=== PATIENT | female | born 1960 | race Caucasian/White ===

== ENCOUNTER → 2018-03-12 10:34 | Outpatient (CLI) | payer OTHER, SELFPAY ==
[2018-03-12 14:34] LABS: Bilirubin Urine UA NEGATIVE (NEGATIVE); Color Urine UA YELLOW; Glucose Urine UA NEGATIVE (Normal); Ketones Urine UA NEGATIVE (NEGATIVE); Leukocyte Esterase Urine UA 3+ (NEGATIVE); Nitrite Urine UA Negative (Negative); Occult Blood Urine UA TRACE-LYSED (Negative); Protein Urine UA NEGATIVE (Negative); Specific Gravity Urine UA <=1.005 (1.000-1.035); Urobilinogen Urine UA 0.2 E.U./dL (0.2)
[2018-03-12 14:59] LABS: Appearance Urine UA Slightly Cloudy; RBC Urine 0-1/HPF (0-5/HPF)
[2018-03-12 15:00] LABS: Bacteria Urine Many (>30); Culture Indicated Urine Specimen Cultured; Mucus Urine 1+ (Negative); Squamous Epithelial Cell Urine 0-1 /HPF; WBC Urine 30-100/HPF (0-5/HPF)
== END ==
PROVIDERS: PCP Family Medicine; Visit Provider Internal Medicine
DX: R30.0 Dysuria (principal)
CPT/HCPCS: 81001; 87077; 87086; 87186

== ENCOUNTER → 2018-03-27 14:28 | Outpatient (CLI) | payer OTHER, SELFPAY ==
[2018-03-27 14:36] LABS: Bacteria Urine None Seen
[2018-03-27 15:01] LABS: Appearance Urine UA CLEAR; Bilirubin Urine UA NEGATIVE (NEGATIVE); Color Urine UA ORANGE; Ketones Urine UA NEGATIVE (NEGATIVE); Occult Blood Urine UA NEGATIVE (Negative); Specific Gravity Urine UA <=1.005 (1.000-1.035)
[2018-03-27 15:32] LABS: Culture Indicated Urine Specimen Cultured; RBC Urine 0-1/HPF (0-5/HPF); WBC Urine 10-30/HPF (0-5/HPF)
== END ==
PROVIDERS: Visit Provider Internal Medicine
DX: R39.9 Unspecified symptoms and signs involving the genitourinary system (principal)
CPT/HCPCS: 81001; 87077; 87086; 87186

== ENCOUNTER → 2018-05-15 12:51 | Outpatient (CLI) | payer OTHER, SELFPAY ==
[2018-05-15 13:37] LABS: Add Manual Diff / Slide Review NO; Basophils Percent Auto 0.6 % (0-2); Eosinophils Percent Auto 0.5 % (2-4); Hematocrit 41.1 % (36-46); Hemoglobin 13.7 g/dL (12.0-16.0); Lymphocytes Percent Auto 22.8 % (25-40); Mean Corpuscular HGB Conc 33.4 % (30-36); Mean Corpuscular Hemoglobin 32.7 PG (26-34); Monocytes Percent Auto 6.8 % (3-14); Neutrophils Absolute Auto 4200 /uL (3000-5900); Neutrophils Percent Auto 69.3 % (50-75); Platelet Count 299 X10^3/uL (150-400); Red Blood Cell Count 4.19 X10^6/uL (4.0-5.2); White Blood Cell Count 6.1 X10^3/uL (4.5-11.0)
[2018-05-15 13:48] LABS: Alanine Aminotransferase 25 IU/L (9-52)
[2018-05-15 13:51] LABS: C-Reactive Protein Quant < 0.5 mg/dL (<1.0)
[2018-05-15 14:13] LABS: Erythrocyte Sedimentation Rate 4 MM/HR (0-20)
[2018-05-16 12:58] LABS: Add Manual Diff / Slide Review NO; Basophils Percent Auto 0.7 % (0-2); Eosinophils Percent Auto 1.2 % (2-4); Hematocrit 39.5 % (36-46); Hemoglobin 13.2 g/dL (12.0-16.0); Lymphocytes Percent Auto 29.2 % (25-40); Mean Corpuscular HGB Conc 33.4 % (30-36); Mean Corpuscular Hemoglobin 32.8 PG (26-34); Mean Corpuscular Volume 98.1 fL (80-100); Monocytes Percent Auto 9.3 % (3-14); Neutrophils Absolute Auto 3000 /uL (3000-5900); Neutrophils Percent Auto 59.6 % (50-75); Platelet Count 289 X10^3/uL (150-400); Red Blood Cell Count 4.03 X10^6/uL (4.0-5.2); Red Cell Distribution Width 12.9 % (11.6-14.8); White Blood Cell Count 5.1 X10^3/uL (4.5-11.0)
[2018-05-16 13:07] LABS: Alanine Aminotransferase 24 IU/L (9-52); Albumin 4.5 g/dL (3.5-5.0); Albumin Globulin Ratio 1.6 (1.0-2.8); Alkaline Phosphatase 49 U/L (38-126); Aspartate Aminotransferase 26 IU/L (14-36); Bilirubin Total 0.8 mg/dL (0.2-1.3); Blood Urea Nitrogen 14 mg/dL (7-17); Calcium 9.4 mg/dL (8.4-10.2); Carbon Dioxide 27 mmol/L (22-32); Chloride 101 mmol/L (98-107); Cholesterol 192 mg/dL (140-199); Estimated Glomerular Filt Rate > 60.0 mL/min (>60); Globulin 2.8 g/dL (1.7-4.1); Glucose 84 mg/dL (70-100); HDL Cholesterol 95 mg/dL (40-60); HEMOLYSIS < 15 (0-50); LDL Cholesterol Calculated 86 mg/dL (<100); Potassium 4.9 mmol/L (3.4-5.1); Sodium 139 mmol/L (137-145); Total Protein 7.3 g/dL (6.3-8.2); Triglycerides 57 mg/dL (35-150)
[2018-05-16 13:24] LABS: Free T3, Triiodothyronine Free 3.09 pg/mL (2.77-5.27); Free T4, Direct Thyroxine 0.83 ng/dL (0.78-2.19)
[2018-05-16 13:37] LABS: Thyroid Stimulating Hormone 1.22 uIU/mL (0.47-4.68)
== END ==
PROVIDERS: Family Medicine; Family Provider Obstetrics & Gynecology; PCP Family Medicine; Visit Provider Internal Medicine Gastroenterology
DX: K50.90 Crohn's disease, unspecified, without complications (principal); M54.5 Low back pain
CPT/HCPCS: 36415; 80053; 80061; 84439; 84443; 84460; 84481; 85025; 85651; 86140

== ENCOUNTER → 2018-05-16 12:22 | Outpatient (CLI) | payer OTHER, SELFPAY | PROVIDERS: Family Provider Obstetrics & Gynecology; PCP Family Medicine; Visit Provider Family Medicine | DX: R23.2 Flushing (principal) ==

== ENCOUNTER → 2018-07-25 11:55 | Outpatient (CLI) | payer OTHER, SELFPAY ==
[2018-07-25 12:32] LABS: Appearance Urine UA SL CLOUDY; Bilirubin Urine UA NEGATIVE (NEGATIVE); Color Urine UA YELLOW; Glucose Urine UA NEGATIVE (Negative); Ketones Urine UA NEGATIVE (NEGATIVE); Leukocyte Esterase Urine UA 2+ (NEGATIVE); Nitrite Urine UA POSITIVE (Negative); Occult Blood Urine UA NEGATIVE (Negative); Protein Urine UA NEGATIVE (Negative); Specific Gravity Urine UA <=1.005 (1.000-1.035); Urobilinogen Urine UA 0.2 E.U./dL (0.2)
[2018-07-25 12:34] LABS: RBC Urine None Seen (0-5/HPF)
[2018-07-25 12:47] LABS: Bacteria Urine Many (>30); Culture Indicated Urine Specimen Cultured; Squamous Epithelial Cell Urine 1-5 /HPF; WBC Urine 10-30/HPF (0-5/HPF)
== END ==
PROVIDERS: Family Provider Obstetrics & Gynecology; PCP Family Medicine; Visit Provider Family Medicine
DX: R30.0 Dysuria (principal)
CPT/HCPCS: 81003; 81015; 87077; 87086; 87186

== ENCOUNTER → 2018-10-05 13:48 | Outpatient (CLI) | payer OTHER, SELFPAY ==
--- NOTE | 2018-10-05 13:48 | DI.US.S_ITS ---
PROCEDURE: US SOFT TISSUE HEAD AND NECK INDICATIONS: LUMP/SWELLING OF LEFT NECK TECHNIQUE: Real-time scanning was performed of the neck region of interest, with image documentation. COMPARISON: [facility], US, SOFT TISSUE HEAD OR NECK, 04/25/2017, 7:22. FINDINGS: 7 mm lymph node corresponds to the palpable abnormality within the anterior left neck. IMPRESSION: 7 mm left neck lymph node corresponding to the palpable abnormality. Recommend clinical correlation and management. Dictated by: Craig PARSON Interpreted: Percy Parra MD on 10/05/2018 at 15:54 Approved by: Percy Parra M.D. on 10/05/2018 at 17:40
== END ==
PROVIDERS: Family Provider Obstetrics & Gynecology; PCP Family Medicine; Visit Provider Obstetrics & Gynecology
DX: R22.1 Localized swelling, mass and lump, neck (principal)
CPT/HCPCS: 76536

== ENCOUNTER → 2018-10-24 15:37 | Outpatient (CLI) | payer OTHER, SELFPAY ==
--- NOTE | 2018-10-24 | DI.MG.S_ITS ---
BILATERAL DIGITAL SCREENING MAMMOGRAM 3D/2D WITH CAD: 10/24/2018 CLINICAL: Routine screening. Family history of breast cancer. Comparison is made to exams dated: 06/01/2017 mammogram, 05/25/2016 mammogram, and 10/17/2012 mammogram - [facility]. The tissue of both breasts is heterogeneously dense. This may lower the sensitivity of mammography. Current study was also evaluated with a Computer Aided Detection (CAD) system. No significant masses, calcifications, or other findings are seen in either breast. There has been no significant interval change. IMPRESSION: NEGATIVE There is no mammographic evidence of malignancy. A 1 year screening mammogram is recommended. This exam was interpreted at Station ID: [id number]. NOTE: For mammograms, a report in lay terms will be sent to the patient. Approximately 15% of breast malignancies will not be visualized mammographically. In the management of a palpable breast mass, a negative mammogram must not discourage biopsy of a clinically suspicious lesion. Electronically Signed By: Danielle fuentes/edyta:10/24/2018 16:22:53 letter sent: Normal Exam ACR BI-RADS Category 1: Negative [id number]
== END ==
PROVIDERS: PCP Family Medicine; Visit Provider Obstetrics & Gynecology
DX: Z12.31 Encounter for screening mammogram for malignant neoplasm of breast (principal)
CPT/HCPCS: 77063; 77067

== ENCOUNTER → 2018-11-12 10:41 | Outpatient (CLI) | payer OTHER, SELFPAY ==
[2018-11-12 11:50] LABS: Add Manual Diff / Slide Review NO; Basophils Absolute Auto 0 /uL (0-100); Basophils Percent Auto 0.3 % (0-2); Eosinophils Absolute Auto 0 /uL (0-450); Eosinophils Percent Auto 0.1 % (2-4); Hematocrit 41.5 % (36-46); Hemoglobin 13.8 g/dL (12.0-16.0); Lymphocytes Absolute Auto 1400 /uL (1100-4500); Lymphocytes Percent Auto 23.3 % (25-40); Mean Corpuscular HGB Conc 33.2 % (30-36); Mean Corpuscular Volume 99.4 fL (80-100); Monocytes Absolute Auto 500 /uL (0-900); Monocytes Percent Auto 8.6 % (3-14); Neutrophils Absolute Auto 4100 /uL (1500-7000); Neutrophils Percent Auto 67.7 % (50-75); Platelet Count 271 X10^3/uL (150-400); Red Blood Cell Count 4.18 X10^6/uL (4.0-5.2); Red Cell Distribution Width 13.4 % (11.6-14.8)
[2018-11-12 12:08] LABS: Erythrocyte Sedimentation Rate 6 MM/HR (0-20)
[2018-11-12 12:31] LABS: Alanine Aminotransferase 42 IU/L (9-52)
[2018-11-12 12:37] LABS: C-Reactive Protein Quant < 0.5 mg/dL (<1.0)
== END ==
PROVIDERS: Family Provider Obstetrics & Gynecology; PCP Family Medicine; Visit Provider Internal Medicine Gastroenterology
DX: K50.90 Crohn's disease, unspecified, without complications (principal)
CPT/HCPCS: 36415; 84460; 85025; 85651; 86140

== ENCOUNTER → 2018-11-14 09:14 | Outpatient (CLI) | payer OTHER, SELFPAY ==
--- NOTE | 2018-11-14 | DI.US.S_ITS ---
PROCEDURE: US SOFT TISSUE HEAD AND NECK INDICATIONS: LOCALIZED ENLARGED LYMPH NODE TECHNIQUE: Real-time scanning was performed of the neck region of interest, with image documentation. COMPARISON: [facility], , SOFT TISSUE HEAD OR NECK, 04/25/2017, 7:22. [facility], US SOFT TISSUE HEAD AND NECK, 10/05/2018, 13:54. FINDINGS: There is redemonstration of left anterior neck lymph node which measures approximately 2.2 x 0.6 x 0.8 cm, with no definite cortical thickening. Previously this measured 2.1 x 0.7 x 0.6 cm on 10/05/18, and 2.4 x 0.8 x 0.9 cm on a more remote prior study dated 04/25/17. Per discussion with the patient, this has been a palpable finding at least dating back to 04/25/17. It is located in the region of the the carotid bifurcation IMPRESSION: Overall, grossly stable to minimally decreased size and appearance of left anterior cervical lymph node without definite pathologic enlargement. Furthermore the patient states this has been grossly stable by palpation for least 2 years. Given the increased risk of FNA due to proximity of the carotid vessels, and low suspicion, decision was made to cancel the biopsy. If warranted, continued ultrasound surveillance could be considered based on clinical exam findings/changes. I personally discussed this with the patient at the time of the study on 11/14/18, and all questions were answered. Dictated by: Kaz Calixto M.D. on 11/14/2018 at 10:32 Approved by: Kaz Calixto M.D. on 11/14/2018 at 10:37
== END ==
PROVIDERS: Family Provider Obstetrics & Gynecology; PCP Family Medicine; Visit Provider Specialist
DX: R59.0 Localized enlarged lymph nodes (principal)
CPT/HCPCS: 76536

== ENCOUNTER 2018-11-30 14:44 | Emergency (ER) | payer OTHER, SELFPAY ==
[2018-11-30 14:58] VITALS: BP 169/97; PULSE 60; RESP 20; TEMP 35.8; O2SAT 100
[2018-11-30 16:07] VITALS: BP 157/101; PULSE 68; RESP 15; O2SAT 98
--- NOTE | 2018-11-30 16:12 | DI.CT.S_ITS ---
PROCEDURE: CT HEAD/BRAIN WO CON INDICATIONS: new onset headache with vision changes TECHNIQUE: Noncontrast 4.5 mm thick angled axial sections acquired from the foramen magnum to the vertex, with coronal and sagittal reformats. For radiation dose reduction, the following was used: automated exposure control, adjustment of mA and/or kV according to patient size. COMPARISON: None. FINDINGS: Image quality: Excellent. CSF spaces: Basal cisterns are patent. No extra-axial fluid collections. Ventricles are normal in size and shape. Brain: No midline shift. No intracranial masses or hemorrhage. Weber-white matter interface is normal. Skull and face: Calvarium and visualized facial bones are intact, without suspicious lesions. Sinuses: Visualized sinuses and mastoids are clear. IMPRESSION: Unremarkable intracranial study. No acute intracranial hemorrhage. Dictated by: Kyree Castro M.D. on 11/30/2018 at 15:58 Approved by: Kyree Castro M.D. on 11/30/2018 at 15:59
[2018-11-30 16:38] LABS: Add Manual Diff / Slide Review NO; Basophils Absolute Auto 0 /uL (0-100); Basophils Percent Auto 0.4 % (0-2); Eosinophils Absolute Auto 0 /uL (0-450); Eosinophils Percent Auto 0.2 % (2-4); Hematocrit 42.5 % (36-46); Hemoglobin 14.2 g/dL (12.0-16.0); Lymphocytes Absolute Auto 1500 /uL (1100-4500); Lymphocytes Percent Auto 19.3 % (25-40); Mean Corpuscular HGB Conc 33.3 % (30-36); Mean Corpuscular Hemoglobin 32.7 PG (26-34); Monocytes Absolute Auto 600 /uL (0-900); Monocytes Percent Auto 7.6 % (3-14); Neutrophils Absolute Auto 5600 /uL (1500-7000); Neutrophils Percent Auto 72.5 % (50-75); Platelet Count 296 X10^3/uL (150-400); Red Blood Cell Count 4.33 X10^6/uL (4.0-5.2); Red Cell Distribution Width 12.9 % (11.6-14.8); White Blood Cell Count 7.8 X10^3/uL (4.5-11.0)
--- NOTE | 2018-11-30 16:38 | ED_ITS ---
HPI - Headache General Chief Complaint: Headache Stated Complaint: sent by walk in, sharp pains in head Time Seen by Provider: 11/30/18 15:40 Source: patient Mode of arrival: ambulatory Limitations: no limitations History of Present Illness HPI Narrative: Patient is a 58-year-old female presenting with a right-sided head twinges lasting 3-5 seconds. They have come quite frequently today. 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 It started yesterday at the airport on the return flight. She really says it is not a headache. She did not notice that she had vision changes really until the walk-in clinic had her track with her eyes. At that time she was seeing double and had a hard time controlling it. She says overall that has improved but now he does have some blurry vision. She does not get headaches. This is completely out of the ordinary for her. She has no arm or leg weakness. Persistent vomiting. But is experiencing some nausea. She denies any neck pain or fever. Related Data Previous Rx's Medication Instructions Recorded linaclotide [Linzess] 145 mcg PO BID #60 cap 03/28/16 biest 50:50 testosterone See Rx Instructions .ROUTE 06/27/18 .COMPLEX #1 gram progesterone E4 125 mg PO DAILY #1 tab 06/27/18 alprazolam 1 mg tablet 1 mg PO QHS #30 tab 07/11/18 CMP Testosterone Cream 2% See Rx Instructions .ROUTE 09/26/18 .COMPLEX #30 gram estradiol 0.05 mg/24 hr semiweekly 1 patch TRANSDERMAL 2XW #8 each 09/26/18 transdermal patch estradiol 0.05 mg/24 hr semiweekly 1 patch TRANSDERMAL 2XW #8 each 09/26/18 transdermal patch nitrofurantoin macrocrystal 100 mg 100 mg PO BID #14 cap 11/21/18 capsule ciprofloxacin 0.3 %-dexamethasone 4 drop OTIC (EAR) BID #7.5 ml 11/22/18 0.1 % ear drops,suspension Allergies Allergy/AdvReac Type Severity Reaction Status Date / Time amoxicillin AdvReac Severe red Verified 11/30/18 16:16 peeling skin hands/ears Review of Systems Review of Systems ROS Unobtainable: All systems reviewed & are unremarkable except as noted in HPI and below Constitutional Denies chills, Denies fever(s), Reports headache(s), Denies lethargy and Denies weakness Eyes Reports as per HPI and Reports blurry vision ENT Ears, Nose, Mouth, and Throat: Denies change in voice, Reports headache(s), Denies neck pain and Denies sore throat Cardiovascular Denies chest pain, Denies irregular heart rhythm, Denies lightheadedness, Denies palpitations, Denies dyspnea, Denies dyspnea on exertion and Denies orthopnea Respiratory Denies cough, Denies dyspnea, Denies dyspnea on exertion and Denies wheezing Gastrointestinal Gastrointestinal: Denies abdominal pain, Denies change in bowel habits, Denies diarrhea, Denies nausea and Denies vomiting Genitourinary Denies hematuria, Denies flank pain, Denies urinary incontinence and Denies urin ananya urgency Musculoskeletal Denies neck pain Integumentary/Breasts Denies pruritus, Denies erythema, Denies rash and Denies wounds Neurologic Reports as per HPI, Denies confusion, Reports headache(s) and Denies weakness Psychiatric Denies anxiety, Denies confusion, Denies depression, Denies homicidal ideation and Denies suicidal ideation Endocrine Denies palpitations Allergic/Immunologic Denies wheezing [facility] Medical History Irritable bowel syndrome (Chronic ~2015) Crohn's disease (Chronic ~2000) Chronic back pain (Chronic ~2003) Colitis (Chronic ~2000) Colon polyps (Chronic ~2000) Hearing deficit (Chronic) Menopause (Chronic) Ovarian cyst (Chronic) Scoliosis (Chronic) Skin cancer (Chronic ~2014) Surgical History Anesthesia (Resolved) Burn of arm (Resolved) History of cystoscopy (Resolved) History of neck surgery (Resolved ~2004) History of surgery (Resolved) History of surgery (Resolved ~03/2013) Status post hysterectomy (~2007) Status post laparoscopic cholecystectomy (~1979) Family History Father Age: 80 Hypertension Grandfather Stroke Grandmother Breast CA Mother Age: 77 Hypertension Obesity Grandmother Colon cancer Social History marital status: household members: spouse lives independently: Yes caregiver/support person: No housing: house Smoking Status: Former smoker second hand exposure: No alcohol intake: current substance use type: does not use Family History Father Age: 80 Hypertension Grandfather Stroke Grandmother Breast CA Mother Age: 77 Hypertension Obesity Grandmother Colon cancer Social History marital status: household members: spouse lives independently: Yes caregiver/support person: No housing: house Smoking Status: Former smoker second hand exposure: No alcohol intake: current substance use type: does not use Exam Initial Vital Signs Initial Vital Signs: Vital Signs Temperature 96.4 F L 11/30/18 14:58 Pulse Rate 60 11/30/18 14:58 Respiratory Rate 20 11/30/18 14:58 Blood Pressure 169/97 H 11/30/18 14:58 Pulse Oximetry 100 11/30/18 14:58 GENERAL: Well-appearing, well-nourished and in no acute distress. HEENT: Head atraumatic,EOMI, pupils reactive, face symmetric, moist mucous membranes NECK: Supple CARDIOVASCULAR: Regular rate and rhythm without murmurs, rubs or gallops. RESPIRATORY: Breath sounds equal bilaterally, no wheezes rales or rhonchi. ABDOMEN: Soft, nontender. Normoactive bowel sounds all 4 quadrants. No guarding or rebound. EXTREMITIES: Normal range of motion, no clubbing or edema. Neurovascularly intact NEUROLOGICAL: Alert and oriented x4.Normal gait and speech. Cranial nerves II through XII grossly intact. Good [id number], good [id number], strength equal bilaterally, no dysarthria or aphasia, sensation in tact to soft touch bilaterally, no visual changes, no facial droop SKIN: Warm, dry, no laceration, no petechiae, no rashes or lesions. Scores NIH Stroke Scale Level of Conciousness: Alert, keenly responsive Ask month/age: Answers both questions correctly. Open/close eyes, close hand: Performs both tasks correctly Best gaze horizontal: Normal Visual mccracken: No visual loss Facial palsy: Normal symetrical movement Left arm drift: No drift for full 10 sec Right arm drift: No drift for full 10 sec Left leg drift: No drift for full 10 sec Right leg drift: No drift for full 10 sec Limb ataxia: Absent Sensory on face/arms/legs: Normal, no sensory loss Best language: No aphasia, normal Dysarthria: Normal Extinction or inattention: No abnormality Total NIH Stroke scale score: 0 Course Orders Ordered: ED Orders 11/30/18 16:12 CT head/brain wo con Stat 11/30/18 16:30 Basic Metabolic Panel Stat Complete Blood Count AUTO DIFF Stat Discontinued Medications Ketorolac Tromethamine (Toradol) 30 mg IV NOW ONE Stop: 11/30/18 16:13 Last Admin: 11/30/18 16:46 Dose: 30 mg Ondansetron HCl (Zofran) 4 mg IV NOW ONE Stop: 11/30/18 16:13 Last Admin: 11/30/18 16:46 Dose: 4 mg Vital Signs - 8 hr 11/30/18 14:58 11/30/18 16:07 11/30/18 17:04 Temperature 96.4 F L Pulse Rate 60 68 59 L Respiratory Rate 20 15 17 Blood Pressure 169/97 H Blood Pressure [Left Arm] 157/101 H 165/90 H Pulse Oximetry 100 98 100 MDM - Headache Lab Data Attestation: I reviewed the patient's lab results. Result diagrams: 11/30/18 16:30 11/30/18 16:30 Lab Results 11/30/18 11/30/18 Range/Units 16:30 16:30 WBC 7.8 (4.5-11.0) X10^3/uL RBC 4.33 (4.0-5.2) X10^6/uL Hgb 14.2 (12.0-16.0) g/dL Hct 42.5 (36-46) % MCV 98.0 (80-100) fL MCH 32.7 (26-34) PG MCHC 33.3 (30-36) % RDW 12.9 (11.6-14.8) % Plt Count 296 (150-400) X10^3/uL Neut % (Auto) 72.5 (50-75) % Lymph % (Auto) 19.3 L (25-40) % [place] % (Auto) 7.6 (3-14) % Eos % (Auto) 0.2 L (2-4) % Baso % (Auto) 0.4 (0-2) % Neut # (Auto) 5600 (7470-9041) /uL Lymph # (Auto) 1500 (8475-1837) /uL [place] # (Auto) 600 (0-900) /uL Eos # (Auto) 0 (0-450) /uL Baso # (Auto) 0 (0-100) /uL Sodium 139 (137-145) mmol/L Potassium 3.9 (3.4-5.1) mmol/L Chloride 101 (98-107) mmol/L Carbon Dioxide 29 (22-32) mmol/L BUN 19 H (7-17) mg/dL Creatinine 0.70 (0.52-1.04) mg/dL Estimated GFR > 60.0 (>60) mL/min BUN/Creatinine Ratio 27.1 H (6-22) Glucose 92 (70-100) mg/dL Calcium 10.0 (8.4-10.2) mg/dL Imaging Data CT scan - head: Radiologist's impression: PROCEDURE: CT HEAD/BRAIN WO CON INDICATIONS: new onset headache with vision changes TECHNIQUE: Noncontrast 4.5 mm thick angled axial sections acquired from the foramen magnum to the vertex, with coronal and sagittal reformats. For radiation dose reduction, the following was used: automated exposure control, adjustment of mA and/or kV according to patient size. COMPARISON: None. FINDINGS: Image quality: Excellent. CSF spaces: Basal cisterns are patent. No extra-axial fluid collections. Ventricles are normal in size and shape. Brain: No midline shift. No intracranial masses or hemorrhage. Weber-white matter interface is normal. Skull and face: Calvarium and visualized facial bones are intact, without suspicious lesions. Sinuses: Visualized sinuses and mastoids are clear. IMPRESSION: Unremarkable intracranial study. No acute intracranial hemorrhage. Dictated by: Kyree Castro M.D. on 11/30/2018 at 15:58 MDM Narrative Medical decision making narrative: Patient overall is feeling much better after Toradol and Zofran. Unclear what her symptoms are from. But she is feeling better and had a negative head CT no focal deficits. I have considered several life threatening etiologies for the patients headache such as temporal arteritis, migraine, meningitis, CVA and this patients presentation is not consistent with such entities and therefore , no further testing was warranted. Discharge Plan Departure Patient Disposition: Home Clinical Impression: Headache Qualifiers: Headache type: unspecified Headache chronicity pattern: acute headache Intractability: not intractable Qualified Code(s): R51 - Headache Discharge Date/Time: 11/30/18 17:40 Interventions: ED Discharge Assessment Last Done: 11/30/18 17:40 Instructions: DI for Headache Activity Restrictions/Additional Instructions: *You have been diagnosed with headache *What to do: CT scan and blood work are reassuring today. Recommend getting some rest and hydration *Continue to take medications as directed *Follow up with your primary care provider in 2-3 days *Return to ER if you should have worsening headache visual changes week or any new, worsening or concerning symptoms Prescriptions: No Action linaclotide [Linzess] 145 MCG capsule 145 mcg PO BID Qty: 60 RF: 3 alprazolam 1 mg tablet 1 mg PO QHS Qty: 30 RF: 0 nitrofurantoin macrocrystal 100 mg capsule 100 mg PO BID Qty: 14 RF: 0 biest 50:50 testosterone See Rx Instructions .ROUTE .COMPLEX Qty: 1 RF: 0 progesterone E4 125 mg PO DAILY Qty: 1 RF: 0 estradiol [Vivelle-Dot] 0.05 mg/24 hr patch semiweekly 1 patch Transdermal 2XW Qty: 8 RF: 11 estradiol [Vivelle-Dot] 0.05 mg/24 hr patch semiweekly 1 patch Transdermal 2XW Qty: 8 RF: 3 CMP Testosterone Cream 2% See Rx Instructions .ROUTE .COMPLEX Qty: 30 RF: 3 Ciprodex 0.3-0.1 % drops,suspension 4 drop otic (ear) BID Qty: 7.5 RF: 1 Referrals: Mariela Robles MD [Primary Care Provider] -
[2018-11-30] MEDS: ONDANSETRON 4 MG/2 ML INJ IV (16:46)
[2018-11-30] MEDS: KETOROLAC 60 MG/2 ML VIAL 30 MG IV (16:46)
[2018-11-30 16:52] LABS: BUN Creatinine Ratio 27.1 (6-22); Blood Urea Nitrogen 19 mg/dL (7-17); Carbon Dioxide 29 mmol/L (22-32); Chloride 101 mmol/L (98-107); Estimated Glomerular Filt Rate > 60.0 mL/min (>60); Glucose 92 mg/dL (70-100); HEMOLYSIS < 15 (0-50); Potassium 3.9 mmol/L (3.4-5.1); Sodium 139 mmol/L (137-145)
[2018-11-30 17:04] VITALS: BP 165/90; PULSE 59; RESP 17; O2SAT 100
== END 2018-11-30 17:40 | disposition home or self-care (01) ==
PROVIDERS: Emergency Provider Emergency Medicine; Family Provider Obstetrics & Gynecology; PCP Family Medicine
DX: R51 Headache (principal); H53.8 Other visual disturbances; H53.2 Diplopia; R11.2 Nausea with vomiting, unspecified
CPT/HCPCS: 36415; 36591; 70450; 80048; 85025; 96374; 96375; 99282; 99284; J1885; J2405

== ENCOUNTER → 2019-04-26 07:47 | Outpatient (CLI) | payer OTHER, SELFPAY ==
--- NOTE | 2019-04-26 | DI.MRI.S_ITS ---
PROCEDURE: MR LUMBAR SPINE WO CON INDICATIONS: LOW BACK AND LEFT HIP PAIN TECHNIQUE: Noncontrast sagittal T1 spin echo and T2 fast echo, sagittal STIR, axial T1 and T2 fast spin echo through the lumbar spine. In cases with scoliosis, additional coronal T2 fast spin echo may be performed. COMPARISON: [facility], CR, XR LUMBAR SPINE WITH OLBIQUES PLUS FLEXION EXTENSION, 04/15/2019, 15:05. [facility], MR, L-SPINE WITHOUT CONTRAST, 10/03/2017, 13:32. FINDINGS: Image quality: Excellent. Alignment and Curvature: There is levoconvex scoliotic curvature with apex at L2. There is trace retrolisthesis of L2 on L3, L4 and L5, L5 on S1 and trace anterolisthesis of L3 on L4. There are relatively unchanged. Bone Marrow: Marrow is of normal overall signal. Moderate reactive endplate changes are present at L4-5, increased compared to prior exam. No acute vertebral body compression fractures. Spinal Cord: Conus medullaris terminates at the L1-L2 level. Visualized cord demonstrates normal signal and size. Paraspinous Soft Tissues: No paravertebral masses. Discs: Moderate to severe desiccation is present at L4-5, moderate at L2-3, L3-4, L5-S1 and mild at L1-L2. L1-L2: Mild disc bulge without spinal stenosis. Minimal left foraminal narrowing with facet and ligamentum flavum hypertrophy. Minimal interval progression. L2-L3: Mild disc bulge with mild to canal narrowing. Minimal epidural lipomatosis is present. Mild bilateral foraminal narrowing with facet and ligamentum flavum hypertrophy. No interval change. L3-L4: Mild disc bulge with moderate spinal stenosis. Minimal epidural lipomatosis is present. Mild to moderate bilateral foraminal narrowing with facet and ligamentum flavum hypertrophy. No interval change. L4-L5: Mild disc bulge with moderate spinal stenosis. Mild to moderate right and moderate left foraminal narrowing with facet and ligamentum flavum hypertrophy. Minimal epidural lipomatosis is noted. Annular fissure is noted. L5-S1: Mild disc bulge with left posterior paracentral protrusion, unchanged. No spinal stenosis. Mild bilateral foraminal narrowing with facet and ligamentum flavum hypertrophy. Annular fissure is again noted. IMPRESSION: 1. Multilevel degenerative changes with areas of interval progression as noted above. 2. Multilevel spinal stenosis most prominent at L3-4 and L4-5 secondary to disc bulge with constricting fracture of facet/ligamentum flavum arthropathy and minimal epidural lipomatosis. 3. Multilevel foraminal narrowing most severe at L4-5 secondary to facet arthropathy. Dictated by: Ruth An M.D. on 04/26/2019 at 10:32 Approved by: Ruth An M.D. on 04/26/2019 at 10:55
== END ==
PROVIDERS: Family Provider Obstetrics & Gynecology; PCP Family Medicine; Visit Provider Physical Medicine & Rehabilitation Pain Medicine
DX: M54.5 Low back pain (principal); M25.552 Pain in left hip; M47.816 Spondylosis without myelopathy or radiculopathy, lumbar region; M48.061 Spinal stenosis, lumbar region without neurogenic claudication; M51.26 Other intervertebral disc displacement, lumbar region
CPT/HCPCS: 72148

== ENCOUNTER → 2019-12-17 13:25 | Outpatient (CLI) | payer OTHER, SELFPAY ==
[2019-12-17 13:56] LABS: Add Manual Diff / Slide Review NO; Basophils Absolute Auto 0 /uL (0-100); Basophils Percent Auto 0.4 % (0-2); Eosinophils Absolute Auto 0 /uL (0-450); Eosinophils Percent Auto 0.2 % (2-4); Hematocrit 38.2 % (36-46); Hemoglobin 13.1 g/dL (12.0-16.0); Lymphocytes Absolute Auto 1600 /uL (1100-4500); Lymphocytes Percent Auto 26.6 % (25-40); Mean Corpuscular HGB Conc 34.3 % (30-36); Mean Corpuscular Hemoglobin 33.7 PG (26-34); Mean Corpuscular Volume 98.2 fL (80-100); Monocytes Absolute Auto 500 /uL (0-900); Monocytes Percent Auto 7.7 % (3-14); Neutrophils Absolute Auto 3900 /uL (1500-7000); Neutrophils Percent Auto 65.1 % (50-75); Platelet Count 282 X10^3/uL (150-400); Red Blood Cell Count 3.88 X10^6/uL (4.0-5.2); Red Cell Distribution Width 12.8 % (11.6-14.8)
[2019-12-17 14:24] LABS: Alanine Aminotransferase 16 IU/L (<35)
[2019-12-17 14:27] LABS: C-Reactive Protein Quant < 0.5 mg/dL (<1.0)
[2019-12-17 14:29] LABS: Erythrocyte Sedimentation Rate 5 MM/HR (0-20)
== END ==
PROVIDERS: Family Provider Obstetrics & Gynecology; PCP Family Medicine; Referring Provider Internal Medicine Gastroenterology; Visit Provider Internal Medicine Gastroenterology
DX: K50.90 Crohn's disease, unspecified, without complications (principal)
CPT/HCPCS: 36415; 84460; 85025; 85651; 86140

== ENCOUNTER → 2020-01-28 13:01 | Outpatient (CLI) | payer OTHER, SELFPAY ==
--- NOTE | 2020-01-28 13:03 | DI.US.S_ITS ---
PROCEDURE: US SOFT TISSUE HEAD AND NECK INDICATIONS: ENLARGED LYMPH NODE LEFT SIDE TECHNIQUE: Real-time scanning was performed of the neck region of interest, with image documentation. COMPARISON: [facility], , US SOFT TISSUE HEAD AND NECK, 11/14/2018, 9:23. FINDINGS: Stable appearance of morphologically normal appearing left anterior neck lymph node measuring up to 6 mm in maximal short axis. IMPRESSION: Stable appearance of normal appearing left neck lymph node. Dictated by: Craig PARSON Interpreted: Destin Mckeon MD on 01/28/2020 at 13:59 Approved by: Destin Mckeon M.D. on 01/28/2020 at 14:35
== END ==
PROVIDERS: Family Provider Obstetrics & Gynecology; PCP Family Medicine; Referring Provider Family Medicine; Visit Provider Family Medicine
DX: R59.0 Localized enlarged lymph nodes (principal)
CPT/HCPCS: 76536

== ENCOUNTER → 2020-02-18 12:44 | Outpatient (CLI) | payer OTHER, SELFPAY ==
--- NOTE | 2020-02-18 | DI.MRI.S_ITS ---
PROCEDURE: MR SHOULDER LT WO CON INDICATIONS: Pain in left shoulder TECHNIQUE: Noncontrast oblique coronal T2 fast spin echo with fat saturation, oblique sagittal T1 spin echo and T2 fast spin echo with fat saturation, axial T1 spin echo and T2 fast spin echo with fat saturation through the shoulder. COMPARISON: None. FINDINGS: Image quality: Excellent. Rotator cuff: Tendinosis and low to moderate grade articular and bursal surface partial thickness tear involving distal supraspinatus at its insertion on the humeral head extending to musculotendinous junction is seen. Tendinosis and low-grade articular surface partial-thickness tear involving distal infraspinatus is also noted. Distal subscapularis tendon is intact. No full-thickness rotator cuff tendon rupture. Sagittal images demonstrate mild supraspinatus muscle atrophy. Bones and bursae: No bone marrow contusions or fractures. Moderate acromioclavicular joint osteoarthritic changes are seen with downward osteophyte formation depressing on musculotendinous junction of supraspinatus. Small amount of subacromial subdeltoid bursal fluid is seen. Mild to moderate glenohumeral joint osteoarthritic changes also seen. Capsule and soft tissues: In the absence of intra-articular contrast, subtle signal abnormality involving superior anterior labrum at 12 to 1 o'clock position is seen. The glenohumeral ligaments appear intact. The long head of the biceps tendon demonstrates normal location and morphology. The rotator interval appears normal, without fibrosis. The coracohumeral ligament is normal in thickness. IMPRESSION: 1. Tendinosis and low to moderate grade articular and bursal surface partial thickness tear involving distal supraspinatus extending to musculotendinous junction. Tendinosis and low-grade articular surface partial-thickness tear involving distal infraspinatus. Mild supraspinatus muscle atrophy. 2. Moderate acromioclavicular joint osteoarthritis and [id number] glenohumeral joint osteoarthritis. 3. Suggestion of focal superior anterior labral tear at 12 to 1 o'clock position. Dictated by: Percy Parra M.D. on 02/18/2020 at 15:38 Approved by: Percy Parra M.D. on 02/18/2020 at 15:41
== END ==
PROVIDERS: Family Provider Obstetrics & Gynecology; PCP Family Medicine; Referring Provider Family Medicine; Visit Provider Orthopaedic Surgery
DX: M25.512 Pain in left shoulder (principal); M19.012 Primary osteoarthritis, left shoulder; M75.112 Incomplete rotator cuff tear or rupture of left shoulder, not specified as traumatic
CPT/HCPCS: 73221

== ENCOUNTER → 2020-03-20 16:04 | Outpatient (CLI) | payer OTHER, SELFPAY ==
[2020-03-21 23:06] LABS: COVID19 Sendout Not Detected (Not Detected)
== END ==
PROVIDERS: Family Provider Obstetrics & Gynecology; PCP Family Medicine; Visit Provider Physician Assistant
DX: Z11.59 Encounter for screening for other viral diseases (principal); J02.9 Acute pharyngitis, unspecified
CPT/HCPCS: 87070; 87635

== ENCOUNTER 2020-05-20 15:37 | Observation (INO) | payer OTHER, SELFPAY ==
[2020-05-20] VITALS (11 sets, daily range): BP systolic 141–204; BP diastolic 75–93; PULSE 63–78; RESP 14–27; TEMP 36.8–37.1; O2SAT 98–100; BMI 22.1
--- NOTE | 2020-05-20 16:09 | DI.RAD.S_ITS ---
PROCEDURE: XR CHEST 1V INDICATIONS: chest pain TECHNIQUE: One view of the chest was acquired. COMPARISON: [facility], , CHEST 2 VIEW, 12/03/2008, 11:00. FINDINGS: Surgical changes and devices: Cervical fixation hardware is partially visualized and appears intact. Lungs and pleura: Lungs are clear. No pleural effusions or pneumothorax. Mediastinum: Mediastinal contours appear normal. Heart size is normal. Bones and chest wall: No suspicious bony lesions. Overlying soft tissues appear unremarkable. IMPRESSION: No acute cardiopulmonary findings. Dictated by: Danielle Mcallister M.D. on 05/20/2020 at 17:28 Approved by: Danielle Mcallister M.D. on 05/20/2020 at 17:29
--- NOTE | 2020-05-20 16:23 | PC.NURSE ---
started by Jemima nagel
[2020-05-20 16:39] LABS: Prothrombin Time 11.7 SECONDS (10.1-12.7)
[2020-05-20 16:42] LABS: PTT Partial Thromboplastin Tim 31 SECONDS (26.4-36.2)
[2020-05-20 16:43] LABS: Alanine Aminotransferase 20 IU/L (<35); Albumin 4.6 g/dL (3.5-5.0); Albumin Globulin Ratio 1.3 (1.0-2.8); Alkaline Phosphatase 55 U/L (38-126); Aspartate Aminotransferase 32 IU/L (14-36); BUN Creatinine Ratio 15.9 (6-22); Bilirubin Total 0.9 mg/dL (0.2-1.3); Blood Urea Nitrogen 11 mg/dL (7-17); Calcium 9.9 mg/dL (8.4-10.2); Carbon Dioxide 30 mmol/L (22-32); Chloride 104 mmol/L (98-107); Creatine Kinase 51 U/L (30-135); Estimated Glomerular Filt Rate > 60.0 mL/min (>60); Globulin 3.5 g/dL (1.7-4.1); Glucose 87 mg/dL (70-100); HEMOLYSIS < 15 (0-50); Lipase 88 U/L (23-300); Potassium 3.6 mmol/L (3.4-5.1); Sodium 139 mmol/L (137-145); Total Protein 8.1 g/dL (6.3-8.2)
[2020-05-20 16:50] LABS: Add Manual Diff / Slide Review NO; Basophils Absolute Auto 0 /uL (0-100); Basophils Percent Auto 0.6 % (0-2); Eosinophils Absolute Auto 0 /uL (0-450); Eosinophils Percent Auto 0.4 % (2-4); Hematocrit 41.2 % (36-46); Hemoglobin 13.4 g/dL (12.0-16.0); Lymphocytes Absolute Auto 1800 /uL (1100-4500); Lymphocytes Percent Auto 27.5 % (25-40); Mean Corpuscular HGB Conc 32.5 % (30-36); Mean Corpuscular Hemoglobin 32.4 PG (26-34); Mean Corpuscular Volume 99.8 fL (80-100); Monocytes Absolute Auto 600 /uL (0-900); Monocytes Percent Auto 9.2 % (3-14); Neutrophils Absolute Auto 4100 /uL (1500-7000); Neutrophils Percent Auto 62.3 % (50-75); Platelet Count 291 X10^3/uL (150-400); Red Blood Cell Count 4.13 X10^6/uL (4.0-5.2); Red Cell Distribution Width 13.4 % (11.6-14.8); White Blood Cell Count 6.6 X10^3/uL (4.5-11.0)
[2020-05-20 16:55] LABS: Troponin I < 0.012 ng/mL (0.01-0.034)
--- NOTE | 2020-05-20 17:30 | DI.CT.S_ITS ---
PROCEDURE: CT HEAD/BRAIN WO CON INDICATIONS: Left-sided headache TECHNIQUE: Noncontrast 4.5 mm thick angled axial sections acquired from the foramen magnum to the vertex, with coronal and sagittal reformats. For radiation dose reduction, the following was used: automated exposure control, adjustment of mA and/or kV according to patient size. COMPARISON: [facility], CT, CT HEAD/BRAIN WO CON, 11/30/2018, 16:32. FINDINGS: Image quality: Excellent. CSF spaces: Basal cisterns are patent. No extra-axial fluid collections. Ventricles are normal in size and shape. Brain: No midline shift. No intracranial masses or hemorrhage. Weber-white matter interface is normal. Skull and face: Calvarium and visualized facial bones are intact, without suspicious lesions. Sinuses: Visualized sinuses and mastoids are clear. IMPRESSION: No acute intracranial findings. Dictated by: Danielle Mcallister M.D. on 05/20/2020 at 18:08 Approved by: Danielle Mcallister M.D. on 05/20/2020 at 18:09
--- NOTE | 2020-05-20 17:34 | ED_ITS ---
HPI - Chest Pain General Chief Complaint: Chest Pain Stated Complaint: blood pressure issues, thinks TIA on monday Time Seen by Provider: 05/20/20 17:12 Source: patient and family Mode of arrival: Ambulatory History of Present Illness HPI narrative: Patient here with .. Complains of multiple symptoms. Symptoms started last Monday. Sudden onset of left temporal headache. No syncope. Feel nauseated. Since then has felt very tired. Blood pressure noted. For the weekend still did not feel well. Started developing nonspecific chest discomfort. Had COVID testing on Monday and was informed that was negative. Seen by Dr. Robles yesterday. No blood pressure medications started. Last time patient had blood pressure medication was more than 2 years ago. She has been monitoring her blood pressure in the last 2 months and systolic has been in 170. No altered mental status. No numbness tingling weakness on 1 side of body or the other. No slurred speech or facial droop. Headache much better now. Rates 07/26. Related Data Previous Rx's Medication Instructions Recorded Linzess 145 mcg PO BID #60 cap 03/28/16 alprazolam 1 mg tablet 1 mg PO QHS #90 tab 03/27/20 estradiol 0.05 mg/24 hr semiweekly See Rx Instructions .ROUTE 05/11/20 transdermal patch .COMPLEX #24 patch Allergies Allergy/AdvReac Type Severity Reaction Status Date / Time amoxicillin AdvReac Severe red Verified 05/19/20 08:49 peeling skin hands/ears Penicillins AdvReac Unknown Verified 05/19/20 08:49 Review of Systems Review of Systems Narrative: GENERAL: Denies chills, fatigue, malaise, fever, sweats. HEENT: Denies sinus pain, ear pain, sore throat, difficulty swallowing RESPIRATORY: Denies dyspnea, cough CARDIOVASCULAR: Complains chest pain, denied palpitations, edema, GASTROINTESTINAL: Denies nausea, vomiting, abdominal pain, diarrhea, constipation, melena. : Denies dysuria, frequency, hematuria MUSCULOSKELETAL: denies muscle or bony pain SKIN: Denies rash, skin lesions NEUROLOGIC: Denies weakness, complains of headache, denies numbness, change in speech, confusion PSYCHIATRIC: No SI or HI or hallucinations ROS Unobtainable: All systems reviewed & are unremarkable except as noted in HPI and below Patient History Medical History Chronic back pain (Chronic ~2003) Colitis (Chronic ~2000) Colon polyps (Chronic ~2000) Crohn's disease (Chronic ~2000) Hearing deficit (Chronic) Irritable bowel syndrome (Chronic ~2015) Menopause (Chronic) Ovarian cyst (Chronic) Scoliosis (Chronic) Skin cancer (Chronic ~2014) Surgical History Anesthesia (Resolved) Burn of arm (Resolved) History of cystoscopy (Resolved) History of neck surgery (Resolved ~2004) History of surgery (Resolved) History of surgery (Resolved ~03/2013) Status post hysterectomy (~2007) Status post laparoscopic cholecystectomy (~1979) Family History Father Age: 82 Hypertension Grandfather Stroke Grandmother Breast CA Mother Age: 79 Hypertension Obesity Grandmother Colon cancer Social History marital status: household members: spouse lives independently: Yes caregiver/support person: No housing: house Smoking Status: Former smoker second hand exposure: No alcohol intake: current substance use type: does not use Smoking Status: Former smoker alcohol intake frequency: 0-2 drinks per day Substance Use Type: does not use Exam Narrative Exam Narrative: GENERAL: patient appears stated age. Well-nourished, well- developed patient, in no distress, not toxic not dyspneic HEAD: Normocephalic. EYES: Pupils equal round and reactive. No scleral icterus. No injection no discharge. No photophobia ENT: Mucous membranes moist. No drooling no tongue elevation no trismus no malocclusion NECK: Trachea midline. Non tender CARDIOVASCULAR: Regular rate and rhythm without murmurs, gallops, or rubs. RESPIRATORY: Clear to auscultation. Breath sounds equal bilaterally. No wheezes, rales, or rhonchi. GASTROINTESTINAL: Abdomen soft, non-tender, nondistended. EXTREMITIES: No gross deformities. BACK: Nontender without deformity or crepitance. No flank tenderness. NEURO: AOx4. Clear speech no facial droop light touch intact to bilateral face hands and legs. Strong equal skiver operator. No pronator drift. Steady Romberg. Steady suffocate no footdrop. Strong bilateral patellar reflexes SKIN: Warm and dry PSYCH: Not anxious, is cooperative Initial Vital Signs Initial Vital Signs: Vital Signs Temperature 98.2 F 05/20/20 16:06 Pulse Rate 78 05/20/20 16:06 Respiratory Rate 18 05/20/20 16:06 Blood Pressure 204/91 H 05/20/20 16:06 Pulse Oximetry 100 05/20/20 16:06 Course Course Course Narrative: Reviewed with patient and . They agree for observation overnight for blood pressure control. No headache at this time Decision to Admit Date: 05/20/20 Decision to Admit time: 18:34 Orders Ordered: Lisinopril (Zestril) 5 mg PO BID JANIE Last Admin: 05/21/20 08:35 Dose: 5 mg Documented by: Admin: 05/20/20 21:32 Dose: 5 mg Documented by: KULDEEP Morphine Sulfate (Morphine) 2 mg IV Q5MIN PRN PRN Reason: Chest Pain Naloxone HCl (Narcan) 0.2 mg IV Q2MIN PRN PRN Reason: Opiate Reversal Nitroglycerin (Nitrostat) 0.4 mg SL [id number] PRN PRN Reason: Chest Pain Discontinued Medications Influenza Virus Vaccine (Flu Vaccine) 0.5 ml IM .ONCE ONE Stop: 05/21/20 09:01 Last Admin: 05/21/20 08:36 Dose: 0.5 ml Documented by: OLY Lisinopril (Zestril) 5 mg PO NOW ONE Stop: 05/20/20 17:31 Last Admin: 05/20/20 17:54 Dose: 5 mg Documented by: SARAH Morphine Sulfate (Morphine) 1 mg IV Q2HR PRN PRN Reason: Chest Pain Reevaluation(s) Reevaluation #1: Headache much better. Blood pressure improved 164 over 76. No chest pain. Time: 18:34 Consultations Consultation #1: Spoke with primary care oncology consultant, Dr. Posadas, will admit observation Time: 18:34 Vital Signs Vital signs: Vital Signs - 8 hr 05/20/20 16:06 05/20/20 16:57 05/20/20 17:00 Temperature 98.2 F Pulse Rate 78 63 74 Respiratory Rate 18 21 27 H Blood Pressure 204/91 H 191/93 H Pulse Oximetry 100 100 99 05/20/20 17:30 05/20/20 18:00 05/20/20 18:01 Temperature Pulse Rate 74 67 65 Respiratory Rate 26 H 22 22 Blood Pressure 195/93 H 164/76 H Pulse Oximetry 100 99 99 MDM - Chest Pain Differential Diagnosis Differential diagnosis: Likely other (Subarachnoid bleed/hypertensive urgency/atypical chest pain) Lab Data Attestation: I reviewed the patient's lab results. Result diagrams: 05/20/20 16:20 05/20/20 16:20 Labs: Lab Results 05/20/20 05/20/20 05/20/20 Range/Units 16:20 16:20 16:20 WBC 6.6 (4.5-11.0) X10^3/uL RBC 4.13 (4.0-5.2) X10^6/uL Hgb 13.4 (12.0-16.0) g/dL Hct 41.2 (36-46) % MCV 99.8 (80-100) fL MCH 32.4 (26-34) PG MCHC 32.5 (30-36) % RDW 13.4 (11.6-14.8) % Plt Count 291 (150-400) X10^3/uL Neut % (Auto) 62.3 (50-75) % Lymph % (Auto) 27.5 (25-40) % [place] % (Auto) 9.2 (3-14) % Eos % (Auto) 0.4 L (2-4) % Baso % (Auto) 0.6 (0-2) % Neut # (Auto) 4100 (7709-7733) /uL Lymph # (Auto) 1800 (1598-2424) /uL [place] # (Auto) 600 (0-900) /uL Eos # (Auto) 0 (0-450) /uL Baso # (Auto) 0 (0-100) /uL PT 11.7 (10.1-12.7) SECONDS INR 1.0 (0.9-1.3) APTT 31 (26.4-36.2) SECONDS Sodium 139 (137-145) mmol/L Potassium 3.6 (3.4-5.1) mmol/L Chloride 104 (98-107) mmol/L Carbon Dioxide 30 (22-32) mmol/L BUN 11 (7-17) mg/dL Creatinine 0.69 (0.52-1.04) mg/dL Estimated GFR > 60.0 (>60) mL/min BUN/Creatinine Ratio 15.9 (6-22) Glucose 87 (70-100) mg/dL Calcium 9.9 (8.4-10.2) mg/dL Total Bilirubin 0.9 (0.2-1.3) mg/dL AST 32 (14-36) IU/L ALT 20 (<35) IU/L Alkaline Phosphatase 55 (38-126) U/L Total Creatine Kinase 51 (30-135) U/L CK-MB (CK-2) TNP CK-MB (CK-2) Rel Index TNP Troponin I < 0.012 (0.01-0.034) ng/mL Total Protein 8.1 (6.3-8.2) g/dL Albumin 4.6 (3.5-5.0) g/dL Globulin 3.5 (1.7-4.1) g/dL Albumin/Globulin Ratio 1.3 (1.0-2.8) Lipase 88 (23-300) U/L Nasal Screen MRSA (PCR) (Negative) COVID-19 PCR (Negative) 05/20/20 05/20/20 Range/Units 17:43 20:30 WBC (4.5-11.0) X10^3/uL RBC (4.0-5.2) X10^6/uL Hgb (12.0-16.0) g/dL Hct (36-46) % MCV (80-100) fL MCH (26-34) PG MCHC (30-36) % RDW (11.6-14.8) % Plt Count (150-400) X10^3/uL Neut % (Auto) (50-75) % Lymph % (Auto) (25-40) % [place] % (Auto) (3-14) % Eos % (Auto) (2-4) % Baso % (Auto) (0-2) % Neut # (Auto) (8081-9308) /uL Lymph # (Auto) (9786-9040) /uL [place] # (Auto) (0-900) /uL Eos # (Auto) (0-450) /uL Baso # (Auto) (0-100) /uL PT (10.1-12.7) SECONDS INR (0.9-1.3) APTT (26.4-36.2) SECONDS Sodium (137-145) mmol/L Potassium (3.4-5.1) mmol/L Chloride (98-107) mmol/L Carbon Dioxide (22-32) mmol/L BUN (7-17) mg/dL Creatinine (0.52-1.04) mg/dL Estimated GFR (>60) mL/min BUN/Creatinine Ratio (6-22) Glucose (70-100) mg/dL Calcium (8.4-10.2) mg/dL Total Bilirubin (0.2-1.3) mg/dL AST (14-36) IU/L ALT (<35) IU/L Alkaline Phosphatase (38-126) U/L Total Creatine Kinase (30-135) U/L CK-MB (CK-2) CK-MB (CK-2) Rel Index Troponin I (0.01-0.034) ng/mL Total Protein (6.3-8.2) g/dL Albumin (3.5-5.0) g/dL Globulin (1.7-4.1) g/dL Albumin/Globulin Ratio (1.0-2.8) Lipase (23-300) U/L Nasal Screen MRSA (PCR) Negative for mrsa (Negative) COVID-19 PCR Negative (Negative) Imaging Data Chest x-ray: Radiologist's Impression: [address] [address] XRay Report Signed Patient: Lindsay Felix R#: [id number] : 1Acct:[id number] Age/Sex: 60 / FDate of Service: 05/20/20 Loc: ED Accession Number: [id number] Procedure: XR chest 1V Ordering Provider: Abisai Mota MD PROCEDURE: XR CHEST 1V INDICATIONS: chest pain TECHNIQUE: One view of the chest was acquired. COMPARISON: [facility], CHEST 2 VIEW, 12/03/2008, 11:00. FINDINGS: Surgical changes and devices: Cervical fixation hardware is partially visualized and appears intact. Lungs and pleura: Lungs are clear. No pleural effusions or pneumothorax. Mediastinum: Mediastinal contours appear normal. Heart size is normal. Bones and chest wall: No suspicious bony lesions. Overlying soft tissues appear unremarkable. IMPRESSION: No acute cardiopulmonary findings. Dictated by: Danielle Mcallister M.D. on 05/20/2020 at 17:28 Approved by: Danielle Mcallister M.D. on 05/20/2020 at 17:29 CT scan - head: Radiologist's Impression: [address] [address] [address] Scan Report Signed Patient: Lindsay Felix JMR#: [id number] : 1Acct:[id number] Age/Sex: 60 / FDate of Service: 05/20/20 Loc: ED Accession Number: [id number] Procedure: CT head/brain wo con Ordering Provider: Abisai Mota MD PROCEDURE: CT HEAD/BRAIN WO CON INDICATIONS: Left-sided headache TECHNIQUE: Noncontrast 4.5 mm thick angled axial sections acquired from the foramen magnum to the vertex, with coronal and sagittal reformats. For radiation dose reduction, the following was used: automated exposure control, adjustment of mA and/or kV according to patient size. COMPARISON: [facility], CT, CT HEAD/BRAIN WO CON, 11/30/2018, 16:32. FINDINGS: Image quality: Excellent. CSF spaces: Basal cisterns are patent. No extra-axial fluid collections. Ventricles are normal in size and shape. Brain: No midline shift. No intracranial masses or hemorrhage. Weber-white matter interface is normal. Skull and face: Calvarium and visualized facial bones are intact, without suspicious lesions. Sinuses: Visualized sinuses and mastoids are clear. IMPRESSION: No acute intracranial findings. Dictated by: Danielle Mcallister M.D. on 05/20/2020 at 18:08 Approved by: Danielle Mcallister M.D. on 05/20/2020 at 18:09 ECG Data Attestation: I personally reviewed and interpreted this ECG as follows: Interpretation: Normal sinus rhythm, no ST elevation or depression. Rate 73 MDM Narrative Medical decision making narrative: Appropriate for admission for hypertensive urgency. At this time atypical chest pain but patient states was here more for headache and elevated blood pressure Discharge Plan Departure Patient Disposition: Admitted as Observation Clinical Impression: Hypertensive urgency, Atypical chest pain Discharge Date/Time: 05/20/20 20:10 Referrals: Mariela Robles MD [Primary Care Provider] - Admit Date/Time: 05/20/20 20:48 Admit Provider: Juan David Posadas
[2020-05-20] MEDS: lisinopriL 5 MG TABLET PO ×2 (17:54→21:32)
[2020-05-20 18:09] LABS: COVID19 -Nasal RAPID Negative (Negative)
--- NOTE | 2020-05-20 19:13 | PM.HP.1 ---
History of Present Illness History of Present Illness Date Patient Seen: 05/20/20 Time Patient Seen: 19:13 Date of Onset of Symptoms: 05/15/20 Chief complaint: blood pressure issues, thinks TIA on monday Narrative: Hypertension Patient is seen in the ER today for hypertension and was admitted overnight for ?hypertensive urgency. Patient developed a severe left-sided frontal/occipital headache worse than ever. Associated with some paresthesias of. Apparently this could got better over the course the next several hours. She also had some its sensitivity the scalp that lasted for couple days. During this time she was noted to have a blood pressure of systolics of is 170-180. At this is measured at home. She has been nauseated all weekend a. Came to the emergency room today because of blood pressure and increased and she still felt poorly. She apparently she has had intermittent not elevated blood pressure in the past she has never been treated for hypertension in the past. Never the diagnosis of same. Only medical problem is been irritable bowel syndrome. Apparently saw Dr. seth in the clinic Monday for headache and was given a shot of Toradol a apparently but blood pressure was not recorded at the time as per patient. Patient came in here was evaluated blood pressure was markedly elevated. Was given 5 mg oral lisinopril and blood pressure is return to the approximately 160/80 heart rate in the 70s.. Nausea had resolved the headache had a pretty well resolved. Because of apparent persistence of hypertension and the concern is symptoms he is admitted overnight for observation. Patient had a head CT in the emergency that was normal all laboratory studies were normal. Patient History Medical History Chronic back pain (Chronic ~2003) Colitis (Chronic ~2000) Colon polyps (Chronic ~2000) Crohn's disease (Chronic ~2000) Hearing deficit (Chronic) Irritable bowel syndrome (Chronic ~2016) Menopause (Chronic) Ovarian cyst (Chronic) Scoliosis (Chronic) Skin cancer (Chronic ~2014) Surgical History Anesthesia (Resolved) Burn of arm (Resolved) History of cystoscopy (Resolved) History of neck surgery (Resolved ~2004) History of surgery (Resolved) History of surgery (Resolved ~03/2013) Status post hysterectomy (~2007) Status post laparoscopic cholecystectomy (~1979) Family & Social History Family History Father Age: 82 Hypertension Grandfather Stroke Grandmother Breast CA Mother Age: 79 Hypertension Obesity Grandmother Colon cancer Social History: household members spouse lives independently Yes caregiver/support person No Safety & Behavioral: Feels Safe in Current Yes Environment Been Physically Hurt or No Threatened By a Person Tobacco & Substance use: Smoking Status Former smoker alcohol intake current alcohol intake frequency 0-2 drinks per day Substance Use Type does not use Meds Home Medications and Allergies Home Medications Medication Instructions Recorded Confirmed Type linaclotide [Linzess] 145 mcg PO BID #60 cap 03/28/16 05/19/20 Rx azithromycin 250 mg tablet See Rx Instructions PO .COMPLEX #6 03/20/20 05/19/20 Rx tab alprazolam 1 mg tablet 1 mg PO QHS #90 tab 03/27/20 05/19/20 Rx estradiol 0.05 mg/24 hr semiweekly See Rx Instructions .ROUTE 05/11/20 05/19/20 Rx transdermal patch .COMPLEX #24 patch Allergies Allergy/AdvReac Type Severity Reaction Status Date / Time amoxicillin AdvReac Severe red Verified 05/19/20 08:49 peeling skin hands/ears Penicillins AdvReac Unknown Verified 05/19/20 08:49 Review of Systems Review of Systems ROS: Yes All systems reviewed with the patient and are negative except as otherwise documented Exam Vital Signs (past 8 hours): - 05/20/20 16:06 05/20/20 16:57 05/20/20 17:00 Temperature 98.2 F Pulse Rate 78 63 74 Respiratory Rate 18 21 27 H Blood Pressure 204/91 H 191/93 H Pulse Oximetry 100 100 99 05/20/20 17:30 05/20/20 18:00 05/20/20 18:01 Temperature Pulse Rate 74 67 65 Respiratory Rate 26 H 22 22 Blood Pressure 195/93 H 164/76 H Pulse Oximetry 100 99 99 05/20/20 18:30 05/20/20 19:00 Temperature Pulse Rate 68 67 Respiratory Rate 14 16 Blood Pressure 167/80 H 150/87 H Pulse Oximetry 98 99 Oxygen Delivery Method Room Air Narrative Exam Narrative: Gen.: [] Patient is examined in [facility] emergency room and she is resting quietly appears in no distress. Skin: [Warm well perfused. No prominent lesions. Nonicteric]. HEENT: PERRL., [normal EOM, external ears canals TMs normal, nasal mucosa normal and midline septum, oropharynx without lesions.] Neck: [Trachea midline. Thyroid nontender and not enlarged. Carotids without bruits. No lymphadenopathy] Back: [No obvious deformity or tenderness]. Chest: [Clear to P&A. Symmetric]. CV: [RRR no murmur or gallop. No JVD]. Abdomen: [No masses bruits tenderness or visceromegaly]. Neuro: [Cranial nerves II through XII grossly intact. Sensory and motor exams intact. Gait normal.] Mental status: [Intact for screening] Extremities: [No cyanosis clubbing or edema] Musculoskeletal: [No gross deformities] Lymphatics: [Negative for lymphadenopathy, supraclavicular axillary or inguinal] Neurologic exam cranial nerves 2-12 intact carotids 2+ no bruits neurologic otherwise symmetric Objective Labs Result Diagrams: 05/20/20 16:20 05/20/20 16:20 Labs: Laboratory Results - last 24 hr 05/20/20 05/20/20 05/20/20 16:20 16:20 16:20 WBC 6.6 RBC 4.13 Hgb 13.4 Hct 41.2 MCV 99.8 MCH 32.4 MCHC 32.5 RDW 13.4 Plt Count 291 Neut % (Auto) 62.3 Lymph % (Auto) 27.5 [place] % (Auto) 9.2 Eos % (Auto) 0.4 L Baso % (Auto) 0.6 Neut # (Auto) 4100 Lymph # (Auto) 1800 [place] # (Auto) 600 Eos # (Auto) 0 Baso # (Auto) 0 PT 11.7 INR 1.0 APTT 31 Sodium 139 Potassium 3.6 Chloride 104 Carbon Dioxide 30 BUN 11 Creatinine 0.69 Estimated GFR > 60.0 BUN/Creatinine Ratio 15.9 Glucose 87 Calcium 9.9 Total Bilirubin 0.9 AST 32 ALT 20 Alkaline Phosphatase 55 Total Creatine Kinase 51 CK-MB (CK-2) TNP CK-MB (CK-2) Rel Index TNP Troponin I < 0.012 Total Protein 8.1 Albumin 4.6 Globulin 3.5 Albumin/Globulin Ratio 1.3 Lipase 88 COVID-19 PCR 05/20/20 17:43 WBC RBC Hgb Hct MCV MCH MCHC RDW Plt Count Neut % (Auto) Lymph % (Auto) [place] % (Auto) Eos % (Auto) Baso % (Auto) Neut # (Auto) Lymph # (Auto) [place] # (Auto) Eos # (Auto) Baso # (Auto) PT INR APTT Sodium Potassium Chloride Carbon Dioxide BUN Creatinine Estimated GFR BUN/Creatinine Ratio Glucose Calcium Total Bilirubin AST ALT Alkaline Phosphatase Total Creatine Kinase CK-MB (CK-2) CK-MB (CK-2) Rel Index Troponin I Total Protein Albumin Globulin Albumin/Globulin Ratio Lipase COVID-19 PCR Negative Labs reviewed all of which is normal. Head CT was normal Assessment & Plan Assessment & Plan narrative: Patient with recent onset of hypertension that has been significant. She may well have had some symptoms related to the hypertension into the overnight observation for monitoring and for reassurance the blood pressure management has been successful. Anticipate the starting her on lisinopril 5 mg twice a day here in the hospital for observation and treatment. Overnight stay and then presumed be discharged tomorrow of follow-up with Dr. Robles
--- NOTE | 2020-05-20 19:13 | PC.NURSE ---
report to [place]
--- NOTE | 2020-05-20 22:16 | PC.NURSE ---
2210- Patient c/o mid sternal chest discomfort. Patient describes the discomfort as a pinching feeling 2/10. Placed on 2liters nasal cannula. Vitals are BP 163/84 heart rate 64, Respirations 10, patient is not diaphoretic, Call placed for stat EKG. Will monitor.
[2020-05-20 23:19] LABS: Creatine Kinase 44 U/L (30-135)
[2020-05-20 23:31] LABS: Troponin I < 0.012 ng/mL (0.01-0.034)
[2020-05-21 00:18] VITALS: BP 154/76; PULSE 71; RESP 23; TEMP 36.5; O2SAT 100
[2020-05-21 05:44] VITALS: BP 125/63; PULSE 88; RESP 23; TEMP 36.8; O2SAT 99
--- NOTE | 2020-05-21 07:37 | DI.ECHO.S_ITS ---
[facility]---------+ [facility] +---------+ : : [address] [place] : : : : [id number] : : : : Phone: [phone] Echocardiogram Report + + :Name: OSVALDO MCKEE Study Date: 05/21/2020 Height: 70 in : :[facility] Weight: 154 lb : : Gender: Female BSA: 1.9 m2 : :: 1960 Age: 60 yrs BP: 138/79 mmHg: :Reason For Study: HYPERTENSIVE EMERGENCY : :Ordering Physician: FELIX, : :JOVANA Performed By: Adelaida Chung : :Referring: JOVANA [place] : + + Interpretation Summary The ejection fraction is estimated to be 55-60%. Mild mid inferoseptal hypokinesis is suspected There is no significant valvular heart disease. Procedure: A two-dimensional transthoracic echocardiogram with color flow and Doppler was performed. The study quality was technically adequate. There is no prior echocardiogram noted for this patient. The patient was in sinus rhythm with heart rates between 59-78 bpm during the exam. Left Ventricle: The left ventricle is normal in size and wall thickness. The ejection fraction is estimated to be 55-60%. Mild mid inferoseptal hypokinesis is suspected. Diastolic parameters suggest a relaxation abnormality of the left ventricle, consistent with probable normal filling pressures. Right Ventricle: The right ventricle is normal in size and function. Atria: The left atrium is mildly dilated. Right atrial size is normal. Doppler evidence suggests a left to right interatrial shunt. A patent foramen ovale is present. Mitral Valve: The mitral valve is normal in structure and function. There is no mitral regurgitation. Aortic Valve: The aortic valve is trileaflet. The aortic valve opens well. There is no aortic valve stenosis. No aortic regurgitation is present. Tricuspid Valve: The tricuspid valve is normal in structure and function. Pulmonary artery pressures cannot be estimated because of the lack of a measurable TR jet velocity but the IVC suggests a CVP of around 3 mmHg. No tricuspid regurgitation. Pulmonic Valve: The pulmonic valve leaflets are thin and pliable; valve motion is normal. There is no pulmonic valvular regurgitation. Great Vessels: The aortic root is normal size. The dimensions of the ascending aorta are normal. The IVC is of normal diameter and collapses greater than 50% with a sniff. This suggests a low right atrial pressure of 3 mm Hg. Pericardium/ Pleura There is no pericardial effusion. There is no pleural effusion. MMode/2D Measurements & Calculations LVIDd: 4.5 cm LVOT diam: 2.1 cm LVIDs: 2.9 cm Ao root diam: 3.1 cm FS: 35.4 % asc Aorta Diam: 3.3 cm EPSS: 0.61 cm Ao Arch Diam (Prox Trans): 3.2 cm IVSd: 0.83 cm LVPWd: 0.93 cm LV hoang. diameter/BSA (cm/m^2): 2.4 LV sys. diameter/BSA (cm/m^2): 1.6 LA A2 area: 24.9 cm2 RA long axis: 4.8 cm LA A4 area: 15.6 cm2 RA area: 13.3 cm2 LA length (vol): 4.6 cm RA vol: 31.2 ml LA vol: 71.2 ml RA : 16.7 ml/m2 LA vol index: 38.1 ml/m2 IVC diam: 1.1 cm RVD1 (basal): 2.8 cm TAPSE: 2.0 cm Doppler Measurements & Calculations Ao V2 max: 102.0 cm/sec LVOT Max Jhony: 74.7 cm/sec Ao V2 mean: 78.5 cm/sec LV V1 max P.2 mmHg Ao max P.2 mmHg LV V1 VTI: 15.8 cm Ao mean P.6 mmHg IJEOMA(I,D): 2.3 cm2 Ao V2 VTI: 23.3 cm IJEOMA(V,D): 2.5 cm2 sev ratio: 0.68 IJEOMA indexed to BSA (cm^2/m^2): 1.2 MV E max jhony: 65.7 cm/sec PA V2 max: 64.4 cm/sec MV A max jhony: 78.7 cm/sec PA V2 mean: 43.9 cm/sec MV E/A: 0.83 PA mean P.87 mmHg Med Peak E' Jhony: 7.8 cm/sec PA pr(Accel): 24.2 mmHg E/E' med: 8.4 Lat Peak E' Jhony: 7.8 cm/sec E/E' lat: 8.5 E/e' average: 8.4 MV dec time: 0.15 sec SV(LVOT): 53.0 ml Reading Physician:04:35 PM
--- NOTE | 2020-05-21 07:38 | P.DS_ITS ---
History of Present Illness History of Present Illness Date Patient Seen: 05/21/20 Time Patient Seen: 07:15 Chief complaint: blood pressure issues, thinks TIA on monday Narrative: Patient is seen in the ER today for hypertension and was admitted overnight for ?hypertensive urgency. Patient developed a severe left-sided frontal/occipital headache worse than ever. Associated with some paresthesias of. Apparently this could got better over the course the next several hours. She also had some its sensitivity the scalp that lasted for couple days. During this time she was noted to have a blood pressure of systolics of is 170- 180. At this is measured at home. She has been nauseated all weekend a. Came to the emergency room today because of blood pressure and increased and she still felt poorly. She apparently she has had intermittent not elevated blood pressure in the past she has never been treated for hypertension in the past. Never the diagnosis of same. Only medical problem is been irritable bowel syndrome. Apparently saw Dr. seth in the clinic Monday for headache and was given a shot of Toradol a apparently but blood pressure was not recorded at the time as per patient. Patient came in here was evaluated blood pressure was markedly elevated. Was given 5 mg oral lisinopril and blood pressure is return to the approximately 160/80 heart rate in the 70s.. Nausea had resolved the headache had a pretty well resolved. Because of apparent persistence of hypertension and the concern is symptoms he is admitted overnight for observation. Patient had a head CT in the emergency that was normal all laboratory studies were normal. Discharge Providers Provider Date of admission: 05/20/20 20:48 Discharge Date: 05/21/20 Primary care physician: Mariela Robles MD Discharge provider: Mariela Robles MD Summary Hospital Course Discharge Diagnosis: Hypertensive urgency Atypical chest pain Hospital Course: The pt was admitted due to hypertensive urgency with atypical chest pain and headache. Her BP improved significantly after initiating PO Lisinopril 5mg. The day of discharge, the pt was normotensive. The pts labs were unrevealing, and EKG normal. Her headache and chest pain resolved. Echo was completed due to relatively sudden increase in BP, with results pending at the time of discharge. She will continue Lisinopril at home. She was instructed to keep a BP log at home, and will f/u in clinic in 2 weeks. Status at Discharge Cognitive/behavioral status at discharge: oriented Functional status at discharge: independent ambulation Overall status at discharge: patient is back to baseline Exam Vital Signs (past 8 hours): - 05/21/20 00:18 05/21/20 05:44 Temperature 97.7 F 98.3 F Pulse Rate 71 88 Respiratory Rate 23 23 Blood Pressure 154/76 H 125/63 Pulse Oximetry 100 99 Oxygen Delivery Method Room Air Oxygen Flow Rate 0 Narrative Exam Narrative: Gen: NAD, sitting comfortably in bed, appears well, speaking easily Neck: no JVD CV: RRR, no murmurs Resp: clear to auscultation bilaterally Abd: soft, nondistended, nontender, normoactive bowel sounds Ext: no edema Objective Labs Result Diagrams: 05/20/20 16:20 05/20/20 16:20 Labs: Laboratory Results - last 24 hr 05/20/20 05/20/20 05/20/20 16:20 16:20 16:20 WBC 6.6 RBC 4.13 Hgb 13.4 Hct 41.2 MCV 99.8 MCH 32.4 MCHC 32.5 RDW 13.4 Plt Count 291 Neut % (Auto) 62.3 Lymph % (Auto) 27.5 Hancock % (Auto) 9.2 Eos % (Auto) 0.4 L Baso % (Auto) 0.6 Neut # (Auto) 4100 Lymph # (Auto) 1800 Hancock # (Auto) 600 Eos # (Auto) 0 Baso # (Auto) 0 PT 11.7 INR 1.0 APTT 31 Sodium 139 Potassium 3.6 Chloride 104 Carbon Dioxide 30 BUN 11 Creatinine 0.69 Estimated GFR > 60.0 BUN/Creatinine Ratio 15.9 Glucose 87 Calcium 9.9 Total Bilirubin 0.9 AST 32 ALT 20 Alkaline Phosphatase 55 Total Creatine Kinase 51 CK-MB (CK-2) TNP CK-MB (CK-2) Rel Index TNP Troponin I < 0.012 Total Protein 8.1 Albumin 4.6 Globulin 3.5 Albumin/Globulin Ratio 1.3 Lipase 88 Nasal Screen MRSA (PCR) COVID-19 PCR 05/20/20 05/20/20 05/20/20 17:43 20:30 23:00 WBC RBC Hgb Hct MCV MCH MCHC RDW Plt Count Neut % (Auto) Lymph % (Auto) Hancock % (Auto) Eos % (Auto) Baso % (Auto) Neut # (Auto) Lymph # (Auto) Hancock # (Auto) Eos # (Auto) Baso # (Auto) PT INR APTT Sodium Potassium Chloride Carbon Dioxide BUN Creatinine Estimated GFR BUN/Creatinine Ratio Glucose Calcium Total Bilirubin AST ALT Alkaline Phosphatase Total Creatine Kinase 44 CK-MB (CK-2) TNP CK-MB (CK-2) Rel Index TNP Troponin I < 0.012 Total Protein Albumin Globulin Albumin/Globulin Ratio Lipase Nasal Screen MRSA (PCR) Negative for mrsa COVID-19 PCR Negative Discharge Plan Discharge Plan Discharge Problem: Hypertensive urgency, Atypical chest pain Patient Disposition: Home Discharge orders & Medications Prescriptions: New lisinopril 5 mg Tablet 5 mg PO BID Qty: 60 RF: 0 Continued alprazolam 1 mg tablet 1 mg PO QHS Qty: 90 RF: 0 Linzess 145 MCG capsule 145 mcg PO BID Qty: 60 RF: 3 estradiol 0.05 mg/24 hr patch semiweekly See Rx Instructions .ROUTE .COMPLEX Qty: 24 RF: 0 Follow up/Referrals: Mariela Robles MD [Primary Care Provider] - 2 Weeks Visit Report/Discharge Packet Instructions: Treatments for High Blood Pressure: More Than Just Taking a Pill, Malignant Hypertension, DI for Malignant Hypertension, Lisinopril Visit Report Forms: Patient Portal/API, Stroke Signs & Symptoms Discharge Data Primary Care Provider: Mariela Robles Attending Provider: Mariela Robles Admit Date/Time: 05/20/20 20:48
[2020-05-21 08:00] VITALS: BP 132/71; PULSE 71; RESP 16; TEMP 37.3; O2SAT 98
[2020-05-21 08:35] VITALS: BP 132/71; PULSE 75
[2020-05-21] MEDS: lisinopriL 5 MG TABLET PO (08:35)
[2020-05-21] MEDS: INFLUENZA VACCINE 0.5 ML SYRINGE IM (08:36)
[2020-05-21 12:00] VITALS: BP 135/73; PULSE 60; RESP 16; TEMP 37.2; O2SAT 100
[2020-05-21 15:10] VITALS: BP 138/79; PULSE 66; RESP 16; TEMP 37.4; O2SAT 99
--- NOTE | 2020-05-21 16:05 | CM.DANOTE ---
Discharge Planning/Care Management DCP: assessment: Case received and a d/c order noted but with pt still in the room. Went to meet with pt. In middle of ECHO. Discussion with RN caring for pt today confirms that all the d/c paperwork was in place but Dr. Robles/PCP wanted pt to have the ECHO prior to leaving. P: home today as above. Due to lateness of hour cannot stay to check in with pt. Payer: [facility] Admission status: OBS: confirmed by [facility] [place] Richter. CM Discharge Assessment Start: 05/21/20 16:04 Freq: Status: Active Protocol: Document 05/21/20 16:04 ITV (Rec: 05/21/20 16:05 ITV [id number]) Discharge Planning Assessment Advance Directives? No History Provided By Medical Record Prior Living Arrangements House Household Members spouse Independent with ADL's Yes Is patient alert and oriented? Yes
--- NOTE | 2020-05-21 18:47 | PC.NURSE ---
1845- Patient discharged to home. IV out discharge instruction given, all questions answered. Patient alert and oriented and stable at the time of discharge.
== END 2020-05-21 18:47 | disposition home or self-care (01) ==
LOC: ED 18:36 → AC 20:48 → ICU 20:56
PROVIDERS: Admitting Provider Family Medicine; Emergency Provider Emergency Medicine; Family Provider Obstetrics & Gynecology; PCP Family Medicine; Referring Provider Emergency Medicine; Visit Provider Family Medicine
DX: I16.0 Hypertensive urgency (principal); R07.9 Chest pain, unspecified; R51.9 Headache, unspecified; R11.0 Nausea; Z11.59 Encounter for screening for other viral diseases
CPT/HCPCS: 36415; 70450; 71045; 80053; 82550; 83690; 84484; 85025; 85610; 85730; 87635; 87797; 90471; 90656; 93005; 93306; 99217; 99219; 99284; G0378; Q2038

== ENCOUNTER → 2020-06-04 10:14 | Outpatient (CLI) | payer OTHER, SELFPAY ==
[2020-05-20 21:00] VITALS: BMI 22.1
[2020-06-04 11:09] LABS: Cholesterol 179 mg/dL (140-199); HDL Cholesterol 74 mg/dL (40-60); LDL Cholesterol Calculated 96 mg/dL (<100); Triglycerides 47 mg/dL (35-150)
== END ==
PROVIDERS: Family Provider Obstetrics & Gynecology; PCP Family Medicine; Referring Provider Family Medicine; Visit Provider Family Medicine
DX: I10 Essential (primary) hypertension (principal); Z13.6 Encounter for screening for cardiovascular disorders
CPT/HCPCS: 36415; 80061

== ENCOUNTER → 2020-06-22 11:53 | Outpatient (CLI) | payer OTHER, SELFPAY ==
[2020-05-20 21:00] VITALS: BMI 22.1
[2020-06-22 13:50] LABS: Add Manual Diff / Slide Review NO; Basophils Absolute Auto 0 /uL (0-100); Basophils Percent Auto 0.4 % (0-2); Eosinophils Absolute Auto 0 /uL (0-450); Eosinophils Percent Auto 0.4 % (2-4); Hematocrit 39.2 % (36-46); Hemoglobin 12.9 g/dL (12.0-16.0); Lymphocytes Absolute Auto 1500 /uL (1100-4500); Lymphocytes Percent Auto 28.6 % (25-40); Mean Corpuscular HGB Conc 32.9 % (30-36); Mean Corpuscular Hemoglobin 32.5 PG (26-34); Mean Corpuscular Volume 98.7 fL (80-100); Monocytes Absolute Auto 500 /uL (0-900); Monocytes Percent Auto 9.6 % (3-14); Neutrophils Absolute Auto 3100 /uL (1500-7000); Platelet Count 265 X10^3/uL (150-400); Red Blood Cell Count 3.97 X10^6/uL (4.0-5.2); Red Cell Distribution Width 13.2 % (11.6-14.8); White Blood Cell Count 5.1 X10^3/uL (4.5-11.0)
[2020-06-22 14:14] LABS: Erythrocyte Sedimentation Rate 6 MM/HR (0-20)
[2020-06-22 14:44] LABS: Alanine Aminotransferase 16 IU/L (<35)
[2020-06-22 14:56] LABS: C-Reactive Protein Quant < 0.5 mg/dL (<1.0)
== END ==
PROVIDERS: Family Provider Obstetrics & Gynecology; PCP Family Medicine; Referring Provider Internal Medicine Gastroenterology; Visit Provider Internal Medicine Gastroenterology
DX: R19.4 Change in bowel habit (principal); Z79.891 Long term (current) use of opiate analgesic
CPT/HCPCS: 36415; 84460; 85025; 85651; 86140

== ENCOUNTER → 2020-09-15 17:10 | Outpatient (CLI) | payer OTHER, SELFPAY ==
[2020-05-20 21:00] VITALS: BMI 22.1
--- NOTE | 2020-09-15 17:13 | DI.MG.S_ITS ---
BILATERAL DIGITAL SCREENING MAMMOGRAM 3D/2D WITH CAD: 09/15/2020 CLINICAL: Routine screening. Family history of breast cancer. Comparison is made to exams dated: 10/24/2018 mammogram and 06/01/2017 mammogram - [facility]. The tissue of both breasts is heterogeneously dense. This may lower the sensitivity of mammography. Current study was also evaluated with a Computer Aided Detection (CAD) system. No significant masses, calcifications, or other findings are seen in either breast. There has been no significant interval change. IMPRESSION: NEGATIVE There is no mammographic evidence of malignancy. A 1 year screening mammogram is recommended. This exam was interpreted at Station ID: [id number]. NOTE: For mammograms, a report in lay terms will be sent to the patient. Approximately 15% of breast malignancies will not be visualized mammographically. In the management of a palpable breast mass, a negative mammogram must not discourage biopsy of a clinically suspicious lesion. Electronically Signed By: Destin [email or web address]/edyta:09/16/2020 08:09:26 letter sent: Normal Exam ACR BI-RADS Category 1: Negative 3341F
== END ==
PROVIDERS: Family Provider Obstetrics & Gynecology; PCP Family Medicine; Referring Provider Obstetrics & Gynecology; Visit Provider Obstetrics & Gynecology
DX: Z12.31 Encounter for screening mammogram for malignant neoplasm of breast (principal); Z80.3 Family history of malignant neoplasm of breast
CPT/HCPCS: 77063; 77067

== ENCOUNTER → 2021-01-29 10:31 | Outpatient (CLI) | payer OTHER, SELFPAY ==
[2020-05-20 21:00] VITALS: BMI 22.1
[2021-01-29 12:17] LABS: Add Manual Diff / Slide Review NO; Basophils Absolute Auto 0 /uL (0-100); Basophils Percent Auto 0.8 % (0-2); Eosinophils Absolute Auto 0 /uL (0-450); Eosinophils Percent Auto 0.4 % (2-4); Hematocrit 38.4 % (36-46); Hemoglobin 12.7 g/dL (12.0-16.0); Lymphocytes Absolute Auto 1300 /uL (1100-4500); Lymphocytes Percent Auto 27.4 % (25-40); Mean Corpuscular Hemoglobin 32.8 PG (26-34); Mean Corpuscular Volume 99.4 fL (80-100); Monocytes Absolute Auto 500 /uL (0-900); Monocytes Percent Auto 10.2 % (3-14); Neutrophils Absolute Auto 2900 /uL (1500-7000); Neutrophils Percent Auto 61.2 % (50-75); Platelet Count 291 X10^3/uL (150-400); Red Blood Cell Count 3.87 X10^6/uL (4.0-5.2); Red Cell Distribution Width 13.1 % (11.6-14.8); White Blood Cell Count 4.7 X10^3/uL (4.5-11.0)
[2021-01-29 12:35] LABS: Alanine Aminotransferase 22 IU/L (<35); C-Reactive Protein Quant < 0.5 mg/dL (<1.0)
[2021-01-29 12:38] LABS: Erythrocyte Sedimentation Rate 7 MM/HR (0-20)
== END ==
PROVIDERS: Family Provider Obstetrics & Gynecology; PCP Family Medicine; Referring Provider Internal Medicine Gastroenterology; Visit Provider Internal Medicine Gastroenterology
DX: Z79.891 Long term (current) use of opiate analgesic (principal)
CPT/HCPCS: 36415; 84460; 85025; 85651; 86140

== ENCOUNTER → 2021-06-23 12:35 | Outpatient (CLI) | payer OTHER, SELFPAY ==
[2020-05-20 21:00] VITALS: BMI 22.1
--- NOTE | 2021-06-23 | DI.RAD.S_ITS ---
PROCEDURE: XR KUB INDICATIONS: KUB TECHNIQUE: One view of the abdomen acquired. COMPARISON: [facility], , KUB XRAY (1 VIEW ABDOMEN), 12/09/2014, 10:41. FINDINGS: Surgical changes and devices: Cholecystectomy clips are present. Bowel: Bowel gas pattern is normal. Soft tissues: No suspicious abdominal calcifications. Visualized solid organ contours appear normal in size. Bones: No suspicious bony lesions. IMPRESSION: No acute process. Dictated by: Senia Faria M.D. on 06/23/2021 at 13:58 Approved by: Senia Faria M.D. on 06/23/2021 at 13:58
== END ==
PROVIDERS: Family Provider Obstetrics & Gynecology; PCP Family Medicine; Referring Provider Internal Medicine Gastroenterology; Visit Provider Internal Medicine Gastroenterology
DX: R19.8 Other specified symptoms and signs involving the digestive system and abdomen (principal); K59.00 Constipation, unspecified
CPT/HCPCS: 74018

== ENCOUNTER → 2021-09-14 09:19 | Outpatient (CLI) | payer OTHER, SELFPAY ==
[2020-05-20 21:00] VITALS: BMI 22.1
--- NOTE | 2021-09-14 09:20 | DI.RAD.S_ITS ---
PROCEDURE: XR KNEE LT 3V INDICATIONS: swelling TECHNIQUE: 3 views of the knee were acquired. COMPARISON: [facility], , KNEE 3V RIGHT, 07/19/2016, 13:03. FINDINGS: Bones: No fractures or dislocations. No suspicious bony lesions. Contour irregularity of the medial and lateral femoral condyles. Tiny patellar osteophyte. Soft tissues: Small joint effusion. No suspicious soft tissue calcifications. IMPRESSION: Small joint effusion, mild degenerative change. No evidence acute bony abnormality of the left knee. If clinical suspicion and/or symptoms persist, further assessment with repeat plain films, or advanced imaging (e.g., CT, MRI, or bone scan) may be helpful for further assessment. Dictated by: Tan Cabral M.D. on 09/14/2021 at 11:39 Approved by: Tan Cabral M.D. on 09/14/2021 at 11:40
== END ==
PROVIDERS: Family Provider Obstetrics & Gynecology; PCP Family Medicine; Referring Provider Nurse Practitioner Family; Visit Provider Nurse Practitioner Family
DX: M25.462 Effusion, left knee (principal)
CPT/HCPCS: 73562

== ENCOUNTER → 2021-09-23 07:19 | Outpatient (CLI) | payer OTHER, SELFPAY ==
[2020-05-20 21:00] VITALS: BMI 22.1
--- NOTE | 2021-09-23 | DI.MRI.S_ITS ---
PROCEDURE: MR KNEE LT WO CON INDICATIONS: Unspecified internal derangement of left knee TECHNIQUE: Noncontrast sagittal PD fast spin echo and T2 fast spin echo with fat saturation, sagittal 3-D FLASH with fat saturation; coronal T1 spin echo and PD fast spin echo with fat saturation, and axial PD fast spin echo with fat saturation through the knee. COMPARISON: [facility], MR, KNEE WITHOUT CONTRAST, 07/25/2016, 12:50. FINDINGS: Image quality: Excellent. Menisci: The medial and lateral menisci demonstrate normal morphology and internal signal. The meniscal root ligaments appear intact. Cruciate ligaments: There is sprain/low-grade intrasubstance partial-thickness tear involving anterior cruciate ligament. No full-thickness ACL rupture. PCL is intact. Medial structures: Moderate grade MCL sprain/partial-thickness tear near its femoral insertion is seen. The posterior oblique ligament, semimembranosus tendon insertions, oblique popliteal ligament, and meniscocapsular junction appear intact. Visualized portions of the pes anserinus tendons appear normal. No abnormal bursal fluid. Lateral structures: The lateral collateral ligament, long and short heads of the biceps femoris tendon appear intact. The popliteus tendon appears normal; the popliteofibular ligament appears intact. The posterosuperior and anteroinferior popliteomeniscal fascicles appear intact. The arcuate and fabellofibular ligaments appear intact, on either side of the lateral inferior geniculate artery. Iliotibial band appears normal. Anterior structures: Nonspecific mild soft tissue edema and swelling along anterior aspect of patella tendon is seen. The quadriceps and patellar tendons appear intact. Patellar alignment is normal. No femoral trochlear dysplasia or ventral trochlear prominence. No edema in the infrapatellar fat pad. Bones and cartilage: Mild tricompartmental osteoarthritis and chondromalacia is seen more prominent in lateral femoral tibial compartment and lateral portion of patellofemoral compartment. Nonspecific subcortical cystic changes are noted involving base of tibial spine near ACL insertion. No marrow edema. No fracture or dislocation. Joint space: There is moderate amount of joint fluid. A popliteal cyst with internal septation is seen measures 2.3 x 2 x 4.9 cm in size. Normal appearing synovial plicae are incidentally noted. IMPRESSION: 1. Mild tricompartmental osteoarthritis and chondromalacia more prominent in lateral femoral tibial compartment and lateral portion of patellofemoral compartment. No fracture or dislocation. Moderate amount of joint fluid and a small popliteal cyst as above. 2. No evidence of focal meniscal tear. 3. Sprain/low-grade intrasubstance partial-thickness tear involving ACL. No full-thickness ACL rupture. PCL is intact. 4. Moderate grade MCL sprain/partial-thickness tear. 5. Nonspecific mild soft tissue edema along anterior aspect of patella tendon. Distal quadriceps tendon and patellar tendon are intact. Dictated by: Percy Parra M.D. on 09/23/2021 at 12:10 Approved by: Percy Parra M.D. on 09/23/2021 at 12:14
== END ==
PROVIDERS: Family Provider Obstetrics & Gynecology; PCP Family Medicine; Referring Provider Physician Assistant Medical; Visit Provider Physician Assistant Medical
DX: S83.512A Sprain of anterior cruciate ligament of left knee, initial encounter (principal); S83.412A Sprain of medial collateral ligament of left knee, initial encounter; M17.12 Unilateral primary osteoarthritis, left knee; M94.262 Chondromalacia, left knee; M71.22 Synovial cyst of popliteal space [Baker], left knee
CPT/HCPCS: 73721

== ENCOUNTER → 2021-10-11 16:59 | Outpatient (CLI) | payer OTHER, SELFPAY ==
[2020-05-20 21:00] VITALS: BMI 22.1
--- NOTE | 2021-10-11 | DI.MG.S_ITS ---
BILATERAL DIGITAL SCREENING MAMMOGRAM 3D/2D WITH CAD: 10/11/2021 CLINICAL: Routine screening. Family history of breast cancer. Comparison is made to exams dated: 09/15/2020 mammogram, 10/24/2018 mammogram, 06/01/2017 mammogram, and 05/25/2016 mammogram - [facility]. The tissue of both breasts is heterogeneously dense. This may lower the sensitivity of mammography. Current study was also evaluated with a Computer Aided Detection (CAD) system. No significant masses, calcifications, or other findings are seen in either breast. There has been no significant interval change. IMPRESSION: NEGATIVE There is no mammographic evidence of malignancy. A 1 year screening mammogram is recommended. This exam was interpreted at Station ID: [id number]. NOTE: For mammograms, a report in lay terms will be sent to the patient. Approximately 15% of breast malignancies will not be visualized mammographically. In the management of a palpable breast mass, a negative mammogram must not discourage biopsy of a clinically suspicious lesion. Electronically Signed By: Zenon jensen/edyta:10/12/2021 10:39:37 copy to: Diana Silveira letter sent: Normal Exam ACR BI-RADS Category 1: Negative 3341F
== END ==
PROVIDERS: Family Provider Obstetrics & Gynecology; PCP Family Medicine; Referring Provider Family Medicine; Visit Provider Family Medicine
DX: Z12.31 Encounter for screening mammogram for malignant neoplasm of breast (principal); Z80.3 Family history of malignant neoplasm of breast
CPT/HCPCS: 77063; 77067

== ENCOUNTER 2022-01-30 12:20 | Emergency (ER) | payer OTHER, SELFPAY ==
[2020-05-20 21:00] VITALS: BMI 22.1
[2022-01-30] VITALS (11 sets, daily range): BP systolic 116–190; BP diastolic 63–98; PULSE 68–85; RESP 12–25; TEMP 36.9; O2SAT 97–100; BMI 23.5
--- NOTE | 2022-01-30 13:43 | ED.GIBLEED ---
HPI - GI Bleed <SRIDHAR Shelton - Last Filed: 01/30/22 17:49> General Chief complaint: GI Bleed Stated complaint: bleeding from chrohns/heart fast x3 hours Time Seen by Provider: 01/30/22 12:51 History of Present Illness HPI Narrative: 61-year-old female, former smoker, presents to the emergency department with rectal bleeding since this morning. Patient has a history of Crohn's disease and has had similar symptoms approximately 1 year ago that required a blood transfusion. Patient states that her stomach was aching this morning and that she had dark red, foul-smelling blood in her stool 2+ times this morning. Patient denies any trauma to the area or ingesting any substances out of the ordinary in the last 24 hours. Patient did have a aesthetic infra red abdominal wrap treatment on Monday and was wondering if that damaged her surgical scar or intestines. Patient's is at bedside. Related Data Home Medications Medication Instructions Recorded Confirmed multivitamin 1 tab PO DAILY 08/13/20 02/09/22 linaclotide 145 mcg capsule 75 mcg PO .PRN 02/11/21 02/09/22 (Linzess) aspirin 81 mg tablet,delayed 81 mg PO DAILY 02/10/22 02/10/22 release Previous Rx's Medication Instructions Recorded nystatin 100,000 unit/mL oral 1 ml PO .COMPLEX #480 mL 01/12/21 suspension estradiol 0.05 mg/24 hr semiweekly See Rx Instructions .Route 07/05/21 transdermal patch (Lyllana) .COMPLEX #24 patches scopolamine base 1 mg over 3 days 1 patch transdermal Q72H #4 ea 11/15/21 transdermal patch alprazolam 1 mg tablet 1 mg PO TID anxiety #90 tabs 11/16/21 naproxen 500 mg tablet See Rx Instructions .Route 11/25/21 .COMPLEX #28 tabs losartan 25 mg tablet 25 mg PO DAILY #90 tabs 02/08/22 Allergies Allergy/AdvReac Type Severity Reaction Status Date / Time amoxicillin AdvReac Severe red Verified 02/09/22 16:16 peeling skin hands/ears Penicillins AdvReac Unknown Verified 02/09/22 16:16 Review of Systems <SRIDHAR Shelton - Last Filed: 01/30/22 17:49> Review of Systems Narrative: Narrative: GENERAL: Denies chills, fatigue, fever, sweats. See HPI HEENT: Denies sinus pain, ear pain, sore throat, difficulty swallowing, dizziness. RESPIRATORY: Denies dyspnea, cough, wheezing, sputum. CARDIOVASCULAR: Denies chest pain, palpitations, edema. GASTROINTESTINAL: Denies vomiting or constipation. Patient typically has diarrhea that is used to evacuate her bowels secondary to a kink in her colon. : Denies dysuria, frequency, incontinence, hematuria, urinary retention, flank pain. MSK: Denies weakness, joint pain, or bony pain. SKIN: Denies rash, skin lesions, or pruritis. NEUROLOGIC: Denies weakness, dizziness, headache, numbness, confusion. PSYCHIATRIC: No concerning psychosocial issues. Patient History <SRIDHAR Shelton - Last Filed: 01/30/22 17:49> Medical History Chronic back pain (~2003) Colitis (~2000) Colon polyps (~2000) Crohn's disease (~2000) Hearing deficit Irritable bowel syndrome (~2015) Knee pain, left Menopause Ovarian cyst Scoliosis Skin cancer (~2014) Surgical History Anesthesia Burn of arm History of cystoscopy History of neck surgery (~2004) History of surgery History of surgery (~03/2013) S/P colon resection Status post hysterectomy (~2007) Status post laparoscopic cholecystectomy (~1979) Family History Father Age: 83 Hypertension Grandfather Stroke Grandmother Breast CA Mother Age: 80 Hypertension Obesity Grandmother Colon cancer Social History marital status: household members: spouse lives independently: Yes caregiver/support person: No housing: house Smoking Status: Former smoker second hand exposure: No alcohol intake: current substance use type: does not use Smoking Status: Former smoker alcohol intake frequency: 0-2 drinks per day Substance Use Type: does not use Exam <SRIDHAR Shelton - Last Filed: 01/30/22 17:49> Narrative Exam Narrative: Exam Narrative: GENERAL: This is a well-nourished, well-developed patient, in mild distress HEAD: Atraumatic. Normocephalic. EYES: Pupils equal round and reactive. Extraocular motions intact. No scleral icterus, injection or drainage. ENT: Nose without bleeding, purulent drainage. Throat without erythema, tonsillar hypertrophy or exudate. Airway patent. NECK: Trachea midline. No JVD or lymphadenopathy. Nontender. CARDIOVASCULAR: Regular rate and rhythm without murmurs, peripheral pulses intact, cap refill <2 sec. RESPIRATORY: Breath sounds equal and clear bilaterally. No wheezes, rales, or rhonchi. No cough. No increased respiratory effort. No accessory muscle use. GASTROINTESTINAL: Abdomen soft, generalized tenderness, nondistended without guarding or rebound. No suprapubic pain. MSK: Moves all extremities. Normal range of motion, no clubbing or edema. Neurovascularly intact. NEURO: A&O x 3. SKIN: Warm, dry, no rashes or lesions noted. Initial Vital Signs Initial Vital Signs: Vital Signs Temperature 98.4 F 01/30/22 13:29 Pulse Rate 77 01/30/22 13:29 Respiratory Rate 16 01/30/22 13:29 Blood Pressure 190/98 H 01/30/22 13:29 Pulse Oximetry 97 01/30/22 13:29 Oxygen Delivery Method 01/30/22 13:29 Reviewed <Abisai Mota MD - Last Filed: 02/12/22 12:21> Initial Vital Signs Initial Vital Signs: Vital Signs Temperature 98.4 F 01/30/22 13:29 Pulse Rate 77 01/30/22 13:29 Respiratory Rate 16 01/30/22 13:29 Blood Pressure 190/98 H 01/30/22 13:29 Pulse Oximetry 97 01/30/22 13:29 Oxygen Delivery Method 01/30/22 13:29 Course <SRIDHAR Shelton - Last Filed: 01/30/22 17:49> Orders Ordered: Discontinued Medications Solumedro 125 mg/ Sodium (Chloride) 10 mls @ 0 mls/hr IV NOW ONE Stop: 01/30/22 16:00 Methylprednisolone (Methylprednisolone 125 Mg/2 Ml Vial) 125 mg IV NOW ONE Stop: 01/30/22 16:05 Last Admin: 01/30/22 16:20 Dose: 125 mg Documented By: ADDISON Ondansetron HCl (Ondansetron 4 Mg/2 Ml Inj) 4 mg IV NOW ONE Stop: 01/30/22 16:12 Last Admin: 01/30/22 16:19 Dose: 4 mg Documented By: ADDISON Vital Signs Vital signs: Vital Signs - 8 hr 01/30/22 13:29 01/30/22 13:54 01/30/22 13:55 Temperature 98.4 F Pulse Rate 77 83 81 Respiratory Rate 16 25 H 21 Blood Pressure 190/98 H Pulse Oximetry 97 100 100 Oxygen Delivery Method Room Air 01/30/22 13:55 01/30/22 14:00 01/30/22 14:00 Temperature Pulse Rate 80 Respiratory Rate 22 Blood Pressure 152/63 H 127/74 Pulse Oximetry 100 Oxygen Delivery Method 01/30/22 14:30 01/30/22 14:30 01/30/22 15:00 Temperature Pulse Rate 76 Respiratory Rate 22 Blood Pressure 116/73 156/77 H Pulse Oximetry 100 Oxygen Delivery Method 01/30/22 15:00 01/30/22 15:30 01/30/22 16:05 Temperature Pulse Rate 85 70 82 Respiratory Rate 23 12 Blood Pressure Pulse Oximetry 100 100 Oxygen Delivery Method 01/30/22 16:30 01/30/22 17:00 01/30/22 17:30 Temperature Pulse Rate 68 71 70 Respiratory Rate 17 Blood Pressure Pulse Oximetry 99 100 100 Oxygen Delivery Method <Abisai Mota MD - Last Filed: 02/12/22 12:21> Orders Ordered: Discontinued Medications Solumedro 125 mg/ Sodium (Chloride) 10 mls @ 0 mls/hr IV NOW ONE Stop: 01/30/22 16:00 Methylprednisolone (Methylprednisolone 125 Mg/2 Ml Vial) 125 mg IV NOW ONE Stop: 01/30/22 16:05 Last Admin: 01/30/22 16:20 Dose: 125 mg Documented By: ADDISON Ondansetron HCl (Ondansetron 4 Mg/2 Ml Inj) 4 mg IV NOW ONE Stop: 01/30/22 16:12 Last Admin: 01/30/22 16:19 Dose: 4 mg Documented By: ADDISON Vital Signs Vital signs: Vital Signs - 8 hr 01/30/22 13:29 01/30/22 13:54 01/30/22 13:55 Temperature 98.4 F Pulse Rate 77 83 81 Respiratory Rate 16 25 H 21 Blood Pressure 190/98 H Pulse Oximetry 97 100 100 Oxygen Delivery Method Room Air 01/30/22 13:55 01/30/22 14:00 01/30/22 14:00 Temperature Pulse Rate 80 Respiratory Rate 22 Blood Pressure 152/63 H 127/74 Pulse Oximetry 100 Oxygen Delivery Method 01/30/22 14:30 01/30/22 14:30 01/30/22 15:00 Temperature Pulse Rate 76 Respiratory Rate 22 Blood Pressure 116/73 156/77 H Pulse Oximetry 100 Oxygen Delivery Method 01/30/22 15:00 01/30/22 15:30 01/30/22 16:05 Temperature Pulse Rate 85 70 82 Respiratory Rate 23 12 Blood Pressure Pulse Oximetry 100 100 Oxygen Delivery Method 01/30/22 16:30 01/30/22 17:00 01/30/22 17:30 Temperature Pulse Rate 68 71 70 Respiratory Rate 17 Blood Pressure Pulse Oximetry 99 100 100 Oxygen Delivery Method MDM - GI Bleed <SRIDHAR Shelton - Last Filed: 01/30/22 17:49> Differential Diagnosis Differential diagnosis: Likely other (Crohn's flare) Lab Data Result diagrams: 01/30/22 12:58 01/30/22 12:58 Labs: Lab Results 01/30/22 01/30/22 01/30/22 Range/Units 12:58 12:58 12:58 WBC 5.7 (4.5-11.0) X10^3/uL RBC 3.32 L (4.0-5.2) X10^6/uL Hgb 11.1 L (12.0-16.0) g/dL Hct 32.5 L (36-46) % MCV 97.8 (80-100) fL MCH 33.5 (26-34) PG MCHC 34.2 (30-36) % RDW 12.8 (11.6-14.8) % Plt Count 268 (150-400) X10^3/uL Neut % (Auto) 69.6 (50-75) % Lymph % (Auto) 21.6 L (25-40) % Burnett % (Auto) 8.5 (3-14) % Eos % (Auto) 0.1 L (2-4) % Baso % (Auto) 0.2 (0-2) % Neut # (Auto) 4000 (5741-8461) /uL Lymph # (Auto) 1200 (7824-2876) /uL Burnett # (Auto) 500 (0-900) /uL Eos # (Auto) 0 (0-450) /uL Baso # (Auto) 0 (0-100) /uL PT 12.0 (10.1-12.7) SECONDS INR 1.1 (0.9-1.3) APTT 30 (26.4-36.2) SECONDS Sodium 136 L (137-145) mmol/L Potassium 4.6 (3.4-5.1) mmol/L Chloride 102 (98-107) mmol/L Carbon Dioxide 29 (22-32) mmol/L BUN 17 (7-17) mg/dL Creatinine 0.68 (0.52-1.04) mg/dL Estimated GFR > 60 (>60) mL/min BUN/Creatinine Ratio 25.0 H (6-22) Glucose 93 (80-110) mg/dL Calcium 9.2 (8.4-10.2) mg/dL Total Bilirubin 0.5 (0.2-1.3) mg/dL AST 31 (14-36) IU/L ALT 19 (<35) IU/L Alkaline Phosphatase 45 (38-126) U/L Total Protein 6.7 (6.3-8.2) g/dL Albumin 4.0 (3.5-5.0) g/dL Globulin 2.7 (1.7-4.1) g/dL Albumin/Globulin Ratio 1.5 (1.0-2.8) Blood Type Antibody Screen 01/30/22 Range/Units 12:58 WBC (4.5-11.0) X10^3/uL RBC (4.0-5.2) X10^6/uL Hgb (12.0-16.0) g/dL Hct (36-46) % MCV (80-100) fL MCH (26-34) PG MCHC (30-36) % RDW (11.6-14.8) % Plt Count (150-400) X10^3/uL Neut % (Auto) (50-75) % Lymph % (Auto) (25-40) % Burnett % (Auto) (3-14) % Eos % (Auto) (2-4) % Baso % (Auto) (0-2) % Neut # (Auto) (7669-8088) /uL Lymph # (Auto) (9050-4459) /uL Burnett # (Auto) (0-900) /uL Eos # (Auto) (0-450) /uL Baso # (Auto) (0-100) /uL PT (10.1-12.7) SECONDS INR (0.9-1.3) APTT (26.4-36.2) SECONDS Sodium (137-145) mmol/L Potassium (3.4-5.1) mmol/L Chloride (98-107) mmol/L Carbon Dioxide (22-32) mmol/L BUN (7-17) mg/dL Creatinine (0.52-1.04) mg/dL Estimated GFR (>60) mL/min BUN/Creatinine Ratio (6-22) Glucose (80-110) mg/dL Calcium (8.4-10.2) mg/dL Total Bilirubin (0.2-1.3) mg/dL AST (14-36) IU/L ALT (<35) IU/L Alkaline Phosphatase (38-126) U/L Total Protein (6.3-8.2) g/dL Albumin (3.5-5.0) g/dL Globulin (1.7-4.1) g/dL Albumin/Globulin Ratio (1.0-2.8) Blood Type A Positive Antibody Screen Negative Imaging Data CT scan - abdomen/pelvis: Radiologist's Impression: No acute CT findings in the abdomen and pelvis. Prior med colon resection with anastomosis and patulous terminal ileum without current inflammatory change. Signed by Maximus Cody MD on 01/30/2022 at 3:[address] [facility] Narrative Medical decision making narrative: 61-year-old female with history of Crohn's disease, presents to the emergency department with foul-smelling, bloody diarrhea 2+ times this morning. Patient had similar symptoms a year ago that required blood transfusions. Labs show a decrease in RBC, hgb, hct. CT scan reveals. Solu-Medrol 125 mg administered for comfort. We will discharge home with instructions to follow up with her GI doctor in the morning. Discussed return precautions and plan of care with patient and , who were agreeable with course of action. <Abisai Mota MD - Last Filed: 07/30/22 12:21> Lab Data Labs: Lab Results 01/30/22 01/30/22 01/30/22 Range/Units 12:58 12:58 12:58 WBC 5.7 (4.5-11.0) X10^3/uL RBC 3.32 L (4.0-5.2) X10^6/uL Hgb 11.1 L (12.0-16.0) g/dL Hct 32.5 L (36-46) % MCV 97.8 (80-100) fL MCH 33.5 (26-34) PG MCHC 34.2 (30-36) % RDW 12.8 (11.6-14.8) % Plt Count 268 (150-400) X10^3/uL Neut % (Auto) 69.6 (50-75) % Lymph % (Auto) 21.6 L (25-40) % Burnett % (Auto) 8.5 (3-14) % Eos % (Auto) 0.1 L (2-4) % Baso % (Auto) 0.2 (0-2) % Neut # (Auto) 4000 (1015-6738) /uL Lymph # (Auto) 1200 (7940-7889) /uL Burnett # (Auto) 500 (0-900) /uL Eos # (Auto) 0 (0-450) /uL Baso # (Auto) 0 (0-100) /uL PT 12.0 (10.1-12.7) SECONDS INR 1.1 (0.9-1.3) APTT 30 (26.4-36.2) SECONDS Sodium 136 L (137-145) mmol/L Potassium 4.6 (3.4-5.1) mmol/L Chloride 102 (98-107) mmol/L Carbon Dioxide 29 (22-32) mmol/L BUN 17 (7-17) mg/dL Creatinine 0.68 (0.52-1.04) mg/dL Estimated GFR > 60 (>60) mL/min BUN/Creatinine Ratio 25.0 H (6-22) Glucose 93 (80-110) mg/dL Calcium 9.2 (8.4-10.2) mg/dL Total Bilirubin 0.5 (0.2-1.3) mg/dL AST 31 (14-36) IU/L ALT 19 (<35) IU/L Alkaline Phosphatase 45 (38-126) U/L Total Protein 6.7 (6.3-8.2) g/dL Albumin 4.0 (3.5-5.0) g/dL Globulin 2.7 (1.7-4.1) g/dL Albumin/Globulin Ratio 1.5 (1.0-2.8) Blood Type Antibody Screen 01/30/22 Range/Units 12:58 WBC (4.5-11.0) X10^3/uL RBC (4.0-5.2) X10^6/uL Hgb (12.0-16.0) g/dL Hct (36-46) % MCV (80-100) fL MCH (26-34) PG MCHC (30-36) % RDW (11.6-14.8) % Plt Count (150-400) X10^3/uL Neut % (Auto) (50-75) % Lymph % (Auto) (25-40) % Burnett % (Auto) (3-14) % Eos % (Auto) (2-4) % Baso % (Auto) (0-2) % Neut # (Auto) (1709-6405) /uL Lymph # (Auto) (4626-8420) /uL Burnett # (Auto) (0-900) /uL Eos # (Auto) (0-450) /uL Baso # (Auto) (0-100) /uL PT (10.1-12.7) SECONDS INR (0.9-1.3) APTT (26.4-36.2) SECONDS Sodium (137-145) mmol/L Potassium (3.4-5.1) mmol/L Chloride (98-107) mmol/L Carbon Dioxide (22-32) mmol/L BUN (7-17) mg/dL Creatinine (0.52-1.04) mg/dL Estimated GFR (>60) mL/min BUN/Creatinine Ratio (6-22) Glucose (80-110) mg/dL Calcium (8.4-10.2) mg/dL Total Bilirubin (0.2-1.3) mg/dL AST (14-36) IU/L ALT (<35) IU/L Alkaline Phosphatase (38-126) U/L Total Protein (6.3-8.2) g/dL Albumin (3.5-5.0) g/dL Globulin (1.7-4.1) g/dL Albumin/Globulin Ratio (1.0-2.8) Blood Type A Positive Antibody Screen Negative Discharge Plan Departure Patient Disposition: Home Clinical Impression: Crohn's disease Qualifiers: Gastrointestinal tract location: unspecified location Digestive disease complication type: with rectal bleeding Qualified Code(s): K50.911 - Crohn's disease, unspecified, with rectal bleeding Instructions: Inflammatory Bowel Disease Activity Restrictions/Additional Instructions: *You have been diagnosed with flare of your Crohn's disease. Your labs show a mild decrease in your hemoglobin and hematocrit. Your vital signs are normal. Your CT scan was normal. Please follow-up with your GI doctor in the morning. If at any point symptoms become intolerable, feel free to return to the emergency department. *What to do: *Please continue to take your regular medications as directed. [ ] New medication prescriptions sent to your pharmacy: [ ] [ ] New medication written as a paper prescription [ x] No new medications given *Please follow up with your primary care provider in 2-3 days, call for an appointment. Let them know you were seen in the Emergency Department and that we ask that you be seen in follow up. We will electronically transmit a record of today's note if your PCP is in our system *If you do not have a primary care provider please contact the [facility] Resource line at [phone]. They will ask some questions about your medical history and help get you set up with a doctor in the community. ? Return to ER if you should have any new, worsening or concerning symptoms, such as worsening pain, severe headache, confusion, chest pain, difficulty breathing, fever greater than 101 F, shaking chills, persistent vomiting to the point that you cannot drink fluids, or other new or worsening symptoms. Prescriptions: No Action estradiol [Lyllana] 0.05 mg/24 hr patch semiweekly See Rx Instructions .ROUTE .COMPLEX Qty: 24 3RF Dose Instruction: APPLY 1 PATCH TO SKIN FOR 3 DAYS ALTERNATING WITH 1 PATCH FOR 4 DAYS EACH WEEK Rx Instructions: APPLY 1 PATCH TO SKIN FOR 3 DAYS ALTERNATING WITH 1 PATCH FOR 4 DAYS EACH WEEK scopolamine base 1 mg over 3 days patch 3 day 1 patch transdermal Q72H Qty: 4 1RF alprazolam 1 mg tablet 1 mg PO TID Qty: 90 0RF naproxen 500 mg tablet See Rx Instructions .ROUTE .COMPLEX Qty: 28 0RF Dose Instruction: TAKE 1 TABLET BY MOUTH TWICE DAILY WITH FOOD. STOP OTHER NSAIDS Rx Instructions: TAKE 1 TABLET BY MOUTH TWICE DAILY WITH FOOD. STOP OTHER NSAIDS losartan 25 mg tablet 25 mg PO DAILY Qty: 90 3RF Linzess 145 mcg capsule 75 mcg PO .PRN nystatin 100,000 unit/mL suspension 1 ml PO .COMPLEX Qty: 480 0RF Rx Instructions: swish and swallow 4-6 ml PO QID x 14 days aspirin 81 mg tablet,delayed release (DR/EC) 81 mg PO DAILY multivitamin Tablet 1 tab PO DAILY Referrals: Deejay Gann MD [Primary Care Provider] - Visit Report Forms: Patient Portal/API <Abisai Mota MD - Last Filed: 02/12/22 12:21> Cosign ED Attending Cosignature Attestation: I was immediately available in the department for consultation. This documentation has been reviewed and I agree with assessment and plan. Supervised by Abisai Mota MD
[2022-01-30 14:06] LABS: INR 1.1 (0.9-1.3)
[2022-01-30 14:09] LABS: PTT Partial Thromboplastin Tim 30 SECONDS (26.4-36.2)
[2022-01-30 14:10] LABS: Add Manual Diff / Slide Review NO; Basophils Absolute Auto 0 /uL (0-100); Basophils Percent Auto 0.2 % (0-2); Eosinophils Absolute Auto 0 /uL (0-450); Eosinophils Percent Auto 0.1 % (2-4); Hematocrit 32.5 % (36-46); Hemoglobin 11.1 g/dL (12.0-16.0); Lymphocytes Absolute Auto 1200 /uL (1100-4500); Lymphocytes Percent Auto 21.6 % (25-40); Mean Corpuscular HGB Conc 34.2 % (30-36); Mean Corpuscular Hemoglobin 33.5 PG (26-34); Mean Corpuscular Volume 97.8 fL (80-100); Monocytes Absolute Auto 500 /uL (0-900); Monocytes Percent Auto 8.5 % (3-14); Neutrophils Absolute Auto 4000 /uL (1500-7000); Neutrophils Percent Auto 69.6 % (50-75); Platelet Count 268 X10^3/uL (150-400); Red Blood Cell Count 3.32 X10^6/uL (4.0-5.2); Red Cell Distribution Width 12.8 % (11.6-14.8); White Blood Cell Count 5.7 X10^3/uL (4.5-11.0)
[2022-01-30 14:15] LABS: Alanine Aminotransferase 19 IU/L (<35); Albumin Globulin Ratio 1.5 (1.0-2.8); Alkaline Phosphatase 45 U/L (38-126); Aspartate Aminotransferase 31 IU/L (14-36); Bilirubin Total 0.5 mg/dL (0.2-1.3); Blood Urea Nitrogen 17 mg/dL (7-17); Calcium 9.2 mg/dL (8.4-10.2); Carbon Dioxide 29 mmol/L (22-32); Chloride 102 mmol/L (98-107); Estimated Glomerular Filt Rate > 60 mL/min (>60); Globulin 2.7 g/dL (1.7-4.1); Glucose 93 mg/dL (80-110); HEMOLYSIS < 15 (0-50); Potassium 4.6 mmol/L (3.4-5.1); Sodium 136 mmol/L (137-145); Total Protein 6.7 g/dL (6.3-8.2)
--- NOTE | 2022-01-30 15:06 | DI.CT.S_ITS ---
PROCEDURE: CT ABDOMEN PELVIS W CON INDICATIONS: abdomen pain/rectal bleeding/ Crohn's disease TECHNIQUE: After the administration of intravenous contrast, axial sections acquired from the lung bases to the pubic symphysis. Coronal and sagittal reformats were performed. For radiation dose reduction, the following was used: automated exposure control, adjustment of mA and/or kV according to patient size. COMPARISON: Merged With [facility], CT, ABDOMEN/PELVIS WITH CONTRAST, 10/28/2015, 7:52. FINDINGS: Lower thorax: The lung bases are clear. Heart size normal. No hiatal hernia. Liver: Normal in size and attenuation. No contour deformity present. Biliary system: Cholecystectomy. No intra or extrahepatic bile duct dilation. Pancreas: Unremarkable without mass or inflammation evident. Spleen: Normal in size and density. Adrenals: Normal morphology and density. Reproductive system: Unremarkable as visualized. Urinary system: Normal renal size and attenuation. No renal calculi, hydronephrosis, or solid mass present. Urinary bladder unremarkable. Gastrointestinal system: Mid segment transverse colon resection with anastomosis. Patulous the terminal ileum without evidence of active inflammation. No evidence of abscess. Appendix: No findings to suggest acute appendicitis. Peritoneal spaces: No mesenteric or retroperitoneal adenopathy. No free air. No free fluid. Vasculature: Aortic atherosclerotic vascular calcification noted without evidence of aneurysm. Abdominal wall: Abdominal wall intact without evidence of ventral or inguinal hernias. Musculoskeletal: Normal bone mineralization. Degenerative disc disease and arthropathy noted in lower lumbar spine. No acute fractures. IMPRESSION: 1. No acute CT findings in the abdomen and pelvis. 2. Prior mid colon resection with anastomosis and patulous terminal ileum without current inflammatory change. Approved by: Maximus Cody M.D. on 01/30/2022 at 15:15
[2022-01-30] MEDS: ONDANSETRON 4 MG/2 ML INJ IV (16:19)
[2022-01-30] MEDS: methylPREDNISolone 125 MG/2 ML VIAL IV (16:20)
== END 2022-01-30 18:10 | disposition home or self-care (01) ==
PROVIDERS: Emergency Provider Registered Nurse; Family Provider Obstetrics & Gynecology; PCP Family Medicine
DX: K50.90 Crohn's disease, unspecified, without complications (principal); R00.0 Tachycardia, unspecified
CPT/HCPCS: 36415; 74177; 80053; 85025; 85610; 85730; 86850; 86900; 86901; 93005; 93010; 96374; 96375; 99284; J2405; J2930; Q9967

== ENCOUNTER 2022-02-14 07:00 | Day surgery (SDC) | payer OTHER, SELFPAY ==
[2020-05-20 21:00] VITALS: BMI 22.1
--- NOTE | 2022-02-14 | PATH_ITS ---
[facility] Accession Number: [id number] . 01 Material submitted: . PART A: colon - RANDOM RIGHT COLON BIOPSIES PART B: colon - ASCENDING COLON EROSIONS PART C: colon - TRANSVERSE ANASTAMOSIS BIOPSIES PART D: colon - DESCENDING COLON BIOPSIES PART E: colon - SIGMOID COLON BIOPSIES PART F: rectum - RECTAL COLON BIOPSIES . 01 Diagnosis: A. Random Right Colon, Biopsies: Colonic mucosa with melanosis coli, but no other significant diagnostic alterations. Negative for active inflammation, granulomas, dysplasia, and malignancy. . B. Ascending Colon Erosions, Biopsy: Colonic mucosa with active inflammation, consistent with acute colitis, and melanosis coli. No granulomas, dysplasia, and malignancy. See comment. . C. Transverse Colon Anastomosis, Biopsies: Colonic mucosa with mild active inflammation, slight crypt architectural distortion, and melanosis coli. Negative for granulomas, dysplasia, and malignancy. See comment. . D. Descending Colon, Biopsies: Colonic mucosa with focal mild active inflammation, and melanosis coli. Negative for granulomas, dysplasia, and malignancy. . E. Sigmoid Colon, Biopsies: Colonic mucosa with melanosis coli, but no other significant diagnostic alterations. Negative for active inflammation, granulomas, dysplasia, and malignancy. . F. Rectum, Biopsies: Colonic mucosa with melanosis coli, but no other significant diagnostic alterations. Negative for active inflammation, granulomas, dysplasia, and malignancy. [facility] 02/15/2022 [facility] . 01 Comment: The differential diagnosis includes an acute self-limited process (infectious etiology, drug including NSAID's/toxin-induced, etc.). The presence of slight crypt architectural distortion also raised the additional possibility of inflammatory bowel disease. Correlation with clinical and endoscopic features is needed for further evaluation. . 01 Electronically signed: . Isabela Deshpande MD, Pathologist NPI- [id number] . 01 Gross description: . Part A: RANDOM RIGHT COLON BIOPSIES: Received in formalin are 3 fragment(s) of randhawa, soft tissue measuring 0.1 x 0.1 x 0.1 cm in aggregate submitted entirely in 1 cassette(s) Part B: ASCENDING COLON EROSIONS: Received in formalin are 2 fragment(s) of randhawa, soft tissue measuring 0.1 x 0.1 x 0.1 cm to 0.2 x 0.2 x 0.1 cm submitted entirely in 1 cassette(s) Part C: TRANSVERSE ANASTAMOSIS BIOPSIES: Received in formalin are 2 fragment(s) of randhawa, soft tissue measuring 0.1 x 0.1 x 0.1 cm to 0.2 x 0.2 x 0.1 cm submitted entirely in 1 cassette(s) Part D: DESCENDING COLON BIOPSIES: Received in formalin are 2 fragment(s) of randhawa, soft tissue measuring 0.1 x 0.1 x 0.1 cm in aggregate submitted entirely in 1 cassette(s) Part E: SIGMOID COLON BIOPSIES: Received in formalin are 2 fragment(s) of randhawa, soft tissue measuring 0.1 x 0.1 x 0.1 cm to 0.2 x 0.2 x 0.2 cm submitted entirely in 1 cassette(s) Part F: RECTAL COLON BIOPSIES: Received in formalin are 2 fragment(s) of randhawa, soft tissue measuring 0.1 x 0.1 x 0.1 cm in aggregate submitted entirely in 1 cassette(s) /ABEL 02/15/2022 0115 Local . 01 Pathologist provided ICD-10: K52.9, R19.7 . 01 CPT . 194713, 461120, 089789, 002222, 622093, 214187 Specimen Comment: A courtesy copy of this report has been sent to [phone] Performed at: 01 [facility] Cytology [address], [place], [place] [id number] MD Nicholas Chadwick MD Phone: [phone]
[2022-02-14] MEDS: SODIUM CHLORIDE 0.9% 1,000 ML 84 ML IV (07:10)
[2022-02-14 07:20] VITALS: BP 139/76; PULSE 66; RESP 18; TEMP 36.2; O2SAT 100; BMI 20.9
[2022-02-14 07:29] LABS: COVID19 -Nasal RAPID Negative (Negative)
--- NOTE | 2022-02-14 08:10 | P.HP_ITS ---
History of Present Illness History of Present Illness Date Patient Seen: 02/14/22 Time Patient Seen: 08:11 Chief complaint: SDC Narrative: I reviewed my notes and the recent visit with Dr Mckenna. No significant changes. Cannot have bm without Linzess. No more bleeding since ER visit. Patient History Medical History Chronic back pain (~2003) Colitis (~2000) Colon polyps (~2000) Crohn's disease (~2000) Hearing deficit Irritable bowel syndrome (~2015) Knee pain, left Menopause Ovarian cyst Scoliosis Skin cancer (~2014) Surgical History Anesthesia Burn of arm History of cystoscopy History of neck surgery (~2004) History of surgery History of surgery (~03/2013) S/P colon resection Status post hysterectomy (~2007) Status post laparoscopic cholecystectomy (~1979) Family & Social History Family History Father Age: 83 Hypertension Grandfather Stroke Grandmother Breast CA Mother Age: 80 Hypertension Obesity Grandmother Colon cancer Social History: household members spouse lives independently Yes caregiver/support person No Tobacco & Substance use: Smoking Status Former smoker alcohol intake current alcohol intake frequency 0-2 drinks per day Substance Use Type does not use Meds Home Medications and Allergies Home Medications Medication Instructions Recorded Confirmed Type multivitamin 1 tab PO DAILY 08/13/20 02/14/22 History linaclotide 145 mcg capsule 75 mcg PO .PRN 02/11/21 02/14/22 History (Linzess) estradiol 0.05 mg/24 hr semiweekly See Rx Instructions .Route 07/05/21 02/14/22 Rx transdermal patch (Lyllana) .COMPLEX #24 patches alprazolam 1 mg tablet 1 mg PO TID anxiety #90 tabs 11/16/21 02/14/22 Rx naproxen 500 mg tablet See Rx Instructions .Route 11/25/21 02/14/22 Rx .COMPLEX #28 tabs losartan 25 mg tablet 25 mg PO DAILY #90 tabs 02/08/22 02/14/22 Rx aspirin 81 mg tablet,delayed 81 mg PO DAILY 02/10/22 02/14/22 History release Allergies Allergy/AdvReac Type Severity Reaction Status Date / Time amoxicillin AdvReac Severe red Verified 02/14/22 07:28 peeling skin hands/ears Penicillins AdvReac Unknown Verified 02/14/22 07:28 Review of Systems Review of Systems ROS: Yes All systems reviewed with the patient and are negative except as otherwise documented Exam Vital Signs (past 8 hours): - 02/14/22 07:20 Temperature 97.2 F L Pulse Rate 66 Respiratory Rate 18 Blood Pressure 139/76 Pulse Oximetry 100 Oxygen Delivery Method Room Air Oxygen Delivery Method Room Air Const General: cooperative HENMT Head: normal to inspection Eyes General: appearance normal, both eyes and all related structures Neck Neck: normal visual inspection Chest Chest: normal inspection of the chest Resp Effort & Inspection: normal respiratory effort Cardio Rate: regular rate GI Inspection: normal to inspection Skin General: no rashes or lesions noted Neuro General: patient alert and patient awake Extrem General: normal to inspection and no pedal edema Psych Appearance: grossly normal Objective Labs Labs: Laboratory Results - last 24 hr 02/14/22 07:07 SARS-CoV-2 (PCR) Negative Assessment & Plan Assessment & Plan narrative: This is a 62-year-old female with Crohn's colitis status post segmental colectomy, personal history of colon polyps and a recent spell of bleeding. She has severe constipation. Updated colonoscopy is pursued today. Time Spent With Patient Critical Care time: I spent a total of [] minutes of critical care time on this patient's care today ; this time is exclusive of procedural time.
--- NOTE | 2022-02-14 08:13 | PM.PREOP ---
Pre-operative Note COVID-19 COVID-19 status: Negative Result date/Date tested (Pos, Neg/Pending): 02/14/22 Criteria for continued procedure: Possibility delay results in more complex future surgery or treatment Interval Note History & Physical reviewed/Exam performed by Physician: Yes Changes to H&P: No ASA Class (for procedural sedation): II
--- NOTE | 2022-02-14 08:43 | P.OP.COLON_ITS ---
Operative Date/Time/Diagnoses Date of procedure: 02/14/22 Time of procedure: 08:43 Pre-op diagnosis: History of Crohn's colitis status post segmental transverse colectomy, personal history of colon polyps, recent history of rectal bleeding Post-op diagnosis: same Procedure & Clinicians Study performed: Colonoscopy with biopsies Same procedure as scheduled: Yes Indications: History of Crohn's colitis status post segmental transverse colectomy, personal history of colon polyps, recent history of rectal bleeding Surgeon: Danielito Waldron Procedure Notes SCOAP/Timeout: Done Procedure in detail: After the risks and benefits were explained, written and verbal informed consent was obtained. The patient was brought into the procedure room and placed into the left lateral decubitus position. Please see nurse geospatial technologist notes for sedation details. Digital rectal examination was accomplished. The scope was introduced into the patient and advanced under direct visualization to the cecum as identified by the appendiceal orifice and ileocecal valve. The scope was slowly withdrawn to carefully examine the mucosa for any defects or lesions. Comprehensive imaging was accomplished throughout the rectum including the dentate line. The colon was decompressed, the scope was then removed from the patient who tolerated the procedure well. Bowel prep adequate Pediatric colonoscope Scope withdrawal time: 18 minutes Sedation minutes: 25 Complications: none Impression: Patient had diffuse melanosis coli. This was present from the rectum through to the cecum but started to become darker at about rectosigmoid junction. There was mild diverticulosis in the sigmoid. Patient had grade 2 internal nonbleeding nonthrombosed hemorrhoids. There were too numerous to count hypopigmented spots throughout the colon magnified by the presence of the melanosis coli. However I did not see any obvious significant discrete polyp throughout. The anastomosis in the transverse colon appeared to be a side to end anastomosis. This was widely patent but there was some mild scattered erosive and ulcerative features at this location. There were some scattered erosions in the ascending colon as well. The terminal ileum appeared visually normal. Biopsies were taken from the erosions in the ascending colon and then from the normal appearing ascending colon and submitted separately. A separate set was also taken from the eroded areas at the anastomosis. I then took segmental biopsies from the descending sigmoid and rectum and submitted these separately as well. Endoscopic diagnosis 1. Melanosis coli 2. Diverticulosis 3. Grade 2 hemorrhoids 4. Patent colo colonic anastomosis 5. Scattered right colon erosive and ulcerative features consistent with mild Crohn's Post-procedure Plan for aftercare: 1. Await histopathology 2. Continue Linzess. 3. Follow up GI clinic. Disposition: PACU
[2022-02-14 08:45] VITALS: BP 121/78; PULSE 62; RESP 18; TEMP 36.1; O2SAT 100
[2022-02-14 08:49] VITALS: BP 122/66; PULSE 70; RESP 16; O2SAT 100
[2022-02-14 08:55] VITALS: BP 125/74; PULSE 60; RESP 16; O2SAT 100
[2022-02-14 09:00] VITALS: BP 129/75; PULSE 60; RESP 16; TEMP 36.8; O2SAT 100
== END 2022-02-14 09:30 | disposition home or self-care (01) ==
PROVIDERS: Family Provider Obstetrics & Gynecology; PCP Family Medicine; Referring Provider Internal Medicine Gastroenterology; Visit Provider Internal Medicine Gastroenterology
PROC: 0DJD8ZZ Inspection of Lower Intestinal Tract, Via Natural or Artificial Opening Endoscopic (ICD-10-PCS; CPT 45378; principal; 2022-02-14 08:00)
DX: Z86.010 Personal history of colon polyps (principal); K52.9 Noninfective gastroenteritis and colitis, unspecified; K62.5 Hemorrhage of anus and rectum; Z90.49 Acquired absence of other specified parts of digestive tract; Z20.822 Contact with and (suspected) exposure to COVID-19; K63.89 Other specified diseases of intestine; K64.1 Second degree hemorrhoids; K57.30 Diverticulosis of large intestine without perforation or abscess without bleeding
CPT/HCPCS: 45380; 87635; C9803; J2704

== ENCOUNTER → 2022-02-25 16:59 | Outpatient (CLI) | payer OTHER, SELFPAY ==
[2020-05-20 21:00] VITALS: BMI 22.1
--- NOTE | 2022-02-25 | DI.MRI.S_ITS ---
PROCEDURE: MR LUMBAR SPINE WO CON INDICATIONS: Radiculopathy, lumbosacral region TECHNIQUE: Noncontrast sagittal T1 spin echo and T2 fast echo, sagittal STIR, and T2 fast spin echo through the lumbar spine. In cases with scoliosis, additional coronal T2 fast spin echo may be performed. COMPARISON: [facility], MR, L-SPINE WITHOUT CONTRAST, 10/03/2017, 13:32. [facility], MR, MR LUMBAR SPINE WO CON, 04/26/2019, 7:58. [facility] [place], CR, XR LUMBAR SPINE WITH OBLIQUES PLUS FLEXION EXTENSION, 02/15/2022, 14:06. [facility] [place], MR, MR LUMBAR SPINE WO CON, 04/28/2016, 15:36. FINDINGS: Image quality: Excellent. Alignment and Curvature: Mild levoconvex scoliotic curvature is noted. Bone Marrow: Marrow is of normal overall signal. No acute vertebral body compression fractures. Spinal Cord: Conus medullaris terminates at the L1 level. Visualized cord demonstrates normal signal and size. Paraspinous Soft Tissues: No paravertebral masses. T12-L1: Normal appearance. L1-L2: Normal appearance. L2-L3: Owdk-ro-[id number] loss of disc height and disc signal can be seen. At least moderate disc bulge is seen, which is eccentric to the right. Moderate facet joint hypertrophy is seen. Moderate bilateral neural foraminal narrowing can be seen, left worse than right. Moderate central canal narrowing is seen. No significant change from the prior. L3-L4: The disc height is well-preserved. Loss of disc signal is seen at this level. Moderate disc bulge is seen, which is eccentric to the left. Bridging endplate osteophytes are seen on the left, as on series 2, image 7. At least moderate facet hypertrophy is seen at this level. There is moderate right-sided and at least moderate left-sided neural foraminal narrowing. Moderate central canal narrowing is seen. These imaging findings have progressed compared to the prior study. L4-L5: Moderate loss of disc height is seen. Loss of disc signal is seen. At least moderate disc bulge is seen, which is eccentric to the left. Bridging endplate osteophytes are seen, as on series 2, image 5. At least moderate facet hypertrophy is seen at this level. There is at least moderate bilateral neural foraminal narrowing seen, left worse than right. There is a degree of compression seen upon the exiting nerve roots. Moderate central canal narrowing is seen. These degenerative changes are worse than in 2019. L5-S1: The disc height is well-preserved. Loss of disc signal is seen at this level. Reactive marrow endplate changes are seen which are hypointense on T1-weighted imaging and hyperintense on T2 weighted imaging, which is most consistent with edema (Modic type I changes). Moderate generalized disc bulge is seen. Moderate facet joint hypertrophy is seen. There is at least moderate left-sided and moderate to severe right-sided neural foraminal narrowing seen. There is a degree of compression seen upon the exiting nerve roots. Moderate central canal narrowing is seen. These imaging findings have progressed compared to the prior study. IMPRESSION: Multiple levels of lumbar spine degenerative change are seen, which are worst inferiorly and are progressed compared to 2019. Mild levoconvex scoliotic curvature is noted. Dictated by: Kyree Castro M.D. on 02/25/2022 at 17:24 Approved by: Kyree Castro M.D. on 02/25/2022 at 17:28
== END ==
PROVIDERS: Family Provider Family Medicine; PCP Family Medicine; Referring Provider Physical Medicine & Rehabilitation Pain Medicine; Visit Provider Physical Medicine & Rehabilitation Pain Medicine
DX: M47.26 Other spondylosis with radiculopathy, lumbar region (principal); M47.27 Other spondylosis with radiculopathy, lumbosacral region
CPT/HCPCS: 72148

== ENCOUNTER 2022-02-28 16:45 | Outpatient (RCR) | payer OTHER, SELFPAY ==
[2020-05-20 21:00] VITALS: BMI 22.1
--- NOTE | 2022-02-25 16:40 | PT.OIE ---
Current Diagnoses Benign paroxysmal vertigo, unspecified ear (02/25/22) Other peripheral vertigo, unspecified ear (02/25/22) Other abnormalities of gait and mobility (02/25/22) Dizziness and giddiness (02/25/22) Past Medical History (Last Reviewed 02/14/22 @ 08:11 by Danielito Waldron MD) Chronic back pain (~2003) Colitis (~2000) Colon polyps (~2000) Crohn's disease (~2000) Hearing deficit Irritable bowel syndrome (~2015) Knee pain, left Menopause Ovarian cyst Scoliosis Skin cancer (~2014) Past Surgical History (Last Reviewed 02/14/22 @ 08:12 by Danielito Waldron MD) Anesthesia Burn of arm History of cystoscopy History of neck surgery (~2004) History of surgery History of surgery (~03/2013) S/P colon resection Status post hysterectomy (~2007) Status post laparoscopic cholecystectomy (~1979) Visit Care Team Role Provider Type Deejay Gann MD Attending Provider Physician Family Provider Primary Care Provider Referring Provider Specialty: Family Practice Address: [address] [place] [address] Email: [email or web address] Physical Therapy Initial Evaluation PT-OP-A Visit Information Start: 02/25/22 15:10 Freq: Status: Active Protocol: Document 02/25/22 09:45 DCW (Rec: 02/25/22 15:11 DCW [id number]) Out-Patient Physical Therapy Visit Information Visit Information Visit Type Initial Evaluation Visit Start Time 09:45 Visit Stop Time 10:40 Total Visit Minutes 55 Visit Number 1 Number of DATA PROCESSING SYSTEMS CONSULTANT Visits 0 Evaluation Information Evaluation Date 02/25/22 PT-OP-B Current Condition Start: 02/25/22 15:10 Freq: Status: Active Protocol: Document 02/25/22 09:45 DCW (Rec: 02/25/22 16:22 DCW [id number]) Current Condition History of Current Condition Onset Date 02/24/22 Current Complaints Vertigo and imbalance History of Current Condition Pt is a 62 year old female complaining of a one day history of both spontaneous and motion-induced vertigo and imbalance. Pt reports episode began yesterday, she became very dizzy upon first rising from bed. She was very dizzy and nauseated with any positional changes, but otherwise felt okay. Pt phoned in to her PCP, and was told she likely had BPPV. Pt notes that she and her looked BPPV up online, discovered and performed something that sounds like a Lakisha-Hallpike maneuver, was fine lying back to the right, but reports she became so dizzy she was screaming when going to the left. Pt stopped attempting any positioning. Reports after getting out of bed today, everything is now worse, and she has a sustained imbalance at all times, and has not found a comfortable position. Requires hand-hold support from her at all times during ambulation. Pt has been nauseated all day, and has thrown up twice. Pt denies hx of hyperlipidemia, diabetes, head trauma, seizure , migraines, back/neck problems, or CVA. Treatment Goals Patient/Caregiver Goals Eliminate dizziness PT-OP-C Subjective Start: 02/25/22 15:10 Freq: Status: Active Protocol: Document 02/25/22 09:45 DCW (Rec: 02/25/22 15:15 DCW [id number]) OP-PT Subjective Patient Comments Patient Comments I've never experienced anything like this before. It was bad yesterday, and I didn' t know what was happening, but it is so much worse today. I' m afraid of falling. Patient Reported Progress Worse Patient Questionnaires ABC- Activity Specific Balance Confidence Scale ABC Score 3.13% ABC Functional Impairment 80 to <100% Impaired (Score 1- 20) Dizziness Handicap Inventory DHI Score 84% DHI Functional Impairment 80 to 99% Impaired (Score 80- 99) PT-OP-O Vestibular Start: 02/25/22 15:10 Freq: Status: Active Protocol: Document 02/25/22 09:45 DCW (Rec: 02/25/22 16:22 DCW [id number]) Vestibular Assessment Auditory Tests Preston Test Lateralizes right Rinne Test Negative Air Conduction Results Left Greater Visual Testing Smooth Pursuits Horizontal WNL Smooth Pursuits Vertical WNL Saccades Horizontal WNL Saccades Vertical WNL Gaze Evoked Nystagmus With Fixation Negative Gaze Evoked Nystagmus Without Fixation Negative Heave Test Positive Right Thrust Head Positive Right Head Shake Positive Spontaneous Nystagmus Negative Positional Testing Lakisha-Hallpike Negative Left,Negative Right Rolling Test Negative Left,Negative Right Vestibular Function Tests mCTSIB Position 1 30 seconds mCTSIB Position 2 Immediate retro fall reaction Comments Vestibular Comments Shake test resulted in R beating nystagmus for 5 seconds PT-OP-Q Treatments Start: 02/25/22 15:10 Freq: Status: Active Protocol: Document 02/25/22 09:45 DCW (Rec: 02/25/22 15:12 DCW [id number]) Canalithic Repositioning BPPV Treatment Baldomero Affected Canal(s) Left posterior? Comments Modified Baldomero PT-OP-T Assessment and Plan Start: 02/25/22 15:10 Freq: Status: Active Protocol: Document 02/25/22 09:45 DCW (Rec: 02/25/22 16:40 DCW [id number]) Physical Therapy Assessment Rehab Potential Rehabilitation Potential Fair Evaluation Complexity Number of Personal Factors/Comorbidities 1-2 Number of Body Systems Impaired 3 Clinical Presentation at Evaluation Unstable Impairments Impairments Balance,Functional Activities, Functional Mobility,Gait, Vestibular Goals Two Impairment Pt requires hand-hold assist with all ambulation Director Stars Goal (LTG) Pt to ambulate community distances independently without need of assistance to show improved independent functional mobility. LTG Duration 03/28/22 One Impairment Pt scores 84% disability on Dizziness Handicap Inventory Director Stars Goal (LTG) Pt DHI score to decrease to < 50% in order to demonstrate improved daily function secondary to decreased vertigo LTG Duration 03/28/22 Assessment Summary Assessment Pt presents to vestibular rehabilitation with a very confusing presentation that is suggestive of some potential peripheral vestibulopathy, however it is unclear at this time which it is. Pt's history from her first day of symptoms (02/24/22) is strongly suggestive of BPPV, and, per her reported reaction to lying back on her left, likely left sided. Unfortunately, however , her subjective complaints on the day of evaluation, as well as the results of her vestibular evaluation, showed no indication of BPPV. Today's complaints are now much more suggestive of acute unilateral hypofunction. There is a slight latency with her R thrust/head impulse test, a positive head shake test, right lateralization during the Preston test, and some indication of decreased right air conduction. This could all possibly be suggestive of R unilateral loss, with the decreased R air conduction potentially indicating labrynthitis, however in such an acute phase, one would expect to see gaze nystagmus, especially with fixation removed, and pt did not display any sign of this. A right-sided modified Baldomero was performed simply due to pt's complaints from the previous day, unfortunately this was met with minimal change either way. At this time, pt will hopefully benefit from further examination in a less acute phase, which may yield different results, and pt was scheduled for a follow-up next week. In the meantime, pt was instructed to got to the ED immediately with any change in symptoms, as well as to contact her PCP to ask about any pharmacological management of her dizziness or nausea if it became too difficult to handle. Physical Therapy Plan Frequency and Duration Frequency of Treatment 1-2x/week Duration of Treatment One month Plan of Care Start Date 02/25/22 Plan of Care End Date 03/28/22 Therapeutic Interventions Therapeutic Interventions Balance Training,Canalithic Repositioning,Manual Therapy, Patient/Caregiver Education, Self-Care/Home Management,Soft Tissue Mobilization, Therapeutic Activities, Therapeutic Exercises Next Visit Focus/Plan Next Note Type Treatment Note Next Visit Plan Further vestibular testing, CRM if indicated, vestibular rehabilitation if indicated.
--- NOTE | 2022-02-25 16:42 | PT.OPPOC ---
Physical, Occupational & Speech Therapy At [facility] Current Diagnoses Benign paroxysmal vertigo, unspecified ear (02/25/22) Other peripheral vertigo, unspecified ear (02/25/22) Other abnormalities of gait and mobility (02/25/22) Dizziness and giddiness (02/25/22) Visit Care Team Role Provider Type Deejay Gann MD Attending Provider Physician Family Provider Primary Care Provider Referring Provider Specialty: Family Practice Address: [address] [place] [address] Email: [email or web address] Plan Of Care PT-OP-T Assessment and Plan Start: 02/25/22 15:10 Freq: Status: Active Protocol: Document 02/25/22 09:45 DCW (Rec: 02/25/22 16:40 DCW [id number]) Physical Therapy Assessment Rehab Potential Rehabilitation Potential Fair Evaluation Complexity Number of Personal Factors/Comorbidities 1-2 Number of Body Systems Impaired 3 Clinical Presentation at Evaluation Unstable Impairments Impairments Balance,Functional Activities, Functional Mobility,Gait, Vestibular Goals Two Impairment Pt requires hand-hold assist with all ambulation Longterm Goal (LTG) Pt to ambulate community distances independently without need of assistance to show improved independent functional mobility. LTG Duration 03/28/22 One Impairment Pt scores 84% disability on Dizziness Handicap Inventory Sales Support Technician Goal (LTG) Pt DHI score to decrease to < 50% in order to demonstrate improved daily function secondary to decreased vertigo LTG Duration 03/28/22 Assessment Summary Assessment Pt presents to vestibular rehabilitation with a very confusing presentation that is suggestive of some potential peripheral vestibulopathy, however it is unclear at this time which it is. Pt's history from her first day of symptoms (02/24/22) is strongly suggestive of BPPV, and, per her reported reaction to lying back on her left, likely left sided. Unfortunately, however , her subjective complaints on the day of evaluation, as well as the results of her vestibular evaluation, showed no indication of BPPV. Today's complaints are now much more suggestive of acute unilateral hypofunction. There is a slight latency with her R thrust/head impulse test, a positive head shake test, right lateralization during the Preston test, and some indication of decreased right air conduction. This could all possibly be suggestive of R unilateral loss, with the decreased R air conduction potentially indicating labrynthitis, however in such an acute phase, one would expect to see gaze nystagmus, especially with fixation removed, and pt did not display any sign of this. A right-sided modified Baldomero was performed simply due to pt's complaints from the previous day, unfortunately this was met with minimal change either way. At this time, pt will hopefully benefit from further examination in a less acute phase, which may yield different results, and pt was scheduled for a follow-up next week. In the meantime, pt was instructed to got to the ED immediately with any change in symptoms, as well as to contact her PCP to ask about any pharmacological management of her dizziness or nausea if it became too difficult to handle. Physical Therapy Plan Frequency and Duration Frequency of Treatment 1-2x/week Duration of Treatment One month Plan of Care Start Date 02/25/22 Plan of Care End Date 03/28/22 Therapeutic Interventions Therapeutic Interventions Balance Training,Canalithic Repositioning,Manual Therapy, Patient/Caregiver Education, Self-Care/Home Management,Soft Tissue Mobilization, Therapeutic Activities, Therapeutic Exercises Next Visit Focus/Plan Next Note Type Treatment Note Next Visit Plan Further vestibular testing, CRM if indicated, vestibular rehabilitation if indicated. Plan of Care Dates Plan of Care Start Date 02/25/22 Plan of Care End Date 03/28/22 Electronically Signed by: Sandeep Moncada, PT 02/25/22 [id number] If you are in agreement with this Plan of Care, please return a signed and dated copy. I have reviewed this Plan of Care and certify that the skilled therapy services above are required to meet the patient?s needs. Physician Signature Date Printed Name and Credentials Clinical Instructor Signature Printed Name and Credentials
--- NOTE | 2022-02-28 17:28 | PT.OTN ---
Current Diagnoses Benign paroxysmal vertigo, unspecified ear (02/28/22) Other peripheral vertigo, unspecified ear (02/28/22) Other abnormalities of gait and mobility (02/28/22) Dizziness and giddiness (02/28/22) Physical Therapy Treatment Note PT-OP-A Visit Information Start: 02/25/22 15:10 Freq: Status: Active Protocol: Document 02/28/22 16:45 DCW (Rec: 02/28/22 17:28 DCW [id number]) Out-Patient Physical Therapy Visit Information Visit Information Visit Type Treatment Note Visit Start Time 16:45 Visit Stop Time 17:25 Total Visit Minutes 40 Visit Number 2 Number of RACECAR DRIVER Visits 0 Evaluation Information Evaluation Date 02/25/22 PT-OP-B Current Condition Start: 02/25/22 15:10 Freq: Status: Active Protocol: Document 02/25/22 09:45 DCW (Rec: 02/25/22 16:22 DCW [id number]) Current Condition History of Current Condition Onset Date 02/24/22 Current Complaints Vertigo and imbalance History of Current Condition Pt is a 62 year old female complaining of a one day history of both spontaneous and motion-induced vertigo and imbalance. Pt reports episode began yesterday, she became very dizzy upon first rising from bed. She was very dizzy and nauseated with any positional changes, but otherwise felt okay. Pt phoned in to her PCP, and was told she likely had BPPV. Pt notes that she and her looked BPPV up online, discovered and performed something that sounds like a Corn-Hallpike maneuver, was fine lying back to the right, but reports she became so dizzy she was screaming when going to the left. Pt stopped attempting any positioning. Reports after getting out of bed today, everything is now worse, and she has a sustained imbalance at all times, and has not found a comfortable position. Requires hand-hold support from her at all times during ambulation. Pt has been nauseated all day, and has thrown up twice. Pt denies hx of hyperlipidemia, diabetes, head trauma, seizure , migraines, back/neck problems, or CVA. Treatment Goals Patient/Caregiver Goals Eliminate dizziness PT-OP-C Subjective Start: 02/25/22 15:10 Freq: Status: Active Protocol: Document 02/28/22 16:45 DCW (Rec: 02/28/22 17:28 DCW [id number]) OP-PT Subjective Patient Comments Patient Comments Pt begain feeling better yesterday, performed what sounds to be BDE after speaking to her brother, who has suffered from vertigo previously, as well as sound therapy with headphones. Mornings still worse, still a little like a drunk after waking up. Was able to drive today. PT-OP-O Vestibular Start: 02/25/22 15:10 Freq: Status: Active Protocol: Document 02/28/22 16:45 DCW (Rec: 02/28/22 17:28 DCW [id number]) Vestibular Assessment Auditory Tests Air Conduction Results Left Greater Visual Testing Heave Test Positive Right Thrust Head Positive Right PT-OP-Q Treatments Start: 02/25/22 15:10 Freq: Status: Active Protocol: Document 02/28/22 16:45 DCW (Rec: 02/28/22 17:28 DCW [id number]) Manual Therapy Treatment Other Other Manual Treatments Positional testing, head impulse testing, tuning fork testing Neuro Re-Education Treatment Vestibular Rehabilitation Targets Details Eyes, then head X2 Viewing Details Head and target moving in opposite directions X1 Viewing Details Moving head, static target VOR Retraining Details Eyes and target together PT-OP-T Assessment and Plan Start: 02/25/22 15:10 Freq: Status: Active Protocol: Document 02/28/22 16:45 DCW (Rec: 02/28/22 17:28 [facility] [id number]) Physical Therapy Assessment Impairments Impairments Balance,Functional Activities, Functional Mobility,Gait, Vestibular Goals Two Impairment Pt requires hand-hold assist with all ambulation Broadcaster Goal (LTG) Pt to ambulate community distances independently without need of assistance to show improved independent functional mobility. LTG Duration Met One Impairment Pt scores 84% disability on Dizziness Handicap Inventory Group Home Goal (LTG) Pt DHI score to decrease to < 50% in order to demonstrate improved daily function secondary to decreased vertigo LTG Duration 03/28/22 Assessment Summary Assessment Pt feeling significantly better today, ambulating without imbalance or assistance. Testing today much more clearly suggestive of relatively mild labrynthitis, pt already doing very well with adaptation exercises, forcing herself to perform aggravating motions when walking around her home. Motivated to continue to perform vestibular HEP. Pt instructed to phone clinic for assessment with any return or change of symptoms. Physical Therapy Plan Frequency and Duration Frequency of Treatment 1-2x/week Duration of Treatment One month Plan of Care Start Date 02/25/22 Plan of Care End Date 03/28/22 Therapeutic Interventions Therapeutic Interventions Balance Training,Canalithic Repositioning,Manual Therapy, Patient/Caregiver Education, Self-Care/Home Management,Soft Tissue Mobilization, Therapeutic Activities, Therapeutic Exercises Next Visit Focus/Plan Next Note Type Treatment Note Next Visit Plan Further vestibular testing, CRM if indicated, vestibular rehabilitation if indicated.
--- NOTE | 2022-09-01 14:37 | PT.OPDS ---
Current Diagnoses Benign paroxysmal vertigo, unspecified ear (02/28/22) Other peripheral vertigo, unspecified ear (02/28/22) Other abnormalities of gait and mobility (02/28/22) Visit Care Team Role Provider Type Deejay Gann MD Attending Provider Physician Family Provider Primary Care Provider Referring Provider Specialty: Family Practice Address: [address] [place] [address] Email: [email or web address] Visit Number Visit Number 2 Discharge Summary PT-OP-B Current Condition Start: 02/25/22 15:10 Freq: Status: Active Protocol: Document 02/25/22 09:45 DCW (Rec: 02/25/22 16:22 DCW [id number]) Current Condition History of Current Condition Onset Date 02/24/22 Current Complaints Vertigo and imbalance History of Current Condition Pt is a 62 year old female complaining of a one day history of both spontaneous and motion-induced vertigo and imbalance. Pt reports episode began yesterday, she became very dizzy upon first rising from bed. She was very dizzy and nauseated with any positional changes, but otherwise felt okay. Pt phoned in to her PCP, and was told she likely had BPPV. Pt notes that she and her looked BPPV up online, discovered and performed something that sounds like a Lakisha-Hallpike maneuver, was fine lying back to the right, but reports she became so dizzy she was screaming when going to the left. Pt stopped attempting any positioning. Reports after getting out of bed today, everything is now worse, and she has a sustained imbalance at all times, and has not found a comfortable position. Requires hand-hold support from her at all times during ambulation. Pt has been nauseated all day, and has thrown up twice. Pt denies hx of hyperlipidemia, diabetes, head trauma, seizure , migraines, back/neck problems, or CVA. Treatment Goals Patient/Caregiver Goals Eliminate dizziness PT-OP-C Subjective Start: 02/25/22 15:10 Freq: Status: Active Protocol: Document 02/28/22 16:45 DCW (Rec: 02/28/22 17:28 DCW [id number]) OP-PT Subjective Patient Comments Patient Comments Pt begain feeling better yesterday, performed what sounds to be BDE after speaking to her brother, who has suffered from vertigo previously, as well as sound therapy with headphones. Mornings still worse, still a little like a drunk after waking up. Was able to drive today. PT-OP-O Vestibular Start: 02/25/22 15:10 Freq: Status: Active Protocol: Document 02/28/22 16:45 DCW (Rec: 02/28/22 17:28 DCW [id number]) Vestibular Assessment Auditory Tests Air Conduction Results Left Greater Visual Testing Heave Test Positive Right Thrust Head Positive Right PT-OP-T Assessment and Plan Start: 02/25/22 15:10 Freq: Status: Active Protocol: Document 09/01/22 14:34 DCW (Rec: 09/01/22 14:37 DCW [id number]) Physical Therapy Assessment Assessment Summary Assessment Pt had been instructed to phone clinic with any questions or change in symptoms following her last visit. Pt has not contacted therapist over last six months . Pt will be discharged from skilled therapy at this time, will require a new referral in order to return. Physical Therapy Plan Discharge Physical Therapy Discharge Reasons No Longer Attending PT
== END 2022-09-02 10:22 | disposition home or self-care (01) ==
LOC: PHYS 16:45
PROVIDERS: Family Provider Family Medicine; PCP Family Medicine; Referring Provider Family Medicine; Visit Provider Family Medicine
DX: H81.10 Benign paroxysmal vertigo, unspecified ear (principal); H81.399 Other peripheral vertigo, unspecified ear; R26.89 Other abnormalities of gait and mobility
CPT/HCPCS: 95992; 97112; 97140; 97162

== ENCOUNTER → 2022-04-08 08:02 | Outpatient (CLI) | payer OTHER, SELFPAY ==
[2020-05-20 21:00] VITALS: BMI 22.1
--- NOTE | 2022-04-08 | DI.ECHO.S_ITS ---
[facility] +---------+ : : [address] : : : : [id number] : : : : Phone: [phone]---------+ Echocardiogram Report + + :Name: OSVALDO MCKEE Study Date: 04/08/2022 Height: 70 in : :[facility] ReadingLocation: Weight: 146 lb : : Gender: Female BSA: 1.8 m2 : :: 1960 Age: 62 yrs BP: 146/97 mmHg: :Reason For Study: Atrial Septal Defect : :Ordering Physician: LUCINA, : :BRIGHT Performed By: Mitch Nunez : :Referring: BRIGHT LEWIS : + + Interpretation Summary The left ventricle is normal in size and wall thickness. Left ventricular systolic function is low normal. The ejection fraction is estimated to be 50- 55%. No obvious wall motion abnormalities are visualized. There has been no significant change since the previous exam. Diastolic parameters suggest probable normal left ventricular diastolic function and normal filling pressures. The right ventricle is normal in size and function. Pulmonary artery pressures cannot be estimated because of the lack of a measurable TR jet velocity. Both atria are normal in size. Injection of contrast with valsalva documented an interatrial shunt. There is no significant valvular heart disease. The aortic root is normal size. Procedure: A two-dimensional transthoracic echocardiogram with color flow and Doppler was performed. The study quality was technically adequate. Comparison is made with the echocardiogram of 05/21/2020. A saline contrast injection was performed to assess for cardiac shunting. The patient was in normal sinus rhythm during the exam. Left Ventricle: The left ventricle is normal in size and wall thickness. Left ventricular systolic function is low normal. The ejection fraction is estimated to be 50-55%. There has been no significant change since the previous exam. Diastolic parameters suggest probable normal left ventricular diastolic function and normal filling pressures. Right Ventricle: The right ventricle is normal in size and function. Atria: Both atria are normal in size. Injection of contrast with valsalva documented an interatrial shunt. Mitral Valve: The mitral valve is normal in structure and function. There is no mitral regurgitation noted. Aortic Valve: The aortic valve is normal in structure and function. No aortic regurgitation is present. Tricuspid Valve: The tricuspid valve is normal in structure and function. No tricuspid regurgitation. Pulmonary artery pressures cannot be estimated because of the lack of a measurable TR jet velocity. Pulmonic Valve: The pulmonic valve is not well seen, but is grossly normal. There is no pulmonic valvular regurgitation. There is no significant valvular heart disease. Great Vessels: The aortic root is normal size. The ascending aorta could not be visualized. The IVC is of normal diameter and collapses greater than 50% with a sniff. This suggests a low right atrial pressure of 3 mm Hg. Pericardium/ Pleura There is no pericardial effusion. There is no pleural effusion. MMode/2D Measurements & Calculations LVIDd: 4.6 cm LVOT diam: 2.3 cm LVIDs: 3.4 cm Ao root diam: 3.2 cm FS: 25.6 % IVSd: 0.88 cm LVPWd: 0.81 cm LV hoang. diameter/BSA (cm/m^2): 2.5 LV sys. diameter/BSA (cm/m^2): 1.9 LA A2 area: 16.2 cm2 RA long axis: 4.8 cm LA A4 area: 15.1 cm2 RA area: 10.6 cm2 LA length (vol): 4.6 cm RA vol: 19.9 ml LA vol: 45.2 ml RA : 10.9 ml/m2 LA vol index: 24.8 ml/m2 TAPSE: 2.0 cm Doppler Measurements & Calculations Ao V2 max: 102.3 cm/sec LVOT Max Jhony: 79.2 cm/sec Ao V2 mean: 75.0 cm/sec LV V1 max P.5 mmHg Ao max P.2 mmHg LV V1 VTI: 15.6 cm Ao mean P.4 mmHg IJEOMA(I,D): 3.1 cm2 Ao V2 VTI: 20.4 cm IJEOMA(V,D): 3.1 cm2 sev ratio: 0.76 IJEOMA indexed to BSA (cm^2/m^2): 1.7 MV E max jhony: 59.9 cm/sec SV(LVOT): 62.7 ml MV A max jhony: 61.7 cm/sec MV E/A: 0.97 Med Peak E' Jhony: 5.8 cm/sec E/E' med: 10.3 Lat Peak E' Jhony: 9.2 cm/sec E/E' lat: 6.5 E/e' average: 8.4 MV dec time: 0.21 sec Reading Physician:09:36 AM
--- NOTE | 2022-04-08 | DI.US.S_ITS ---
PROCEDURE: US ABD AORTA ANEURYSM SCREEN INDICATIONS: ATHEROSCLEROSIS TECHNIQUE: Real time scanning was performed of the aorta and iliac arteries, with image documentation. COMPARISON: None. FINDINGS: Aorta: Proximal aortic diameter measures 2.3 cm. Mid-aorta measures 2.2 cm. Distal aortic diameter is 2.1 cm. Iliac arteries: Right common iliac artery measures 1.1 cm. Left common iliac artery measures 1.1 cm. IMPRESSION: No aneurysmal dilatation or ectasia of the abdominal aorta or iliac arteries. Dictated by: Danielle Mcallister M.D. on 04/08/2022 at 15:54 Approved by: Danielle Mcallister M.D. on 04/08/2022 at 15:55
== END ==
PROVIDERS: Family Provider Family Medicine; PCP Family Medicine; Referring Provider Internal Medicine Cardiovascular Disease; Visit Provider Internal Medicine Cardiovascular Disease
DX: Q21.1 Atrial septal defect (principal); I42.8 Other cardiomyopathies; I70.0 Atherosclerosis of aorta
CPT/HCPCS: 76706; 93306

== ENCOUNTER → 2022-08-15 16:55 | Outpatient (CLI) | payer OTHER, SELFPAY ==
[2020-05-20 21:00] VITALS: BMI 22.1
[2022-08-15 17:34] LABS: Appearance Urine UA CLEAR; Bilirubin Urine UA NEGATIVE (NEGATIVE); Color Urine UA YELLOW; Glucose Urine UA NEGATIVE (Negative); Ketones Urine UA NEGATIVE (NEGATIVE); Leukocyte Esterase Urine UA NEGATIVE (NEGATIVE); Nitrite Urine UA NEGATIVE (Negative); Occult Blood Urine UA NEGATIVE (Negative); Protein Urine UA NEGATIVE (Negative); Specific Gravity Urine UA <=1.005 (1.000-1.035); Urobilinogen Urine UA 0.2 E.U./dL (0.2)
[2022-08-15 17:39] LABS: Add Manual Diff / Slide Review NO; Basophils Absolute Auto 0 /uL (0-100); Basophils Percent Auto 0.8 % (0-2); Eosinophils Absolute Auto 300 /uL (0-450); Eosinophils Percent Auto 4.8 % (2-4); Hemoglobin 12.9 g/dL (12.0-16.0); Lymphocytes Absolute Auto 1700 /uL (1100-4500); Lymphocytes Percent Auto 28.7 % (25-40); Mean Corpuscular HGB Conc 33.9 % (30-36); Mean Corpuscular Volume 97.2 fL (80-100); Monocytes Absolute Auto 500 /uL (0-900); Monocytes Percent Auto 8.3 % (3-14); Neutrophils Absolute Auto 3500 /uL (1500-7000); Neutrophils Percent Auto 57.4 % (50-75); Platelet Count 276 X10^3/uL (150-400); Red Blood Cell Count 3.91 X10^6/uL (4.0-5.2); Red Cell Distribution Width 12.7 % (11.6-14.8)
[2022-08-15 17:48] LABS: Alanine Aminotransferase 20 IU/L (<35); Albumin 4.4 g/dL (3.5-5.0); Albumin Globulin Ratio 1.3 (1.0-2.8); Alkaline Phosphatase 57 U/L (38-126); Aspartate Aminotransferase 32 IU/L (14-36); BUN Creatinine Ratio 20.8 (6-22); Bacteria Urine None Seen; Bilirubin Total 0.7 mg/dL (0.2-1.3); Blood Urea Nitrogen 16 mg/dL (7-17); Calcium 9.6 mg/dL (8.4-10.2); Carbon Dioxide 30 mmol/L (22-32); Chloride 99 mmol/L (98-107); Cholesterol 203 mg/dL (140-199); Culture Indicated Urine Cult Not Indicated; Estimated Glomerular Filt Rate > 60 mL/min (>60); Globulin 3.3 g/dL (1.7-4.1); Glucose 93 mg/dL (80-110); HDL Cholesterol 94 mg/dL (40-60); HEMOLYSIS < 15 (0-50); LDL Cholesterol Calculated 93 mg/dL (<100); RBC Urine None Seen (0-5/HPF); Sodium 135 mmol/L (137-145); Total Protein 7.7 g/dL (6.3-8.2); Triglycerides 82 mg/dL (35-150); WBC Urine None Seen (0-5/HPF)
[2022-08-15 18:18] LABS: TSH w/ Reflex to FT4 0.35 uIU/mL (0.47-4.68)
[2022-08-15 18:34] LABS: Vitamin B12 546 pg/mL (239-931)
[2022-08-15 19:02] LABS: Free T4, Direct Thyroxine 0.91 ng/dL (0.78-2.19)
== END ==
PROVIDERS: Family Provider Family Medicine; PCP Family Medicine; Referring Provider Family Medicine; Visit Provider Family Medicine
DX: E78.5 Hyperlipidemia, unspecified (principal); I10 Essential (primary) hypertension; K50.90 Crohn's disease, unspecified, without complications; R26.89 Other abnormalities of gait and mobility; R41.3 Other amnesia; R42 Dizziness and giddiness
CPT/HCPCS: 36415; 80053; 80061; 81001; 82607; 84439; 84443; 85025

== ENCOUNTER → 2022-08-17 10:44 | Outpatient (CLI) | payer OTHER, SELFPAY ==
[2020-05-20 21:00] VITALS: BMI 22.1
--- NOTE | 2022-08-17 10:44 | DI.MRI.S_ITS ---
BREAST MRI OF BOTH BREASTS: 08/17/2022 CLINICAL: Inconclusive Mammogram. PROCEDURE: MR BREAST BI WO/W CON INDICATIONS: Family HX of breast cancer, dense breast TECHNIQUE: The patient was placed prone in a dedicated breast imaging coil. Precontrast axial STIR and 3D FLASH without fat saturation sequences were obtained. Both before and after bolus injection of contrast, sequential 1-minute axial 3D FLASH with fat saturation sequences for 3 time points, with subtraction images and maximum intensity projections (MIP's) generated. Delayed sagittal FLASH images with fat saturation were also obtained. CONTRAST: 20 cc ProHance IV contrast. Computer-aided detection, including computer algorithm analysis of MRI image data for lesion detection and characterization, pharmacokinetic analysis, with further physician review for interpretation, was performed. COMPARISON: MG, MM SCREENING MAMMO BI, 09/15/2020, 17:27. MG, MM SCREENING MAMMO BI, 10/11/2021, 17:08. FINDINGS: Image quality: Excellent. There is mild background parenchymal enhancement. Right breast: No mass or suspicious enhancement. Left breast: No mass or suspicious enhancement. Miscellaneous: No enlarged lymph nodes. Susceptibility artifact from prior cholecystectomy clips. IMPRESSION: NEGATIVE No mass or suspicious enhancement. No enlarged lymph nodes. BIRADS 1. Return to screening mammogram is recommended. Last mammogram September 2021. COMMENT: The imaging literature indicates that a negative contrast breast MRI examination has a high sensitivity and a moderate specificity for detecting and excluding invasive carcinomas to a detection threshold of 3-5 mm; nonetheless, appropriate clinical and mammographic follow-up are recommended. MRI is not sensitive for detecting DCIS (ductal carcinoma in situ) and may not detect large invasive neoplasms that show only minimal enhancement such as mucinous carcinoma. If there are suspicious calcifications or clinically worrisome palpable masses, then biopsy should still be considered. Invasive neoplasms can be hidden by co-existent and benign enhancement caused by mastitis, hormone therapy effects, radiation therapy, , and recent biopsy or surgery. False positive examinations can occur in a number of circumstances, including breasts that have recently been subject to invasive procedures and those that contain atypical ductal hyperplasia, hormonally stimulated glandular tissue, fat necrosis, or radial scars. Dictated by: Zenon Davis M.D. on 08/17/2022 at 15:59 This exam was interpreted at Station ID: [id number]. Electronically Signed By: Zenon Davis M.D. slc/:08/17/2022 16:15:39 letter sent: Normal Exam ACR BI-RADS Category 1: Negative [id number]
== END ==
PROVIDERS: Family Provider Family Medicine; PCP Family Medicine; Referring Provider Obstetrics & Gynecology; Visit Provider Obstetrics & Gynecology
DX: R92.2 Inconclusive mammogram (principal); Z80.3 Family history of malignant neoplasm of breast
CPT/HCPCS: 77049; A9579

== ENCOUNTER → 2022-08-18 16:50 | Outpatient (CLI) | payer OTHER, SELFPAY ==
[2020-05-20 21:00] VITALS: BMI 22.1
--- NOTE | 2022-08-18 16:53 | DI.MRI.S_ITS ---
PROCEDURE: MR HEAD/BRAIN WO CON INDICATIONS: short-term memory loss TECHNIQUE: Non-contrast axial T1 spin echo, axial T2 fast spin echo, sagittal and axial FLAIR, coronal T2 fast spin echo, axial gradient echo, axial diffusion and ADC through the brain. COMPARISON: [facility], CT, CT HEAD/BRAIN WO CON, 05/20/2020, 17:40. FINDINGS: Image quality: There is artifact associated with the metallic orthodontic hardware. CSF spaces: Ventricles appear symmetric in size and shape. Basal cisterns are patent. No extra-axial fluid collections. Brain: No intracranial bleeds or mass effects. There is cerebral volume loss for age. There are periventricular and deep white matter chronic small vessel ischemic changes. Brainstem appears normal. Diffusion-weighted images show no acute ischemic insults. No chronic ischemic insults. Normal intravascular flow voids are present. Skull and face: Calvarial bone marrow is normal in signal. Orbits are overall not well seen. Sinuses: Sinuses and mastoids are clear. IMPRESSION: Highly limited study, without an imaging explanation found for the patient's presenting history. Dictated by: Kyree Castro M.D. on 08/18/2022 at 17:15 Approved by: Kyree Castro M.D. on 08/18/2022 at 17:16
== END ==
PROVIDERS: Family Provider Family Medicine; PCP Family Medicine; Referring Provider Family Medicine; Visit Provider Family Medicine
DX: R41.3 Other amnesia (principal); R42 Dizziness and giddiness; R26.89 Other abnormalities of gait and mobility
CPT/HCPCS: 70551

== ENCOUNTER 2022-10-07 12:48 | Inpatient (IN) | payer OTHER, SELFPAY ==
[2020-05-20 21:00] VITALS: BMI 22.1
[2022-10-07] VITALS (47 sets, daily range): BP systolic 135–168; BP diastolic 65–88; PULSE 71–108; RESP 14–34; TEMP 37.3; O2SAT 91–100; BMI 21.2
[2022-10-07] MEDS: EPINEPHrine 1 MG/ML 0.5 MG IM (13:06)
[2022-10-07] MEDS: DEXAMETHASONE 10 MG/ML VIAL IV ×2 (13:06→17:53)
--- NOTE | 2022-10-07 13:34 | ED_ITS ---
HPI - SOB/Dyspnea General Chief Complaint: Shortness of Breath/Dyspnea Stated Complaint: post jaw surgery, trouble breathing, can't swallow Time Seen by Provider: 10/07/22 13:00 History of Present Illness HPI Narrative: Patient is a 62-year-old female history of hypertension presents today after oral surgery. She was at [facility] where she had surgery she apparently had some bleeding from left facial vein that was easily controlled with pressure. She was discharged this morning from [facility] she reports that she had trouble sleeping secondary to difficulty breathing. She reports that her oxygen was okay and they were released. However on the drive she continue to have d ifficulty breathing and swallowing said that her voice sounded very muffled and was concerned and stopped at the hospital. She does have obvious swelling on the left side and a muffled voice. She reports that she was not able to drink anything prior to discharge. Related Data Home Medications Medication Instructions Recorded Confirmed multivitamin 1 tab PO DAILY 08/13/20 09/30/22 alprazolam 1 mg tablet 1 mg PO BEDTIME PRN anxiety 08/15/22 09/30/22 aspirin 81 mg tablet,delayed 325 mg PO DAILY 08/15/22 09/30/22 release linaclotide 72 mcg capsule 75 mcg PO DAILY PRN 08/15/22 09/30/22 (Linzess) ertapenem 1 gram intravenous 1 g IV DAILY 10/07/22 10/07/22 solution Previous Rx's Medication Instructions Recorded losartan 25 mg tablet 25 mg PO DAILY #90 tabs 02/08/22 scopolamine base 1 mg over 3 days 1 patch transdermal Q72H #1 ea 04/18/22 transdermal patch estradiol 0.05 mg/24 hr semiweekly See Rx Instructions .Route 07/12/22 transdermal patch .COMPLEX #24 patches CMP Testosterone Cream 2mg See Rx Instructions .Route 08/08/22 .COMPLEX #30 mg naproxen 500 mg tablet 500 mg PO BID #90 tabs 08/23/22 Allergies Allergy/AdvReac Type Severity Reaction Status Date / Time amoxicillin AdvReac Severe red Verified 10/07/22 13:01 peeling skin hands/ears Penicillins AdvReac Unknown Verified 10/07/22 13:01 Review of Systems Review of Systems ROS Unobtainable: All systems reviewed & are unremarkable except as noted in HPI and below Patient History Medical History Chronic back pain (~2003) Colitis (~2000) Colon polyps (~2000) Crohn's disease (~2000) Hearing deficit Irritable bowel syndrome (~2015) Knee pain, left Menopause Ovarian cyst Scoliosis Skin cancer (~2014) Surgical History Anesthesia Burn of arm History of cystoscopy History of neck surgery (~2004) History of surgery History of surgery (~03/2013) S/P colon resection Status post hysterectomy (~2007) Status post laparoscopic cholecystectomy (~1979) Family History Father Age: 84 Hypertension Grandfather Stroke Grandmother Breast CA Mother Age: 81 Hypertension Obesity Grandmother Colon cancer Social History marital status: household members: spouse lives independently: Yes caregiver/support person: No housing: house Smoking Status: Former smoker second hand exposure: No alcohol intake: current substance use type: does not use Smoking Status: Former smoker alcohol intake frequency: 0-2 drinks per day Substance Use Type: does not use Exam Initial Vital Signs Initial Vital Signs: Vital Signs Temperature 99.1 F 10/07/22 12:53 Pulse Rate 98 H 10/07/22 12:53 Respiratory Rate 16 10/07/22 12:53 Blood Pressure 160/80 H 10/07/22 12:53 Pulse Oximetry 100 10/07/22 12:53 Oxygen Delivery Method Room Air 10/07/22 12:53 GENERAL: Alert 62-year-old female and in no acute distress. HEENT: Head atraumatic,EOMI, pupils reactive, significant facial swelling more on left than right difficulty opening mouth secondary to swelling lips are quite swollen. She has a muffled voice do not see obvious tongue swelling can not see uvula difficulty managing secretions CARDIOVASCULAR: Regular rate and rhythm without murmurs, rubs or gallops. RESPIRATORY: Breath sounds equal bilaterally, no wheezes rales or rhonchi. ABDOMEN: Soft, nontender. Normoactive bowel sounds all 4 quadrants. No guarding or rebound. EXTREMITIES: Normal range of motion, no clubbing or edema. Neurovascularly intact NEUROLOGICAL: Alert and oriented x4. SKIN: Warm, dry, no laceration, no petechiae, no rashes or lesions. Course Orders Ordered: Dexamethasone (Dexamethasone 10 Mg/Ml Vial) 8 mg IV Q8HR JANIE Stop: 10/11/22 01:59 Last Admin: 10/08/22 06:15 Dose: 8 mg Documented By: Admin: 10/08/22 01:20 Dose: 8 mg Documented By: CAMERON Hydralazine HCl (Hydralazine 20 Mg/Ml Vial) 10 mg IV Q4HR PRN PRN Reason: Hypertension Last Admin: 10/08/22 03:50 Dose: 10 mg Documented By: CAMERON Hydromorphone HCl (Hydromorphone 0.5 Mg Inj) 0.5 mg IV Q4HR PRN PRN Reason: Pain, Severe (7-10) Last Admin: 10/08/22 00:11 Dose: 0.5 mg Documented By: CAMERON Dextrose/Sodium Chloride (Dextrose 5%-0.9% Ns) 1,000 mls @ 100 mls/hr IV CONT JANIE Last Admin: 10/07/22 22:20 Dose: 100 mls/hr Documented By: CAMERON Ketorolac Tromethamine (Ketorolac 30 Mg/Ml Vial) 30 mg IV PRN PRN PRN Reason: Fever/Mild Pain (1-3) Last Admin: 10/08/22 06:15 Dose: 30 mg Documented By: Admin: 10/07/22 22:21 Dose: 30 mg Documented By: CAMERON Lorazepam (Lorazepam 2 Mg/Ml Inj) 0.5 mg IV Q4HR PRN PRN Reason: Anxiety Last Admin: 10/08/22 01:50 Dose: 0.5 mg Documented By: CAMERON Naloxone HCl (Naloxone 0.4 Mg/Ml Vial) 0.2 mg IV Q2MIN PRN PRN Reason: Opiate Reversal Ondansetron HCl (Ondansetron 4 Mg/2 Ml Inj) 4 mg IV Q4HR PRN PRN Reason: Nausea And Vomiting Pantoprazole Sodium (Pantoprazole 40 Mg Vial) 40 mg IV DAILY [facility] Discontinued Medications Dexamethasone (Dexamethasone 10 Mg/Ml Vial) 10 mg IV NOW ONE Stop: 10/07/22 13:01 Last Admin: 10/07/22 13:06 Dose: 10 mg Documented By: GABRIELLA Dexamethasone (Dexamethasone 10 Mg/Ml Vial) 10 mg IV NOW ONE Stop: 10/07/22 17:43 Last Admin: 10/07/22 17:53 Dose: 10 mg Documented By: ANUP Epinephrine HCl (Epinephrine 1 Mg/Ml) 0.5 mg IM NOW ONE Stop: 10/07/22 13:01 Last Admin: 10/07/22 13:06 Dose: 0.5 mg Documented By: GABRIELLA Hydromorphone HCl (Hydromorphone 0.5 Mg Inj) 0.5 mg IV NOW ONE Stop: 10/07/22 18:19 Last Admin: 10/07/22 18:23 Dose: 0.5 mg Documented By: ANUP Sodium Chloride (Normal Saline 0.9%) 1,000 mls @ 1,000 mls/hr IV BOLUS ONE Stop: 10/07/22 14:24 Last Infusion: 10/07/22 15:03 Dose: 0 mls/hr Documented By: Admin: 10/07/22 13:47 Dose: 1,000 mls/hr Documented By: ANUP Morphine Sulfate (Morphine 2 Mg/Ml Inj) 2 mg IV NOW ONE Stop: 10/07/22 16:18 Last Admin: 10/07/22 16:21 Dose: 2 mg Documented By: ANUP Vital Signs Vital signs: Vital Signs - 8 hr 10/07/22 12:53 10/07/22 13:28 10/07/22 13:29 Temperature 99.1 F Pulse Rate 98 H 95 H Respiratory Rate 16 Blood Pressure 160/80 H 164/77 H Pulse Oximetry 100 98 Oxygen Delivery Method Room Air 10/07/22 13:29 10/07/22 13:30 10/07/22 13:30 Temperature Pulse Rate 84 90 Respiratory Rate 22 Blood Pressure 159/81 H Pulse Oximetry 99 100 Oxygen Delivery Method Room Air 10/07/22 13:45 10/07/22 13:45 10/07/22 14:00 Temperature Pulse Rate 91 H Respiratory Rate Blood Pressure 135/77 137/65 Pulse Oximetry 98 Oxygen Delivery Method 10/07/22 14:00 10/07/22 14:15 10/07/22 14:15 Temperature Pulse Rate 82 81 Respiratory Rate Blood Pressure 140/66 Pulse Oximetry 98 98 Oxygen Delivery Method 10/07/22 14:30 10/07/22 14:30 10/07/22 14:45 Temperature Pulse Rate 89 Respiratory Rate Blood Pressure 157/75 H 150/73 H Pulse Oximetry 100 Oxygen Delivery Method 10/07/22 14:45 10/07/22 15:00 10/07/22 15:00 Temperature Pulse Rate 93 H 81 Respiratory Rate Blood Pressure 145/75 H Pulse Oximetry 100 100 Oxygen Delivery Method 10/07/22 15:15 10/07/22 15:15 10/07/22 15:30 Temperature Pulse Rate 76 Respiratory Rate Blood Pressure 149/74 H 144/65 H Pulse Oximetry 98 Oxygen Delivery Method 10/07/22 15:30 10/07/22 15:45 10/07/22 15:45 Temperature Pulse Rate 90 78 Respiratory Rate Blood Pressure 135/65 Pulse Oximetry 99 99 Oxygen Delivery Method 10/07/22 16:00 10/07/22 16:00 10/07/22 16:13 Temperature Pulse Rate 80 83 Respiratory Rate Blood Pressure 143/69 H Pulse Oximetry 97 100 Oxygen Delivery Method 10/07/22 16:15 10/07/22 16:39 10/07/22 16:41 Temperature Pulse Rate 94 H Respiratory Rate Blood Pressure 157/76 H 148/71 H Pulse Oximetry 93 Oxygen Delivery Method 10/07/22 16:41 10/07/22 16:49 10/07/22 17:00 Temperature Pulse Rate 94 H 90 81 Respiratory Rate Blood Pressure Pulse Oximetry 99 97 96 Oxygen Delivery Method 10/07/22 17:01 10/07/22 17:01 Temperature Pulse Rate 88 Respiratory Rate Blood Pressure 157/77 H Pulse Oximetry 97 Oxygen Delivery Method MDM - SOB/Dyspnea Lab Data 10/08/22 04:17 10/08/22 04:17 Labs: Lab Results 10/07/22 10/07/22 10/07/22 Range/Units 13:01 13:01 17:08 WBC 13.9 H (4.5-11.0) X10^3/uL RBC 3.36 L (4.0-5.2) X10^6/uL Hgb 11.0 L (12.0-16.0) g/dL Hct 33.0 L (36-46) % MCV 98.1 (80-100) fL MCH 32.6 (26-34) PG MCHC 33.2 (30-36) % RDW 13.0 (11.6-14.8) % Plt Count 278 (150-400) X10^3/uL Neut % (Auto) 78.7 H (50-75) % Lymph % (Auto) 13.2 L (25-40) % Ashley % (Auto) 7.5 (3-14) % Eos % (Auto) 0.0 L (2-4) % Baso % (Auto) 0.6 (0-2) % Neut # (Auto) 46489 H (6477-1871) /uL Lymph # (Auto) 1800 (8230-6557) /uL Ashley # (Auto) 1000 H (0-900) /uL Eos # (Auto) 0 (0-450) /uL Baso # (Auto) 100 (0-100) /uL Sodium 134 L (137-145) mmol/L Potassium 4.0 (3.4-5.1) mmol/L Chloride 101 (98-107) mmol/L Carbon Dioxide 29 (22-32) mmol/L BUN 12 (7-17) mg/dL Creatinine 0.65 (0.52-1.04) mg/dL Estimated GFR > 60 (>60) mL/min BUN/Creatinine Ratio 18.5 (6-22) Glucose 104 (80-110) mg/dL Calcium 8.8 (8.4-10.2) mg/dL Total Bilirubin 1.4 H (0.2-1.3) mg/dL AST 31 (14-36) IU/L ALT 18 (<35) IU/L Alkaline Phosphatase 47 (38-126) U/L Total Protein 6.9 (6.3-8.2) g/dL Albumin 3.8 (3.5-5.0) g/dL Globulin 3.1 (1.7-4.1) g/dL Albumin/Globulin Ratio 1.2 (1.0-2.8) SARS-CoV-2 (PCR) Negative (Negative) Imaging Data CT soft tissue neck: Radiologist's Impression: PROCEDURE:? CT SOFT TISSUE NECK W CON ? INDICATIONS:? difficulty breathing, post op swelling ? TECHNIQUE:? After the administration of intravenous contrast, 3.0 mm axial sections acquired from the sella to the aortic arch.? Additional oblique axial 3.0 mm sections acquired through the pharynx.? 3 mm thick coronal and sagittal reformats were generated.? For radiation dose reduction, the following was used:? automated exposure control.? ? COMPARISON:? None. ? FINDINGS:? Image quality:? Excellent.? ? Lymph nodes:? No enlarged lymph nodes seen throughout the neck.? ? Vessels:? Visualized vasculature appears patent.? ? Neck spaces:? There is mild right and moderate subcutaneous fat stranding and fluid throughout the left neck involving the superficial and deep space is.? There is submucosal edema versus soft tissue mass within the oropharynx extending into the hypopharynx, causing severe narrowing of the supraglottic airway.? Small amount of soft tissue gas within the soft tissues at the medial aspect of the right mandibular angle.? Small amount of soft tissue gas at the lateral aspect of the left maxilla. ? Glands:? The parotid and submandibular glands appear normal.? Thyroid gland is within normal limits.? ? Miscellaneous:? Visualized brain and orbits appear normal.? Lung apices appear clear.? Superficial soft tissues appear normal. ? Bones:? ORIF of the mandible has been performed.? No suspicious bony lesions.? Visualized sinuses and mastoids appear unremarkable.? ? ? IMPRESSION:? 1. Soft tissue fluid in fat stranding within the neck as described above, as well as soft tissue gas, suggestive of infection.? The presence of soft tissue gas may indicate infection with a gas producing organism. 2. Submucosal hypodensity within the oropharynx and hypopharynx, causing severe narrowing of the airway, consistent with infection.? Underlying neoplasm cannot be excluded. ? Dictated by: Senia Faria M.D. on 10/07/2022 at 16:54? [facility] Narrative Medical decision making narrative: Patient 62-year-old female postop day 1. Presenting today with difficulty breathing. She is obvious swelling on the left side for face secondary to a left facial vein bleed. She was given dexamethasone and epinephrine she reports significant improvement in her breathing ability. Her voice has improved. She is tolerating oral fluids. 1430: I have called and spoken to Dr. Warner, the oral surgeon who state that she did get some dexamethasone yesterday he reported that her lungs were clear and that her O2 was clear upon discharge and recommended that she use her inhaler. Patient has obvious pharyngeal swelling that responded well to epinephrine and dexamethasone. This is likely secondary all postop. Patient reexamined she feels like she is more swelling. But still managing her secretions voice sounds similar as it has no significant muffling. CT confirms severe narrowing of the airway. Unlikely infection. The gas and swelling is likely postop. Operation was done yesterday not enough time for infection to settle in. 1700 Dr. Cameron anesthesiology consult and rate regards to difficult airway if needed however currently stable he is in the OR 1715-Dr. Zamora ENT consulted in regards to postop and airway management. He reports that she responded well to dexamethasone give more dexamethasone and then give 8 mg every 8 hours for the next 72 hours. He says they usually do well. However definitely admit. Patient continues to be stable she is given a 2nd dose of 10 mg of dexamethasone for total of 20 she got IV fluids. This is unlikely infectious. Patient may need definitive airway until swelling goes down, waiting for anesthesia assessment. Dr. Cameron, anesthesia at bedside he is spoken to Oral surgery at this time seems reasonable for conservative care and IV steroids. I spoke with ICU tele hit field laborer who agrees with monitoring airway does not need to be transferred at this time. Recommends having a nasopharyngeal is at bedside along with a crit kit. Isidoro WALLER accepts patient Critical Care Time Critical Care Time Critical Care Time: Yes Total Critical Care Time: 60 Attestation: The high probability of a clinically significant, sudden or life threatening deterioration of the airway compromise required my full and direct attention, intervention and personal management. The aggregate critical care time was 60 minutes. This time is in addition to time spent performing reported procedures but includes the following: [x] Data Review and interpretation [x] Patient assessment and monitoring of vital signs [x] Documentation [x] Medication orders and management Discharge Plan Departure Patient Disposition: Admitted As Inpatient Clinical Impression: Swelling of pharynx, Post-operative pain Admit Date/Time: 10/07/22 20:06 Admit Provider: Mala Chaudhry
[2022-10-07] MEDS: SODIUM CHLORIDE 0.9% 1,000 ML 1000 ML IV (13:47)
[2022-10-07 14:17] LABS: Add Manual Diff / Slide Review NO; Basophils Absolute Auto 100 /uL (0-100); Basophils Percent Auto 0.6 % (0-2); Eosinophils Absolute Auto 0 /uL (0-450); Lymphocytes Absolute Auto 1800 /uL (1100-4500); Lymphocytes Percent Auto 13.2 % (25-40); Mean Corpuscular HGB Conc 33.2 % (30-36); Mean Corpuscular Hemoglobin 32.6 PG (26-34); Mean Corpuscular Volume 98.1 fL (80-100); Monocytes Absolute Auto 1000 /uL (0-900); Monocytes Percent Auto 7.5 % (3-14); Neutrophils Absolute Auto 10900 /uL (1500-7000); Neutrophils Percent Auto 78.7 % (50-75); Platelet Count 278 X10^3/uL (150-400); Red Blood Cell Count 3.36 X10^6/uL (4.0-5.2); White Blood Cell Count 13.9 X10^3/uL (4.5-11.0)
[2022-10-07 14:24] LABS: Alanine Aminotransferase 18 IU/L (<35); Albumin 3.8 g/dL (3.5-5.0); Albumin Globulin Ratio 1.2 (1.0-2.8); Alkaline Phosphatase 47 U/L (38-126); Aspartate Aminotransferase 31 IU/L (14-36); BUN Creatinine Ratio 18.5 (6-22); Bilirubin Total 1.4 mg/dL (0.2-1.3); Blood Urea Nitrogen 12 mg/dL (7-17); Calcium 8.8 mg/dL (8.4-10.2); Carbon Dioxide 29 mmol/L (22-32); Chloride 101 mmol/L (98-107); Estimated Glomerular Filt Rate > 60 mL/min (>60); Globulin 3.1 g/dL (1.7-4.1); Glucose 104 mg/dL (80-110); HEMOLYSIS < 15 (0-50); Sodium 134 mmol/L (137-145); Total Protein 6.9 g/dL (6.3-8.2)
[2022-10-07] MEDS: MORPHINE 2 MG/ML INJ IV (16:21)
--- NOTE | 2022-10-07 16:26 | DI.CT.S_ITS ---
PROCEDURE: CT SOFT TISSUE NECK W CON INDICATIONS: difficulty breathing, post op swelling TECHNIQUE: After the administration of intravenous contrast, 3.0 mm axial sections acquired from the sella to the aortic arch. Additional oblique axial 3.0 mm sections acquired through the pharynx. 3 mm thick coronal and sagittal reformats were generated. For radiation dose reduction, the following was used: automated exposure control. COMPARISON: None. FINDINGS: Image quality: Excellent. Lymph nodes: No enlarged lymph nodes seen throughout the neck. Vessels: Visualized vasculature appears patent. Neck spaces: There is mild right and moderate subcutaneous fat stranding and fluid throughout the left neck involving the superficial and deep space is. There is submucosal edema versus soft tissue mass within the oropharynx extending into the hypopharynx, causing severe narrowing of the supraglottic airway. Small amount of soft tissue gas within the soft tissues at the medial aspect of the right mandibular angle. Small amount of soft tissue gas at the lateral aspect of the left maxilla. Glands: The parotid and submandibular glands appear normal. Thyroid gland is within normal limits. Miscellaneous: Visualized brain and orbits appear normal. Lung apices appear clear. Superficial soft tissues appear normal. Bones: ORIF of the mandible has been performed. No suspicious bony lesions. Visualized sinuses and mastoids appear unremarkable. IMPRESSION: 1. Soft tissue fluid in fat stranding within the neck as described above, as well as soft tissue gas, suggestive of infection. The presence of soft tissue gas may indicate infection with a gas producing organism. 2. Submucosal hypodensity within the oropharynx and hypopharynx, causing severe narrowing of the airway, consistent with infection. Underlying neoplasm cannot be excluded. Dictated by: Senia Faria M.D. on 10/07/2022 at 16:54 Approved by: Senia Faria M.D. on 10/07/2022 at 16:58
[2022-10-07 17:49] LABS: COVID19 -Nasal RAPID Negative (Negative)
[2022-10-07] MEDS: HYDROMORPHONE 0.5 MG INJ IV (18:23)
--- NOTE | 2022-10-07 20:15 | DI.RAD.S_ITS ---
PROCEDURE: XR CHEST 2V INDICATIONS: airway swelling, elevated WBC recent surg TECHNIQUE: 2 views of the chest were acquired. COMPARISON: [facility], , XR CHEST 1V, 05/20/2020, 17:17. FINDINGS: Surgical changes and devices: Postsurgical changes redemonstrated within the lower cervical spine. Lungs and pleura: Lungs are clear. There is hyperinflation of the lungs with flattening of the hemidiaphragms compatible with COPD. No pleural effusions or pneumothorax. Mediastinum: Mediastinal contours are normal. Heart size is normal. Bones and chest wall: No suspicious bony abnormalities. Soft tissues appear unremarkable. IMPRESSION: 1. No acute cardiopulmonary disease. Dictated by: Nicholas Leiva M.D. on 10/07/2022 at 21:35 Approved by: Nicholas Leiva M.D. on 10/07/2022 at 21:36
--- NOTE | 2022-10-07 20:40 | PM.EICU.INT ---
Teleintensivist Intervention Date/Time Was camera activated?: No Issue(s) Addressed Issue(s): Resp. Distress/Ventilator management Intervention(s) :: Contacted by ER Physician regarding Ms. Felix. Repored that patient had recent mandibular surgery, presenting with muffled voice and stridor c/f airway obstruction. CT obtained which demonstrates severe airway narrowing. THeir suspicion is for hematoma (known) v post-op swelling, not infection. Patient had received epi, decadron. ENT and Anesthesia consulted (and evaluated patient at bedside). ER Physician notes patient now has normal voice, no stridor, oxygenating well and no respiratory distress. Anesthesia/ER Physician feel patient does not require intubation at this time. I am not able to perform a Tele-Eval of patietn while they are in the ER. I recommended having a Cric kit in the room and that ER Physician/Anesthesiologist are prepared for difficult airway and possible emergent Cric if airway is ultimately needed (consider also evaluating front of neck landmarks/marking in advance). Dex to be continued. Closer airway monitoring in ER. ENT consultation. Formal Tele evaluation to follow when patient in the ICU.
[2022-10-07 21:03] LABS: INR 1.2 (0.9-1.3); Prothrombin Time 13.5 SECONDS (10.1-12.7)
[2022-10-07 21:06] LABS: PTT Partial Thromboplastin Tim 26 SECONDS (26-36)
[2022-10-07 21:12] LABS: Lactate (Lactic Acid) 1.2 mmol/L (0.7-2.1); Magnesium 1.9 mg/dL (1.6-2.3)
[2022-10-07 21:29] LABS: Procalcitonin 0.33 ng/mL (<0.5)
[2022-10-07] MEDS: DEXTROSE 5%-0.9% NS 1,000 ML 100 ML IV (22:20)
[2022-10-07] MEDS: KETOROLAC 30 MG/ML VIAL IV (22:21)
[2022-10-07 23:52] LABS: MRSA (Nasal) PCR Not Detected (Not Detect)
[2022-10-08] VITALS (8 sets, daily range): BP systolic 143–164; BP diastolic 65–92; PULSE 65–93; RESP 8–21; TEMP 36.6–37.2; O2SAT 96–100
[2022-10-08] MEDS: HYDROMORPHONE 0.5 MG INJ IV ×2 (00:11→11:01)
[2022-10-08] MEDS: DEXAMETHASONE 10 MG/ML VIAL 8 MG IV ×4 (01:20→20:59)
--- NOTE | 2022-10-08 01:23 | P.TELICUCN_ITS ---
History of Present Illness Consult details IF CAMERA ACTIVATED, patient seen via real-time interactive audiovisual communication: Camera activated Chief complaint: post jaw surgery, trouble breathing, can't swallow Consent obtained for tele-oil and gas recruiter care: Yes Patient Location: ICU Provider location (State): [place] Other participants/roles: BEVERLY Chaudhry RN Narrative: 62 y.o. who presented to ED w/ trouble swallowing; was discharged from [facility] 10/07 after oral surgery for submandibular retrognathia. Apparently had L facial venous bleeding. Had hypophonia as well as L facial swelling. CT scan show oropharyngeal/hypopharnygeal airway narrowing as well as fat stranding in neck soft tissue. ENT/anesthesia were consulted by ED staff; dexamethasone and epinephrine were given in the ED. [facility] Medical History Chronic back pain (~2003) Colitis (~2000) Colon polyps (~2000) Crohn's disease (~2000) Hearing deficit Irritable bowel syndrome (~2015) Knee pain, left Menopause Ovarian cyst Scoliosis Skin cancer (~2014) Surgical History Anesthesia Burn of arm History of cystoscopy History of neck surgery (~2004) History of surgery History of surgery (~03/2013) S/P colon resection Status post hysterectomy (~2007) Status post laparoscopic cholecystectomy (~1979) Family History Father Age: 84 Hypertension Grandfather Stroke Grandmother Breast CA Mother Age: 81 Hypertension Obesity Grandmother Colon cancer Social History marital status: household members: spouse lives independently: Yes caregiver/support person: No housing: house Smoking Status: Former smoker second hand exposure: No alcohol intake: current substance use type: does not use Current Medications Current Medications Medications: Home Medications multivitamin 1 tab PO DAILY 08/13/20 [History Confirmed 09/30/22] losartan 25 mg tablet 25 mg PO DAILY #90 tabs 02/08/22 [Rx Confirmed 09/30/22] scopolamine base 1 mg over 3 days transdermal patch 1 patch transdermal Q72H #1 ea 04/18/22 [Rx Confirmed 09/30/22] estradiol 0.05 mg/24 hr semiweekly transdermal patch See Rx Instructions .Route .COMPLEX #24 patches 07/12/22 [Rx Confirmed 09/30/22] CMP Testosterone Cream 2mg See Rx Instructions .Route .COMPLEX #30 mg 08/08/22 [Rx Confirmed 09/30/22] alprazolam 1 mg tablet 1 mg PO BEDTIME PRN anxiety 08/15/22 [History Confirmed 09/30/22] aspirin 81 mg tablet,delayed release 325 mg PO DAILY 08/15/22 [History Confirmed 09/30/22] linaclotide 72 mcg capsule (Linzess) 75 mcg PO DAILY PRN 08/15/22 [History Confirmed 09/30/22] naproxen 500 mg tablet 500 mg PO BID #90 tabs 08/23/22 [Rx Confirmed 09/30/22] ertapenem 1 gram intravenous solution 1 g IV DAILY 10/07/22 [History Confirmed 10/07/22] Visit Medications (administered) Generic Name Dose Route Start Last Admin Trade Name Chaoq PRN Reason Stop Dose Admin Dexamethasone 8 mg 10/08/22 02:00 10/08/22 01:20 Dexamethasone 10 Mg/Ml Vial IV 10/11/22 01:59 8 mg Q8HR JANIE Administration Hydromorphone HCl 0.5 mg 10/07/22 20:08 10/08/22 00:11 Hydromorphone 0.5 Mg Inj IV 0.5 mg Q4HR PRN Administration Pain, Severe (7-10) Dextrose/Sodium Chloride 1,000 mls @ 100 mls/hr 10/07/22 20:15 10/07/22 22:20 Dextrose 5%-0.9% Ns IV 100 mls/hr CONT JANIE Administration Ketorolac Tromethamine 30 mg 10/07/22 20:14 10/07/22 22:21 Ketorolac 30 Mg/Ml Vial IV 30 mg PRN PRN Administration Fever/Mild Pain (1-3) Review of Systems Review of Systems Narrative: Not performed as pt sleeping Exam Vital Signs (past 8 hours): - 10/07/22 17:30 10/07/22 17:30 10/07/22 17:45 Temperature Pulse Rate 90 Respiratory Rate Blood Pressure 159/84 H 154/85 H Pulse Oximetry 97 Oxygen Delivery Method 10/07/22 17:45 10/07/22 18:00 10/07/22 18:00 Temperature Pulse Rate 88 95 H Respiratory Rate Blood Pressure 160/85 H Pulse Oximetry 99 98 Oxygen Delivery Method 10/07/22 18:15 10/07/22 18:15 10/07/22 18:30 Temperature Pulse Rate 95 H Respiratory Rate Blood Pressure 153/80 H 152/82 H Pulse Oximetry 98 Oxygen Delivery Method 10/07/22 18:30 10/07/22 18:45 10/07/22 18:45 Temperature Pulse Rate 88 89 Respiratory Rate Blood Pressure 157/84 H Pulse Oximetry 99 99 Oxygen Delivery Method 10/07/22 19:00 10/07/22 19:00 10/07/22 19:15 Temperature Pulse Rate 71 Respiratory Rate Blood Pressure 165/84 H 149/79 H Pulse Oximetry 96 Oxygen Delivery Method 10/07/22 19:15 10/07/22 19:30 10/07/22 19:30 Temperature Pulse Rate 99 H 79 Respiratory Rate Blood Pressure 150/80 H Pulse Oximetry 99 99 Oxygen Delivery Method 10/07/22 19:52 10/07/22 19:52 10/07/22 20:00 Temperature Pulse Rate 92 H Respiratory Rate Blood Pressure 168/78 H 161/88 H Pulse Oximetry 99 Oxygen Delivery Method 10/07/22 20:00 10/07/22 20:10 10/07/22 20:15 Temperature Pulse Rate 87 71 Respiratory Rate 14 Blood Pressure 157/76 H Pulse Oximetry 98 100 Oxygen Delivery Method Room Air 10/07/22 20:15 10/07/22 20:20 10/07/22 20:30 Temperature Pulse Rate 80 102 H 108 H Respiratory Rate Blood Pressure Pulse Oximetry 100 97 94 Oxygen Delivery Method 10/07/22 20:40 10/07/22 20:50 10/07/22 21:00 Temperature Pulse Rate 84 86 79 Respiratory Rate Blood Pressure Pulse Oximetry 99 98 97 Oxygen Delivery Method 10/07/22 21:10 10/07/22 21:20 10/07/22 21:30 Temperature Pulse Rate 81 82 75 Respiratory Rate 16 Blood Pressure Pulse Oximetry 99 100 100 Oxygen Delivery Method Room Air 10/07/22 23:00 10/08/22 00:00 10/07/22 22:14 Temperature Pulse Rate Respiratory Rate Blood Pressure 155/76 H Pulse Oximetry Oxygen Delivery Method Room Air Blow By Room Air Blow By 10/07/22 22:14 10/07/22 22:30 10/07/22 22:30 Temperature Pulse Rate 77 84 Respiratory Rate 19 17 Blood Pressure 152/78 H Pulse Oximetry 98 97 Oxygen Delivery Method 10/07/22 23:01 10/07/22 23:01 10/08/22 00:00 Temperature 98.2 F Pulse Rate 102 H Respiratory Rate 34 H Blood Pressure 154/86 H 143/67 H Pulse Oximetry 91 Oxygen Delivery Method 10/08/22 00:00 10/08/22 00:33 Temperature Pulse Rate 71 65 Respiratory Rate 8 L 9 L Blood Pressure Pulse Oximetry 96 97 Oxygen Delivery Method Oxygen Delivery Method Room Air,Blow By Const General: comfortable Resp Effort & Inspection: normal respiratory effort Cardio Rate: regular rate Rhythm: regular rhythm Objective Labs 10/07/22 13:01 10/07/22 13:01 Labs: Laboratory Results - last 24 hr 10/07/22 10/07/22 10/07/22 13:01 13:01 17:08 WBC 13.9 H RBC 3.36 L Hgb 11.0 L Hct 33.0 L MCV 98.1 MCH 32.6 MCHC 33.2 RDW 13.0 Plt Count 278 Neut % (Auto) 78.7 H Lymph % (Auto) 13.2 L [place] % (Auto) 7.5 Eos % (Auto) 0.0 L Baso % (Auto) 0.6 Neut # (Auto) 62580 H Lymph # (Auto) 1800 [place] # (Auto) 1000 H Eos # (Auto) 0 Baso # (Auto) 100 PT INR APTT Sodium 134 L Potassium 4.0 Chloride 101 Carbon Dioxide 29 BUN 12 Creatinine 0.65 Estimated GFR > 60 BUN/Creatinine Ratio 18.5 Glucose 104 Lactate Calcium 8.8 Magnesium Total Bilirubin 1.4 H AST 31 ALT 18 Alkaline Phosphatase 47 Total Protein 6.9 Albumin 3.8 Globulin 3.1 Albumin/Globulin Ratio 1.2 Procalcitonin Nasal Screen MRSA (PCR) SARS-CoV-2 (PCR) Negative 10/07/22 10/07/22 10/07/22 20:35 20:35 20:35 WBC RBC Hgb Hct MCV MCH MCHC RDW Plt Count Neut % (Auto) Lymph % (Auto) [place] % (Auto) Eos % (Auto) Baso % (Auto) Neut # (Auto) Lymph # (Auto) [place] # (Auto) Eos # (Auto) Baso # (Auto) PT 13.5 H INR 1.2 APTT 26 Sodium Potassium Chloride Carbon Dioxide BUN Creatinine Estimated GFR BUN/Creatinine Ratio Glucose Lactate Calcium Magnesium 1.9 Total Bilirubin AST ALT Alkaline Phosphatase Total Protein Albumin Globulin Albumin/Globulin Ratio Procalcitonin 0.33 Nasal Screen MRSA (PCR) SARS-CoV-2 (PCR) 10/07/22 10/07/22 20:35 22:41 WBC RBC Hgb Hct MCV MCH MCHC RDW Plt Count Neut % (Auto) Lymph % (Auto) [place] % (Auto) Eos % (Auto) Baso % (Auto) Neut # (Auto) Lymph # (Auto) [place] # (Auto) Eos # (Auto) Baso # (Auto) PT INR APTT Sodium Potassium Chloride Carbon Dioxide BUN Creatinine Estimated GFR BUN/Creatinine Ratio Glucose Lactate 1.2 Calcium Magnesium Total Bilirubin AST ALT Alkaline Phosphatase Total Protein Albumin Globulin Albumin/Globulin Ratio Procalcitonin Nasal Screen MRSA (PCR) Not detected SARS-CoV-2 (PCR) Assessment & Plan Assessment and plan (1) Swelling of pharynx: Status: Acute Plan: -Airway watch -Continue dexamethasone (2) Hypertension: Qualifiers: Hypertension type: primary hypertension Qualified Code(s): I10 - Essential (primary) hypertension Status: Chronic Plan: -PRN antihypertensive IVP Time Spent With Patient Time with patient: less than 30 minutes
[2022-10-08] MEDS: LORazepam 2 MG/ML INJ 0.5 MG IV ×2 (01:50→22:23)
--- NOTE | 2022-10-08 02:19 | P.HP_ITS ---
History of Present Illness History of Present Illness Date Patient Seen: 10/07/22 Time Patient Seen: 20:22 Chief complaint: post jaw surgery, trouble breathing, can't swallow Narrative: Lindsay Felix is a 62-year-old female with a medical history of hyperlipidemia, Crohn's disease, IBS, who underwent mandible surgery at [facility] and was discharged earlier today who came into the ED with extreme difficulty breathing and shortness of breath with increased left-sided facial swelling bruising, inability to swallow, with a muffled voice and airway swelling and compromise. In the ED Dr. Austin consulted anesthesiology Dr. Cameron, ENT Dr. Zamora, surgeon Dr. Orozco, and Dr. Ann tele coal feeder operator. It was determined that the patient was able to protect her airway required IV steroids and fluids for approximately 48-72 hours it was recommended that she not be intubated but that if she did require airway support to place a nasopharyngeal airway. Currently the patient is using attempted mask to add moisture hydration and oxygen support. Patient improved following epinephrine and steroid medication. On admit patient notes that her shortness of breath has improved, swelling is decreasing, she is able to speak in full sentences without compromise, she is having significant amount of fluid accumulation and mild difficulty clearing her airway. denies chest pain, headache, changes in vision, weakness, numbness, tingling, difficulty with ambulation, recent falls, head injury, LOC, fever, body aches, chills, recent exposure to illness, abdominal pain, nausea, vomiting, urinary incontinence/retention, dysuria, frequency, urgency, jason turia, bowel changes, constipation, incontinence, melena, rashes, recent changes to medication. Patient's labs at admit WBC 13.9 neutrophils 10,100, mono 1000, H&H 11/33, sodium 134, bili 1.4 COVID is negative patient's soft tissue neck imaging shows soft tissue hypodensity within oropharynx hypo oropharynx and airway narrowing. Patient admitted for pharyngeal swelling secondary to status post mandibular surgery. ENT Dr. Zamora will consult. Patient is stable and in no distress at this time. Patient History Medical History Chronic back pain (~2003) Colitis (~2000) Colon polyps (~2000) Crohn's disease (~2000) Hearing deficit Irritable bowel syndrome (~2015) Knee pain, left Menopause Ovarian cyst Scoliosis Skin cancer (~2014) Surgical History Anesthesia Burn of arm History of cystoscopy History of neck surgery (~2004) History of surgery History of surgery (~03/2013) S/P colon resection Status post hysterectomy (~2007) Status post laparoscopic cholecystectomy (~1979) Family & Social History Family History Father Age: 84 Hypertension Grandfather Stroke Grandmother Breast CA Mother Age: 81 Hypertension Obesity Grandmother Colon cancer Social History: household members spouse Prior Living Arrangements House lives independently Yes caregiver/support person No Safety & Behavioral: Feels Safe in Current Yes Environment Been Physically Hurt or No Threatened By a Person Tobacco & Substance use: Smoking Status Former smoker alcohol intake current alcohol intake frequency 0-2 drinks per day Substance Use Type does not use Meds Home Medications and Allergies Home Medications Medication Instructions Recorded Confirmed Type multivitamin 1 tab PO DAILY 08/13/20 09/30/22 History losartan 25 mg tablet 25 mg PO DAILY #90 tabs 02/08/22 09/30/22 Rx scopolamine base 1 mg over 3 days 1 patch transdermal Q72H #1 ea 04/18/22 0 09/30/22 Rx transdermal patch estradiol 0.05 mg/24 hr semiweekly See Rx Instructions .Route 07/12/22 09/30/22 Rx transdermal patch .COMPLEX #24 patches CMP Testosterone Cream 2mg See Rx Instructions .Route 08/08/22 09/30/22 Rx .COMPLEX #30 mg alprazolam 1 mg tablet 1 mg PO BEDTIME PRN anxiety 08/15/22 09/30/22 History aspirin 81 mg tablet,delayed 325 mg PO DAILY 08/15/22 09/30/22 History release linaclotide 72 mcg capsule 75 mcg PO DAILY PRN 08/15/22 09/30/22 History (Linzess) naproxen 500 mg tablet 500 mg PO BID #90 tabs 08/23/22 09/30/22 Rx ertapenem 1 gram intravenous 1 g IV DAILY 10/07/22 10/07/22 History solution Allergies Allergy/AdvReac Type Severity Reaction Status Date / Time amoxicillin AdvReac Severe red Verified 10/07/22 13:01 peeling skin hands/ears Penicillins AdvReac Unknown Verified 10/07/22 13:01 Review of Systems Review of Systems Narrative: All 12 point systems reviewed with the patient and are negative except otherwise documented. Exam Vital Signs (past 8 hours): - 10/07/22 18:30 10/07/22 18:30 10/07/22 18:45 Temperature Pulse Rate 88 Respiratory Rate Blood Pressure 152/82 H 157/84 H Pulse Oximetry 99 Oxygen Delivery Method Fraction of Inspired Oxygen 10/07/22 18:45 10/07/22 19:00 10/07/22 19:00 Temperature Pulse Rate 89 71 Respiratory Rate Blood Pressure 165/84 H Pulse Oximetry 99 96 Oxygen Delivery Method Fraction of Inspired Oxygen 10/07/22 19:15 10/07/22 19:15 10/07/22 19:30 Temperature Pulse Rate 99 H Respiratory Rate Blood Pressure 149/79 H 150/80 H Pulse Oximetry 99 Oxygen Delivery Method Fraction of Inspired Oxygen 10/07/22 19:30 10/07/22 19:52 10/07/22 19:52 Temperature Pulse Rate 79 92 H Respiratory Rate Blood Pressure 168/78 H Pulse Oximetry 99 99 Oxygen Delivery Method Fraction of Inspired Oxygen 10/07/22 20:00 10/07/22 20:00 10/07/22 20:10 Temperature Pulse Rate 87 71 Respiratory Rate 14 Blood Pressure 161/88 H Pulse Oximetry 98 100 Oxygen Delivery Method Room Air Fraction of Inspired Oxygen 10/07/22 20:15 10/07/22 20:15 10/07/22 20:20 Temperature Pulse Rate 80 102 H Respiratory Rate Blood Pressure 157/76 H Pulse Oximetry 100 97 Oxygen Delivery Method Fraction of Inspired Oxygen 10/07/22 20:30 10/07/22 20:40 10/07/22 20:50 Temperature Pulse Rate 108 H 84 86 Respiratory Rate Blood Pressure Pulse Oximetry 94 99 98 Oxygen Delivery Method Fraction of Inspired Oxygen 10/07/22 21:00 10/07/22 21:10 10/07/22 21:20 Temperature Pulse Rate 79 81 82 Respiratory Rate Blood Pressure Pulse Oximetry 97 99 100 Oxygen Delivery Method Fraction of Inspired Oxygen 10/07/22 21:30 10/07/22 23:00 10/08/22 00:00 Temperature Pulse Rate 75 Respiratory Rate 16 Blood Pressure Pulse Oximetry 100 Oxygen Delivery Method Room Air Room Air Blow By Room Air Blow By Fraction of Inspired Oxygen 10/07/22 22:14 10/07/22 22:14 10/07/22 22:30 Temperature Pulse Rate 77 84 Respiratory Rate 19 17 Blood Pressure 155/76 H Pulse Oximetry 98 97 Oxygen Delivery Method Fraction of Inspired Oxygen 10/07/22 22:30 10/07/22 23:01 10/07/22 23:01 Temperature Pulse Rate 102 H Respiratory Rate 34 H Blood Pressure 152/78 H 154/86 H Pulse Oximetry 91 Oxygen Delivery Method Fraction of Inspired Oxygen 10/08/22 00:00 10/08/22 00:00 10/08/22 00:33 Temperature 98.2 F Pulse Rate 71 65 Respiratory Rate 8 L 9 L Blood Pressure 143/67 H Pulse Oximetry 96 97 Oxygen Delivery Method Fraction of Inspired Oxygen 10/07/22 22:26 Temperature Pulse Rate 90 Respiratory Rate Blood Pressure Pulse Oximetry 97 Oxygen Delivery Method Aerosol Mask Fraction of Inspired Oxygen 21 Fraction of Inspired Oxygen 21 SaO2/FiO2 Ratio 461 Oxygen Delivery Method Room Air,Blow By Narrative Exam Narrative: General: Patient is a well-developed, well-nourished in no distress at this time. HEENT: Normocephalic, patient has noted severe bruising and inflammation to left side of face, around left orbital, along left jawline, unable to visualize oropharynx, lips are swollen severely bruised, patient is having slight difficulty with oral secretions, is able to speak in full and complete sentences without shortness of breath, speech is not muffled. Chest: Normal AP diameter and contour without kyphoscoliosis, no nasal flaring, retractions, or tachypneic labored breathing Lungs: Auscultation of all lung mccracken are clear without adventitious sounds, wheezes, rhonchi, or rales. Cardio: S1 & S2 with regular rate and rhythm without murmur, rubs, or gallops, no carotid bruit, no cardiac pulsations present. Abdomen: Soft nontender, negative for organomegaly, or masses. Bowel sounds are present in all 4 quadrants without guarding or rebound, no CVA tenderness. Musculoskeletal: Muscle strength and tone are equal within normal limits, no deformity, crepitus, effusions, cyanosis, clubbing or edema present. Full range of motion intact radial and pedal pulses are normal. Skin: Warm dry and intact without rashes, ulcerations or petechiae. Neuro: Alert and orientated x3, strength is +5/5 in all extremities, sensation to touch intact, no gross deficits noted of cranial nerves. Psych: Patient has a well-kept appearance, appropriate affect, mental status attitude thought context and judgment are appropriate for age. Objective Labs 10/07/22 13:01 10/07/22 13:01 Labs: Laboratory Results - last 24 hr 10/07/22 10/07/22 10/07/22 13:01 13:01 17:08 WBC 13.9 H RBC 3.36 L Hgb 11.0 L Hct 33.0 L MCV 98.1 MCH 32.6 MCHC 33.2 RDW 13.0 Plt Count 278 Neut % (Auto) 78.7 H Lymph % (Auto) 13.2 L [place] % (Auto) 7.5 Eos % (Auto) 0.0 L Baso % (Auto) 0.6 Neut # (Auto) 52000 H Lymph # (Auto) 1800 [place] # (Auto) 1000 H Eos # (Auto) 0 Baso # (Auto) 100 PT INR APTT Sodium 134 L Potassium 4.0 Chloride 101 Carbon Dioxide 29 BUN 12 Creatinine 0.65 Estimated GFR > 60 BUN/Creatinine Ratio 18.5 Glucose 104 Lactate Calcium 8.8 Magnesium Total Bilirubin 1.4 H AST 31 ALT 18 Alkaline Phosphatase 47 Total Protein 6.9 Albumin 3.8 Globulin 3.1 Albumin/Globulin Ratio 1.2 Procalcitonin Nasal Screen MRSA (PCR) SARS-CoV-2 (PCR) Negative 10/07/22 10/07/22 10/07/22 20:35 20:35 20:35 WBC RBC Hgb Hct MCV MCH MCHC RDW Plt Count Neut % (Auto) Lymph % (Auto) [place] % (Auto) Eos % (Auto) Baso % (Auto) Neut # (Auto) Lymph # (Auto) [place] # (Auto) Eos # (Auto) Baso # (Auto) PT 13.5 H INR 1.2 APTT 26 Sodium Potassium Chloride Carbon Dioxide BUN Creatinine Estimated GFR BUN/Creatinine Ratio Glucose Lactate Calcium Magnesium 1.9 Total Bilirubin AST ALT Alkaline Phosphatase Total Protein Albumin Globulin Albumin/Globulin Ratio Procalcitonin 0.33 Nasal Screen MRSA (PCR) SARS-CoV-2 (PCR) 10/07/22 10/07/22 20:35 22:41 WBC RBC Hgb Hct MCV MCH MCHC RDW Plt Count Neut % (Auto) Lymph % (Auto) [place] % (Auto) Eos % (Auto) Baso % (Auto) Neut # (Auto) Lymph # (Auto) [place] # (Auto) Eos # (Auto) Baso # (Auto) PT INR APTT Sodium Potassium Chloride Carbon Dioxide BUN Creatinine Estimated GFR BUN/Creatinine Ratio Glucose Lactate 1.2 Calcium Magnesium Total Bilirubin AST ALT Alkaline Phosphatase Total Protein Albumin Globulin Albumin/Globulin Ratio Procalcitonin Nasal Screen MRSA (PCR) Not detected SARS-CoV-2 (PCR) Assessment & Plan Assessment & Plan narrative: Lindsay Aleman 62-year-old female who had left mandibular surgery at [facility], who came into the ED for significant left-sided facial swelling and airway swelling. Admitted for pharyngeal swelling secondary to s/p mandibular surgery. Patient will likely require 72 hours of hospitalization for IV steroid injections and airway management. 1. Pharyngeal swelling, secondary to s/p mandibular surgery, acute, present on admission -consult ENT Dr. Zamora, tele coal feeder operator, oral surgeon, anesthesiology -ED, respiratory, and anesthesiology- plan in place for emergency airway support. -patient admitted to the ICU monitoring-airway respiratory function -Dr. Zamora to consult in the morning -NPO-D5 NS at 100, VS q.6 while NPO -held VTE medication prophylaxis due to the risk of a possible intraoperative bleed. -blood cultures, chest x-ray, procalcitonin, lactate -dexamethasone 8 mg IV q.8 hours times 72 hours 2.. Hypertension, essential, chronic, present on admission -holding p.o. meds losartan, hydralazine as needed for BP management 3. Malnutrition, mild, acute on chronic, present on admission -as evidence by BMI 21.2 -patient's malnutrition places them at high risk for medical and surgical complications in relation to acute illness/chronic illness. This increases the difficulty in complexity of medical management and increases the chances poor outcomes such as mortality and morbidity as well as impaired wound healing, and immune suppression. -dietary consult ordered to evaluate and implement steps to improve caloric intake and nutrition. Code status: Full Surrogate decision maker: Spouse Servando CONTRERAS PCR: Negative DVT/VTE prophylaxis: SCDs Disposition: Admitted to the ICU expected length of stay greater than 2 midnights for 72 hours of IV steroid I have utilized all available immediate resources to obtain, update, or review the patient's current medications. I confirmed that the patient's advanced care plan is present, Code status is documented and/or surrogate decision maker is listed in the patient's medical record. I have personally reviewed patient's chart notes from PCP, specialists, diagnostic imaging, and laboratory results. I spent greater than 60 minutes acute care admit time. . Quality VTE Deep Vein Thrombosis/Pulmonary Embolism Present on Admission: No
[2022-10-08] MEDS: HYDRALAZINE 20 MG/ML VIAL 10 MG IV (03:50)
[2022-10-08 04:50] LABS: BUN Creatinine Ratio 22.6 (6-22); Blood Urea Nitrogen 12 mg/dL (7-17); Calcium 8.5 mg/dL (8.4-10.2); Carbon Dioxide 26 mmol/L (22-32); Chloride 107 mmol/L (98-107); Estimated Glomerular Filt Rate > 60 mL/min (>60); Glucose 155 mg/dL (80-110); HEMOLYSIS < 15 (0-50); Sodium 138 mmol/L (137-145)
[2022-10-08 04:55] LABS: Add Manual Diff / Slide Review NO; Basophils Absolute Auto 0 /uL (0-100); Eosinophils Absolute Auto 0 /uL (0-450); Hemoglobin 10.3 g/dL (12.0-16.0); Lymphocytes Absolute Auto 500 /uL (1100-4500); Lymphocytes Percent Auto 3.7 % (25-40); Mean Corpuscular HGB Conc 33.2 % (30-36); Mean Corpuscular Hemoglobin 32.2 PG (26-34); Mean Corpuscular Volume 97.1 fL (80-100); Monocytes Absolute Auto 300 /uL (0-900); Monocytes Percent Auto 2.5 % (3-14); Neutrophils Absolute Auto 12500 /uL (1500-7000); Neutrophils Percent Auto 93.8 % (50-75); Platelet Count 242 X10^3/uL (150-400); Red Blood Cell Count 3.19 X10^6/uL (4.0-5.2); Red Cell Distribution Width 12.9 % (11.6-14.8); White Blood Cell Count 13.3 X10^3/uL (4.5-11.0)
[2022-10-08] MEDS: KETOROLAC 30 MG/ML VIAL IV ×3 (06:15→20:59)
--- NOTE | 2022-10-08 06:18 | RT ---
Pt continues on heated aerosol via face tent, room-air. No apparent distress noted. SpO2 100%, HR 100 BPM. No change of condition respiratory quijano during this shift.
--- NOTE | 2022-10-08 07:29 | PC.NURSE ---
Admit/Night Note-Patient brought to ICU room 231 at 2145 via WC, ambulates without assist. Voice is hoarse and slightly muffled d/t edema, no stridor, denies respiratory distress, lungs sounds CTA, SpO2 >97% on RA, has dry cough, RT set up heated aerosol face tent. IV decadron given as scheduled, IV Toradol and Dilaudid for pain, IV Ativan for anxiety, IV hydralazine prn for HTN, SR, VSS. Tele-Liquified Natural Gas Technician consulted. at bedside.
[2022-10-08] MEDS: CODEINE/GUAIFENESIN LIQUID 5ML UDC 10 ML PO ×2 (08:44→22:23)
[2022-10-08] MEDS: PANTOPRAZOLE 40 MG VIAL IV (08:44)
--- NOTE | 2022-10-08 09:18 | P.TELICUPN_ITS ---
Subjective Subjective IF CAMERA ACTIVATED, patient seen via real-time interactive audiovisual communication: Camera activated Consent obtained for tele-aircraft powerplant repairer care: Yes Patient Location: ICU Provider location (State): [place] Other participants/roles: hospitalist, RN Interval history: Patient Summary: 62 y.o. 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 CT scan show oropharyngeal/hypopharnygeal airway narrowing as well as fat stranding in neck soft tissue.? ENT/anesthesia were consulted. Dexamethasone and epinephrine were given. Recent events: According to bedside nurse, patient's facial swelling improved and she is now able to swallow some ice chips and pills. SBP 140-150s. Current Medications Current Medications Medications: Home Medications multivitamin 1 tab PO DAILY 08/13/20 [History Confirmed 09/30/22] losartan 25 mg tablet 25 mg PO DAILY #90 tabs 02/08/22 [Rx Confirmed 09/30/22] scopolamine base 1 mg over 3 days transdermal patch 1 patch transdermal Q72H #1 ea 04/18/22 [Rx Confirmed 09/30/22] estradiol 0.05 mg/24 hr semiweekly transdermal patch See Rx Instructions .Route .COMPLEX #24 patches 07/12/22 [Rx Confirmed 09/30/22] CMP Testosterone Cream 2mg See Rx Instructions .Route .COMPLEX #30 mg 08/08/22 [Rx Confirmed 09/30/22] alprazolam 1 mg tablet 1 mg PO BEDTIME PRN anxiety 08/15/22 [History Confirmed 09/30/22] aspirin 81 mg tablet,delayed release 325 mg PO DAILY 08/15/22 [History Confirmed 09/30/22] linaclotide 72 mcg capsule (Linzess) 75 mcg PO DAILY PRN 08/15/22 [History Confirmed 09/30/22] naproxen 500 mg tablet 500 mg PO BID #90 tabs 08/23/22 [Rx Confirmed 09/30/22] ertapenem 1 gram intravenous solution 1 g IV DAILY 10/07/22 [History Confirmed 10/07/22] Visit Medications (administered) Generic Name Dose Route Start Last Admin Trade Name Freq PRN Reason Stop Dose Admin Dexamethasone 8 mg 10/08/22 02:00 10/08/22 06:15 Dexamethasone 10 Mg/Ml Vial IV 10/11/22 01:59 8 mg Q8HR JANIE Administration Guaifenesin/Codeine Phosphate 10 ml 10/08/22 08:33 10/08/22 08:44 Codeine/Guaifenesin Liquid 5ml Udc PO 10 ml Q6H PRN Administration Cough Hydralazine HCl 10 mg 10/08/22 01:29 10/08/22 03:50 Hydralazine 20 Mg/Ml Vial IV 10 mg Q4HR PRN Administration Hypertension Hydromorphone HCl 0.5 mg 10/07/22 20:08 10/08/22 00:11 Hydromorphone 0.5 Mg Inj IV 0.5 mg Q4HR PRN Administration Pain, Severe (7-10) Dextrose/Sodium Chloride 1,000 mls @ 100 mls/hr 10/07/22 20:15 10/08/22 08:27 Dextrose 5%-0.9% Ns IV 100 mls/hr CONT JANIE Infusion Ketorolac Tromethamine 30 mg 10/07/22 20:14 10/08/22 06:15 Ketorolac 30 Mg/Ml Vial IV 30 mg PRN PRN Administration Fever/Mild Pain (1-3) Lorazepam 0.5 mg 10/08/22 01:22 10/08/22 01:50 Lorazepam 2 Mg/Ml Inj IV 0.5 mg Q4HR PRN Administration Anxiety Pantoprazole Sodium 40 mg 10/08/22 09:00 10/08/22 08:44 Pantoprazole 40 Mg Vial IV 40 mg DAILY JANIE Administration Objective Labs 10/08/22 04:17 10/08/22 04:17 Labs: Laboratory Results - last 24 hr 10/07/22 10/07/22 10/07/22 13:01 13:01 17:08 WBC 13.9 H RBC 3.36 L Hgb 11.0 L Hct 33.0 L MCV 98.1 MCH 32.6 MCHC 33.2 RDW 13.0 Plt Count 278 Neut % (Auto) 78.7 H Lymph % (Auto) 13.2 L [place] % (Auto) 7.5 Eos % (Auto) 0.0 L Baso % (Auto) 0.6 Neut # (Auto) 66747 H Lymph # (Auto) 1800 [place] # (Auto) 1000 H Eos # (Auto) 0 Baso # (Auto) 100 PT INR APTT Sodium 134 L Potassium 4.0 Chloride 101 Carbon Dioxide 29 BUN 12 Creatinine 0.65 Estimated GFR > 60 BUN/Creatinine Ratio 18.5 Glucose 104 Lactate Calcium 8.8 Magnesium Total Bilirubin 1.4 H AST 31 ALT 18 Alkaline Phosphatase 47 Total Protein 6.9 Albumin 3.8 Globulin 3.1 Albumin/Globulin Ratio 1.2 Procalcitonin Nasal Screen MRSA (PCR) SARS-CoV-2 (PCR) Negative 10/07/22 10/07/22 10/07/22 20:35 20:35 20:35 WBC RBC Hgb Hct MCV MCH MCHC RDW Plt Count Neut % (Auto) Lymph % (Auto) [place] % (Auto) Eos % (Auto) Baso % (Auto) Neut # (Auto) Lymph # (Auto) [place] # (Auto) Eos # (Auto) Baso # (Auto) PT 13.5 H INR 1.2 APTT 26 Sodium Potassium Chloride Carbon Dioxide BUN Creatinine Estimated GFR BUN/Creatinine Ratio Glucose Lactate Calcium Magnesium 1.9 Total Bilirubin AST ALT Alkaline Phosphatase Total Protein Albumin Globulin Albumin/Globulin Ratio Procalcitonin 0.33 Nasal Screen MRSA (PCR) SARS-CoV-2 (PCR) 10/07/22 10/07/22 10/08/22 20:35 22:41 04:17 WBC 13.3 H RBC 3.19 L Hgb 10.3 L Hct 31.0 L MCV 97.1 MCH 32.2 MCHC 33.2 RDW 12.9 Plt Count 242 Neut % (Auto) 93.8 H Lymph % (Auto) 3.7 L [place] % (Auto) 2.5 L Eos % (Auto) 0.0 L Baso % (Auto) 0.0 Neut # (Auto) 12499 H Lymph # (Auto) 500 L [place] # (Auto) 300 Eos # (Auto) 0 Baso # (Auto) 0 PT INR APTT Sodium Potassium Chloride Carbon Dioxide BUN Creatinine Estimated GFR BUN/Creatinine Ratio Glucose Lactate 1.2 Calcium Magnesium Total Bilirubin AST ALT Alkaline Phosphatase Total Protein Albumin Globulin Albumin/Globulin Ratio Procalcitonin Nasal Screen MRSA (PCR) Not detected SARS-CoV-2 (PCR) 10/08/22 04:17 WBC RBC Hgb Hct MCV MCH MCHC RDW Plt Count Neut % (Auto) Lymph % (Auto) [place] % (Auto) Eos % (Auto) Baso % (Auto) Neut # (Auto) Lymph # (Auto) [place] # (Auto) Eos # (Auto) Baso # (Auto) PT INR APTT Sodium 138 Potassium 4.0 Chloride 107 Carbon Dioxide 26 BUN 12 Creatinine 0.53 Estimated GFR > 60 BUN/Creatinine Ratio 22.6 H Glucose 155 H Lactate Calcium 8.5 Magnesium Total Bilirubin AST ALT Alkaline Phosphatase Total Protein Albumin Globulin Albumin/Globulin Ratio Procalcitonin Nasal Screen MRSA (PCR) SARS-CoV-2 (PCR) Exam Vital Signs (past 8 hours): - 10/08/22 03:50 10/08/22 04:00 10/08/22 04:00 Temperature 98.2 F Pulse Rate 72 92 H Respiratory Rate 17 Blood Pressure 154/92 H 154/92 H Pulse Oximetry 99 Oxygen Delivery Method Room Air Blow By Oxygen Flow Rate 11 Fraction of Inspired Oxygen 21 SaO2/FiO2 Ratio 461 Oxygen Delivery Method Room Air,Blow By Oxygen Flow Rate 11 Narrative Exam Narrative: Patient seen over two way audio visual system. She is alert, calm, and conversant Quality TeleICU VTE Deep Vein Thrombosis/Pulmonary Embolism Present on Admission: No Assessment & Plan Assessment & Plan narrative: Assessment Oralpharynx swelling HTN Plan -continue decadron - restart home losartan for BP control -NPO except for sips of water and meds for now - discuss with ENT if antibiotics are indicated PPx: SCDs and protonix Time Spent With Patient Time with patient: 30 to 49 minutes with 50% spent counseling/coordinating care
[2022-10-08] MEDS: LOSARTAN 25 MG TABLET PO (10:28)
[2022-10-08] MEDS: metroNIDAZOLE 500 MG/100 ML PIGGYBACK 100 MG IV ×2 (15:05→22:23)
--- NOTE | 2022-10-08 15:51 | CM.DANOTE ---
Initial Discharge Assessment Note: Case reviewed, met with patient. Introduced self and role. Payer: Ester KIMBALL and self pay PCP: Dr Deejay Gann 62 year old female admitted yesterday with was s/p mandible surgery on 10/06 at [facility]. She was experiencing SOB, facial and pharyngeal swelling and compromise. She was treated with dexamethasone and epinephrine and O2 via mask. Currently she is off of mask and feeling much better. An ENT consult is pending. She lives with her spouse Servando in [place]. 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 Plan: When medically cleared, return home to care of spouse. RAJ Discharge Planning/Care Management CM Discharge Assessment Start: 10/08/22 15:49 Freq: Status: Active Protocol: Document 10/08/22 15:50 (Rec: 10/08/22 15:51 [id number]) Discharge Planning Assessment Assigned Lace Inspector Veronica Torres RN/DCP Advance Directives? No History Provided By Patient,Significant Other, Medical Record Prior Living Arrangements House Household Members spouse Type of transporation used prior to Drives own vehicle admit Independent with ADL's Yes Is patient alert and oriented? Yes Caregiver for Another No Barriers to Discharge No Discharge Plan Home Referrals Initiated None needed Review Status In Process Next Review Type Continued Stay Review
[2022-10-08] MEDS: CIPROFLOXACIN 400 MG/200 ML PIGGYBACK 200 MG IV (16:39)
[2022-10-08] MEDS: ACETAMINOPHEN 325 MG TABLET 650 MG PO (17:38)
--- NOTE | 2022-10-08 20:18 | PM.PN.1 ---
Subjective Subjective Interval history: Lindsay Felix is a 62-year-old female with a medical history of hyperlipidemia, Crohn's disease, IBS, who underwent mandible surgery at [facility] and was discharged earlier today who came into the ED with extreme difficulty breathing and shortness of breath with increased left-sided facial swelling bruising, inability to swallow, with a muffled voice and airway swelling and compromise.? In the ED Dr. Austin consulted anesthesiology Dr. Cameron, ENT Dr. Zamora,? surgeon Dr. Orozco, and Dr. Ann tele photolithographer.? It was determined that the patient was able to protect her airway required IV steroids and fluids for approximately 48-72 hours it was recommended that she not be intubated but that if she did require airway support to place a nasopharyngeal airway.? Currently the patient is using attempted mask to add moisture hydration and oxygen support. Patient feels improved today and actually can smile and open her mouth slightly more. Feels that the corticosteroid is slowly improving symptoms. The patient further with Dr. Zamora ENT today. He indicated that when patient is able to take enough fluid so that she can maintain hydration at home than at that time to be best time to discharge. Will need to be on tapering prednisone dose. Also based on tissue swelling/significant left cheek contusion antibiotics were initiated Dr. Zamora is in agreement with this. Exam Vital Signs (past 8 hours): - 10/08/22 13:00 10/08/22 16:00 10/08/22 17:43 Temperature 98 F 98.9 F Pulse Rate 83 83 Respiratory Rate 15 21 Blood Pressure 144/65 H 164/77 H Pulse Oximetry 98 100 Oxygen Delivery Method Room Air Blow By Oxygen Flow Rate 11 11 10/08/22 20:00 Temperature 98.8 F Pulse Rate 90 Respiratory Rate 21 Blood Pressure 151/77 H Pulse Oximetry 99 Oxygen Delivery Method Oxygen Flow Rate Fraction of Inspired Oxygen 21 SaO2/FiO2 Ratio 466 Oxygen Delivery Method Room Air,Blow By Oxygen Flow Rate 11 Narrative Exam Narrative: General:? Patient is a well-developed, well-nourished in no distress at this time. HEENT:? Normocephalic, patient has noted severe bruising and inflammation to left side of face, around left orbital, along left jawline, unable to visualize oropharynx, lips are swollen severely bruised, patient is having slight difficulty with oral secretions, is able to speak in full and complete sentences without shortness of breath, speech is not muffled. Chest:? Normal AP diameter and contour without kyphoscoliosis, no nasal flaring, retractions, or tachypneic labored breathing Lungs:? Auscultation of all lung mccracken are clear without adventitious sounds, wheezes, rhonchi, or rales. Cardio:? S1 & S2 with regular rate and rhythm without murmur, rubs, or gallops, no carotid bruit, no cardiac pulsations present. Abdomen:? Soft nontender, negative for organomegaly, or masses.? Bowel sounds are present in all 4 quadrants without guarding or rebound, no CVA tenderness. Musculoskeletal:? Muscle strength and tone are equal within normal limits, no deformity, crepitus, effusions, cyanosis, clubbing or edema present.? Full range of motion intact radial and pedal pulses are normal. Skin:? Warm dry and intact without rashes, ulcerations or petechiae.? Neuro:? Alert and orientated x3, strength is +5/5 in all extremities, sensation to touch intact, no gross deficits noted of cranial nerves. Psych:? Patient has a well-kept appearance, appropriate affect, mental status attitude thought context and judgment are appropriate for age Objective Labs 10/08/22 04:17 10/08/22 04:17 Labs: Laboratory Results - last 24 hr 10/07/22 10/07/22 10/07/22 20:35 20:35 20:35 WBC RBC Hgb Hct MCV MCH MCHC RDW Plt Count Neut % (Auto) Lymph % (Auto) [place] % (Auto) Eos % (Auto) Baso % (Auto) Neut # (Auto) Lymph # (Auto) [place] # (Auto) Eos # (Auto) Baso # (Auto) PT 13.5 H INR 1.2 APTT 26 Sodium Potassium Chloride Carbon Dioxide BUN Creatinine Estimated GFR BUN/Creatinine Ratio Glucose Lactate Calcium Magnesium 1.9 Procalcitonin 0.33 Nasal Screen MRSA (PCR) 10/07/22 10/07/22 10/08/22 20:35 22:41 04:17 WBC 13.3 H RBC 3.19 L Hgb 10.3 L Hct 31.0 L MCV 97.1 MCH 32.2 MCHC 33.2 RDW 12.9 Plt Count 242 Neut % (Auto) 93.8 H Lymph % (Auto) 3.7 L [place] % (Auto) 2.5 L Eos % (Auto) 0.0 L Baso % (Auto) 0.0 Neut # (Auto) 89525 H Lymph # (Auto) 500 L [place] # (Auto) 300 Eos # (Auto) 0 Baso # (Auto) 0 PT INR APTT Sodium Potassium Chloride Carbon Dioxide BUN Creatinine Estimated GFR BUN/Creatinine Ratio Glucose Lactate 1.2 Calcium Magnesium Procalcitonin Nasal Screen MRSA (PCR) Not detected 10/08/22 04:17 WBC RBC Hgb Hct MCV MCH MCHC RDW Plt Count Neut % (Auto) Lymph % (Auto) [place] % (Auto) Eos % (Auto) Baso % (Auto) Neut # (Auto) Lymph # (Auto) [place] # (Auto) Eos # (Auto) Baso # (Auto) PT INR APTT Sodium 138 Potassium 4.0 Chloride 107 Carbon Dioxide 26 BUN 12 Creatinine 0.53 Estimated GFR > 60 BUN/Creatinine Ratio 22.6 H Glucose 155 H Lactate Calcium 8.5 Magnesium Procalcitonin Nasal Screen MRSA (PCR) [facility] Medical History Chronic back pain (~2003) Colitis (~2000) Colon polyps (~2000) Crohn's disease (~2000) Hearing deficit Irritable bowel syndrome (~2015) Knee pain, left Menopause Ovarian cyst Scoliosis Skin cancer (~2014) Surgical History Anesthesia Burn of arm History of cystoscopy History of neck surgery (~2004) History of surgery History of surgery (~03/2013) S/P colon resection Status post hysterectomy (~2007) Status post laparoscopic cholecystectomy (~1979) Family History Father Age: 84 Hypertension Grandfather Stroke Grandmother Breast CA Mother Age: 81 Hypertension Obesity Grandmother Colon cancer Social History marital status: household members: spouse lives independently: Yes caregiver/support person: No housing: house Smoking Status: Former smoker second hand exposure: No alcohol intake: current substance use type: does not use Assessment & Plan Assessment & Plan narrative: 1. Pharyngeal swelling, secondary to s/p mandibular surgery, acute, present on admission -consult ENT Dr. Zamora, tele photolithographer, oral surgeon, anesthesiology -ED, respiratory, and anesthesiology- plan in place for emergency airway support. -patient admitted to the ICU monitoring-airway respiratory function -Dr. Zamora consulted -NPO-D5 NS at 100, VS q.6 while NPO -held VTE medication prophylaxis due to the risk of a possible bety-operative bleed. -blood cultures, chest x-ray, procalcitonin, lactate -dexamethasone 8 mg IV q.8 hours times 72 hours 2.. Hypertension, essential, chronic, present on admission -holding p.o. meds losartan, hydralazine as needed for BP management 3. Malnutrition, mild, acute on chronic, present on admission -as evidence by BMI 21.2 -patient's malnutrition places them at high risk for medical and surgical complications in relation to acute illness/chronic illness.? This increases the difficulty in complexity of medical management and increases the chances poor outcomes such as mortality and morbidity as well as impaired wound healing, and immune suppression. -dietary consult ordered to evaluate and implement steps to improve caloric intake and nutrition. 4. Antibiotic treatment Patient based on Cipro 400 mg IV b.i.d. and metronidazole 500 mg IV b.i.d. these will be transitioned to oral equivalents on discharge Code status:? Full Surrogate decision maker: Spouse Servando CONTRERAS PCR:? Negative DVT/VTE prophylaxis:? SCDs Quality VTE Deep Vein Thrombosis/Pulmonary Embolism Present on Admission: No
--- NOTE | 2022-10-08 20:36 | PM.ICURNDS ---
- Note: Patient discussed with RN. Notes she is still on Decadron. Ambulating, showered today. Improving swelling. No stridor. Continued airway watch, if no new issues and able to tolerate PO/secretions, may be appropriate for downgrade in morning.
[2022-10-08] MEDS: DEXTROSE 5%-0.9% NS 1,000 ML 100 ML IV (20:43)
[2022-10-09] VITALS (10 sets, daily range): BP systolic 128–165; BP diastolic 70–86; PULSE 70–85; RESP 12–22; TEMP 36.4–37.4; O2SAT 95–100
[2022-10-09] MEDS: CODEINE/GUAIFENESIN LIQUID 5ML UDC 10 ML PO (04:11)
[2022-10-09 04:56] LABS: Add Manual Diff / Slide Review NO; Basophils Absolute Auto 0 /uL (0-100); Eosinophils Absolute Auto 0 /uL (0-450); Hematocrit 27.2 % (36-46); Lymphocytes Absolute Auto 1000 /uL (1100-4500); Lymphocytes Percent Auto 4.8 % (25-40); Mean Corpuscular HGB Conc 33.2 % (30-36); Mean Corpuscular Volume 96.6 fL (80-100); Monocytes Absolute Auto 600 /uL (0-900); Monocytes Percent Auto 2.9 % (3-14); Neutrophils Absolute Auto 18400 /uL (1500-7000); Neutrophils Percent Auto 92.3 % (50-75); Platelet Count 239 X10^3/uL (150-400); Red Blood Cell Count 2.82 X10^6/uL (4.0-5.2); Red Cell Distribution Width 13.1 % (11.6-14.8); White Blood Cell Count 19.9 X10^3/uL (4.5-11.0)
[2022-10-09 05:04] LABS: BUN Creatinine Ratio 25.5 (6-22); Blood Urea Nitrogen 14 mg/dL (7-17); Calcium 8.3 mg/dL (8.4-10.2); Carbon Dioxide 24 mmol/L (22-32); Chloride 109 mmol/L (98-107); Estimated Glomerular Filt Rate > 60 mL/min (>60); Glucose 139 mg/dL (80-110); HEMOLYSIS < 15 (0-50); Potassium 3.7 mmol/L (3.4-5.1); Sodium 139 mmol/L (137-145)
[2022-10-09] MEDS: DEXAMETHASONE 10 MG/ML VIAL 8 MG IV ×3 (05:07→22:12)
[2022-10-09] MEDS: CIPROFLOXACIN 400 MG/200 ML PIGGYBACK 200 MG IV ×2 (05:07→17:32)
--- NOTE | 2022-10-09 06:01 | PC.NURSE ---
Medicating patient for pain as needed. Able to talk clearly, but becoming anxious around time for iv steroids. Medicated for pain as needed throughout shift.
[2022-10-09] MEDS: metroNIDAZOLE 500 MG/100 ML PIGGYBACK 100 MG IV ×3 (06:10→22:10)
--- NOTE | 2022-10-09 07:43 | P.TELICUPN_ITS ---
Subjective Subjective IF CAMERA ACTIVATED, patient seen via real-time interactive audiovisual communication: Camera activated Consent obtained for tele-systems tester care: Yes Patient Location: ICU Provider location (State): [place] Other participants/roles: tele icu Interval history: pt is doing much better presently on the decadron and the elevated wbc count is from steroids and not sepsis ,pt afebrile.if tolerating liquids and ok with ent ok to dc to floor and increase mobilization as tolerated and dc planning on tapering dose of prednisone. multidsiciplinary rounds done via video and audio and all rx plans and data reviewed and case dw with bedside nurse and pt in detail , no acute complaints .. ok to dc to tele flloor all qs answered Current Medications Current Medications Medications: Home Medications multivitamin 1 tab PO DAILY 08/13/20 [History Confirmed 10/08/22] losartan 25 mg tablet 25 mg PO DAILY #90 tabs 02/08/22 [Rx Confirmed 10/08/22] scopolamine base 1 mg over 3 days transdermal patch 1 patch transdermal Q72H #1 ea 04/18/22 [Rx Confirmed 10/08/22] estradiol 0.05 mg/24 hr semiweekly transdermal patch See Rx Instructions .Route .COMPLEX #24 patches 07/12/22 [Rx Confirmed 10/08/22] CMP Testosterone Cream 2mg See Rx Instructions .Route .COMPLEX #30 mg 08/08/22 [Rx Confirmed 10/08/22] alprazolam 1 mg tablet 1 mg PO BEDTIME PRN anxiety 08/15/22 [History Confirmed 10/08/22] aspirin 81 mg tablet,delayed release 325 mg PO DAILY 08/15/22 [History Confirmed 10/08/22] linaclotide 72 mcg capsule (Linzess) 75 mcg PO DAILY PRN Constipation 08/15/22 [History Confirmed 10/08/22] naproxen 500 mg tablet 500 mg PO BID #90 tabs 08/23/22 [Rx Confirmed 10/08/22] ertapenem 1 gram intravenous solution 1 g IV DAILY 10/07/22 [History Confirmed 10/07/22] Visit Medications (administered) Generic Name Dose Route Start Last Admin Trade Name Freq PRN Reason Stop Dose Admin Acetaminophen 650 mg 10/08/22 17:32 10/08/22 17:38 Acetaminophen 325 Mg Tablet PO 650 mg Q6H PRN Administration Fever/Mild Pain (1-3) Dexamethasone 8 mg 10/08/22 02:00 10/09/22 05:07 Dexamethasone 10 Mg/Ml Vial IV 10/11/22 01:59 8 mg Q8HR JANIE Administration Guaifenesin/Codeine Phosphate 10 ml 10/08/22 08:33 10/09/22 04:11 Codeine/Guaifenesin Liquid 5ml Udc PO 10 ml Q6H PRN Administration Cough Hydralazine HCl 10 mg 10/08/22 01:29 10/08/22 03:50 Hydralazine 20 Mg/Ml Vial IV 10 mg Q4HR PRN Administration Hypertension Hydromorphone HCl 0.5 mg 10/07/22 20:08 10/08/22 11:01 Hydromorphone 0.5 Mg Inj IV 0.5 mg Q4HR PRN Administration Pain, Severe (7-10) Dextrose/Sodium Chloride 1,000 mls @ 100 mls/hr 10/07/22 20:15 10/08/22 20:43 Dextrose 5%-0.9% Ns IV 100 mls/hr CONT JANIE Administration Metronidazole 500 mg in 100 mls @ 100 mls/hr 10/08/22 15:00 10/09/22 07:17 Flagyl IV Infused Q8H JANIE Infusion Ciprofloxacin 400 mg in 200 mls @ 200 mls/hr 10/08/22 17:00 10/09/22 07:17 Cipro IV Infused Q12H JANIE Infusion Ketorolac Tromethamine 30 mg 10/07/22 20:14 10/08/22 20:59 Ketorolac 30 Mg/Ml Vial IV 30 mg PRN PRN Administration Fever/Mild Pain (1-3) Lorazepam 0.5 mg 10/08/22 01:22 10/08/22 22:23 Lorazepam 2 Mg/Ml Inj IV 0.5 mg Q4HR PRN Administration Anxiety Losartan Potassium 25 mg 10/08/22 10:30 10/08/22 10:28 Losartan 25 Mg Tablet PO 25 mg DAILY JANIE Administration Pantoprazole Sodium 40 mg 10/08/22 09:00 10/08/22 08:44 Pantoprazole 40 Mg Vial IV 40 mg DAILY JANIE Administration Objective Labs 10/09/22 04:10 10/09/22 04:10 Labs: Laboratory Results - last 24 hr 10/09/22 10/09/22 04:10 04:10 WBC 19.9 H RBC 2.82 L Hgb 9.0 L Hct 27.2 L MCV 96.6 MCH 32.0 MCHC 33.2 RDW 13.1 Plt Count 239 Neut % (Auto) 92.3 H Lymph % (Auto) 4.8 L [place] % (Auto) 2.9 L Eos % (Auto) 0.0 L Baso % (Auto) 0.0 Neut # (Auto) 39988 H Lymph # (Auto) 1000 L [place] # (Auto) 600 Eos # (Auto) 0 Baso # (Auto) 0 Sodium 139 Potassium 3.7 Chloride 109 H Carbon Dioxide 24 BUN 14 Creatinine 0.55 Estimated GFR > 60 BUN/Creatinine Ratio 25.5 H Glucose 139 H Calcium 8.3 L Exam Vital Signs (past 8 hours): - 10/09/22 00:00 10/09/22 04:00 Temperature 99.4 F 98.0 F Pulse Rate 77 85 Respiratory Rate 15 12 Blood Pressure 128/79 154/70 H Pulse Oximetry 95 97 Oxygen Flow Rate 9 9 Fraction of Inspired Oxygen 21 SaO2/FiO2 Ratio 466 Oxygen Delivery Method Room Air,Blow By Oxygen Flow Rate 9 Narrative Exam Narrative: alert and awake not in distress facial swelling is present with facial bruising and lip swelling especially on the left side of face Quality TeleICU VTE Deep Vein Thrombosis/Pulmonary Embolism Present on Admission: No Assessment & Plan Assessment & Plan narrative: Assessment & Plan narrative: 1. Pharyngeal swelling, secondary to s/p mandibular surgery, acute, present on admission airway is stable , no stridor and no dysphagia or sob , not on oxygen, slowly getting better -consult ENT Dr. Zamora, -ED, respiratory, and anesthesiology- plan in place for emergency airway suppo rt. -patient admitted to the ICU monitoring-airway respiratory function initilally -Dr. Zamora consulted -NPO-D5 NS at 100, VS q.6 while NPO, dc npo as per swallow eval result -held VTE medication prophylaxis due to the risk of a possible bety-operative bleed. -blood cultures, chest x-ray, procalcitonin, lactate -dexamethasone 8 mg IV q.8 hours times 72 hours 2.. Hypertension, essential, chronic, present on admission -holding p.o. meds losartan, hydralazine as needed for BP management currently stable 3. Malnutrition, mild, acute on chronic, present on admission -as evidence by BMI 21.2 -patient's malnutrition places them at high risk for medical and surgical complications in relation to acute illness/chronic illness.? This increases the difficulty in complexity of medical management and increases the chances poor outcomes such as mortality and morbidity as well as impaired wound healing, and immune suppression. -dietary consult by hospitalist ordered to evaluate and implement steps to improve caloric intake and nutrition. 4. Antibiotic treatment Patient based on Cipro 400 mg IV b.i.d. and metronidazole 500 mg IV b.i.d. these will be transitioned to oral equivalents on discharge Code status:? Full Surrogate decision maker: Spouse Servando CONTRERAS PCR:? Negative DVT/VTE prophylaxis:? SCDs Quality VTE Deep Vein Thrombosis/Pulmonary Embolism Present on Admission: No
[2022-10-09] MEDS: PANTOPRAZOLE 40 MG VIAL IV (09:46)
[2022-10-09] MEDS: DEXTROSE 5%-0.9% NS 1,000 ML 100 ML IV ×2 (09:46→23:44)
[2022-10-09] MEDS: LOSARTAN 25 MG TABLET PO ×2 (09:46→14:49)
[2022-10-09] MEDS: FLEETS ENEMA 1 EACH PR ×2 (10:04→18:51)
[2022-10-09] MEDS: HYDROMORPHONE 0.5 MG INJ IV ×3 (10:38→18:51)
--- NOTE | 2022-10-09 13:10 | P.PN_ITS ---
Subjective Subjective Interval history: Patient continues to feel improved today and can open her mouth slightly more. Able to swallow apple sauce and pills better than fluid in his pending WRAPPER LEAF INSPECTOR evaluation.? Feels that the corticosteroid is slowly improving symptoms.? When patient can take in enough fluid so that she can maintain hydration at home, then at that time to be best time to discharge.? Will need to be on tapering prednisone dose at discharge.? Also based on tissue swelling/significant left cheek contusion antibiotics were initiated. Exam Vital Signs (past 8 hours): - 10/09/22 07:50 10/09/22 08:06 10/09/22 09:46 Temperature 98.8 F Pulse Rate 76 77 Respiratory Rate 22 Blood Pressure 165/82 H 165/82 H Pulse Oximetry 98 Oxygen Delivery Method Room Air Oxygen Flow Rate 0 10/09/22 10:01 Temperature Pulse Rate 81 Respiratory Rate 16 Blood Pressure Pulse Oximetry 100 Oxygen Delivery Method Room Air Oxygen Flow Rate Fraction of Inspired Oxygen 21 SaO2/FiO2 Ratio 466 Oxygen Delivery Method Room Air Oxygen Flow Rate 0 Narrative Exam Narrative: General:? Patient is a well-developed, well-nourished in no distress at this time. HEENT:? Normocephalic, patient has noted severe bruising and inflammation to left side of face, around left orbital, along left jawline, unable to visualize oropharynx, lips are bruised, is able to speak in full and complete sentences without shortness of breath, speech is not muffled. Swelling appears to be decreasing. Chest:? Normal AP diameter and contour without kyphoscoliosis, no nasal flaring, retractions, or tachypneic labored breathing Lungs:? Auscultation of all lung mccracken are clear without adventitious sounds, wheezes, rhonchi, or rales. Cardio:? S1 & S2 with regular rate and rhythm without murmur, rubs, or gallops, no carotid bruit, no cardiac pulsations present. Abdomen:? Soft nontender, negative for organomegaly, or masses.? Bowel sounds are present in all 4 quadrants without guarding or rebound, no CVA tenderness. Musculoskeletal:? Muscle strength and tone are equal within normal limits, no deformity, crepitus, effusions, cyanosis, clubbing or edema present.? Full range of motion intact radial and pedal pulses are normal. Skin:? Warm dry and intact without rashes, ulcerations or petechiae.? Neuro:? Alert and orientated x3, strength is +5/5 in all extremities, sensation to touch intact, no gross deficits noted of cranial nerves. Psych:? Patient has a well-kept appearance, appropriate affect, mental status attitude thought context and judgment are appropriate for age Objective Labs 10/09/22 04:10 10/09/22 04:10 Labs: Laboratory Results - last 24 hr 10/09/22 10/09/22 04:10 04:10 WBC 19.9 H RBC 2.82 L Hgb 9.0 L Hct 27.2 L MCV 96.6 MCH 32.0 MCHC 33.2 RDW 13.1 Plt Count 239 Neut % (Auto) 92.3 H Lymph % (Auto) 4.8 L [place] % (Auto) 2.9 L Eos % (Auto) 0.0 L Baso % (Auto) 0.0 Neut # (Auto) 94756 H Lymph # (Auto) 1000 L [place] # (Auto) 600 Eos # (Auto) 0 Baso # (Auto) 0 Sodium 139 Potassium 3.7 Chloride 109 H Carbon Dioxide 24 BUN 14 Creatinine 0.55 Estimated GFR > 60 BUN/Creatinine Ratio 25.5 H Glucose 139 H Calcium 8.3 L PFSH Medical History Chronic back pain (~2003) Colitis (~2000) Colon polyps (~2000) Crohn's disease (~2000) Hearing deficit Irritable bowel syndrome (~2015) Knee pain, left Menopause Ovarian cyst Scoliosis Skin cancer (~2014) Surgical History Anesthesia Burn of arm History of cystoscopy History of neck surgery (~2004) History of surgery History of surgery (~03/2013) S/P colon resection Status post hysterectomy (~2007) Status post laparoscopic cholecystectomy (~1979) Family History Father Age: 84 Hypertension Grandfather Stroke Grandmother Breast CA Mother Age: 81 Hypertension Obesity Grandmother Colon cancer Social History marital status: household members: spouse lives independently: Yes caregiver/support person: No housing: house Smoking Status: Former smoker second hand exposure: No alcohol intake: current substance use type: does not use Assessment & Plan Assessment & Plan narrative: 1. Pharyngeal swelling, secondary to s/p mandibular surgery, acute, present on admission -consult ENT Dr. Zamora, tele patient placement coordinator, oral surgeon, anesthesiology -on presentation -ED, respiratory, and anesthesiology- plan in place for emergency airway support. -patient admitted to the ICU monitoring-airway respiratory function -Dr. Zamora consulted-and has given advice -NPO-D5 NS at 100, VS q.6 while NPO, currently able to take some oral fluid of water -held VTE medication prophylaxis due to the risk of a possible bety-operative bleed. -blood cultures, chest x-ray, procalcitonin, lactate were done on presentation and cultures were negative -dexamethasone 8 mg IV q.8 hours times 72 hours, will stop tomorrow and initiate prednisone tapering dose tomorrow -WRAPPER LEAF INSPECTOR to evaluate swallow and advise fluid and food texture tomorrow 2.. Hypertension, essential, chronic, present on admission -initial holding p.o. meds losartan but can tolerate being crushed with applesauce to swallow, hydralazine as needed for BP management 3. Malnutrition, mild, acute on chronic, present on admission -as evidence by BMI 21.2 -patient's malnutrition places them at high risk for medical and surgical complications in relation to acute illness/chronic illness.? This increases the difficulty in complexity of medical management and increases the chances poor outcomes such as mortality and morbidity as well as impaired wound healing, and immune suppression. -dietary consult ordered to evaluate and implement steps to improve caloric intake and nutrition. 4. Antibiotic treatment Patient based on Cipro 400 mg IV b.i.d. and metronidazole 500 mg IV b.i.d. these will be transitioned to oral equivalents on discharge Follow labs and clinically. Quality VTE Deep Vein Thrombosis/Pulmonary Embolism Present on Admission: No
[2022-10-09] MEDS: KETOROLAC 30 MG/ML VIAL 15 MG IV ×3 (13:37→22:11)
--- NOTE | 2022-10-09 17:52 | PC.NURSE ---
1800- Patient home hypertension medication restarted and dose adjusted this afternoon. BP not at goal but trending down. Will monitor.
[2022-10-09] MEDS: LORazepam 2 MG/ML INJ 0.5 MG IV (22:10)
[2022-10-10] VITALS (9 sets, daily range): BP systolic 144–193; BP diastolic 71–89; PULSE 64–80; RESP 19–22; TEMP 36.4–37.5; O2SAT 97–100
[2022-10-10] MEDS: CIPROFLOXACIN 400 MG/200 ML PIGGYBACK 200 MG IV (04:03)
[2022-10-10 04:43] LABS: Add Manual Diff / Slide Review NO; Basophils Absolute Auto 0 /uL (0-100); Eosinophils Absolute Auto 0 /uL (0-450); Hematocrit 27.3 % (36-46); Hemoglobin 9.2 g/dL (12.0-16.0); Lymphocytes Absolute Auto 900 /uL (1100-4500); Lymphocytes Percent Auto 6.1 % (25-40); Mean Corpuscular HGB Conc 33.6 % (30-36); Mean Corpuscular Hemoglobin 32.4 PG (26-34); Mean Corpuscular Volume 96.4 fL (80-100); Monocytes Absolute Auto 400 /uL (0-900); Monocytes Percent Auto 2.6 % (3-14); Neutrophils Absolute Auto 14000 /uL (1500-7000); Neutrophils Percent Auto 91.3 % (50-75); Platelet Count 238 X10^3/uL (150-400); Red Blood Cell Count 2.83 X10^6/uL (4.0-5.2); Red Cell Distribution Width 12.9 % (11.6-14.8); White Blood Cell Count 15.3 X10^3/uL (4.5-11.0)
[2022-10-10 04:46] LABS: BUN Creatinine Ratio 28.8 (6-22); Blood Urea Nitrogen 15 mg/dL (7-17); Calcium 8.2 mg/dL (8.4-10.2); Carbon Dioxide 22 mmol/L (22-32); Chloride 110 mmol/L (98-107); Estimated Glomerular Filt Rate > 60 mL/min (>60); Glucose 150 mg/dL (80-110); HEMOLYSIS < 15 (0-50); Potassium 3.6 mmol/L (3.4-5.1); Sodium 138 mmol/L (137-145)
[2022-10-10] MEDS: metroNIDAZOLE 500 MG/100 ML PIGGYBACK 100 MG IV (06:02)
[2022-10-10] MEDS: DEXAMETHASONE 10 MG/ML VIAL 8 MG IV (06:03)
[2022-10-10] MEDS: KETOROLAC 30 MG/ML VIAL 15 MG IV ×2 (06:03→12:32)
[2022-10-10] MEDS: PANTOPRAZOLE DR 40 MG TABLET PO (06:05)
[2022-10-10] MEDS: ONDANSETRON 4 MG/2 ML INJ IV (06:16)
--- NOTE | 2022-10-10 06:21 | PC.NURSE ---
Patient sleeping off and on, but at 0600 check complaining of nausea. Medicated with zofran and awaiting results.
[2022-10-10] MEDS: CODEINE/GUAIFENESIN LIQUID 5ML UDC 10 ML PO (10:02)
[2022-10-10] MEDS: LOSARTAN 50 MG TABLET PO (10:02)
[2022-10-10] MEDS: ACETAMINOPHEN 325 MG TABLET 650 MG PO (10:02)
--- NOTE | 2022-10-10 10:34 | DIET.CONS2 ---
Addendum entered by Maya Bowles 10/10/22 10:41: RD agrees with automotive internet sales manager note below Original Note: Dietary Inpatient Consultation Note Admission Date: 10/07/2022 20:06 62 y/o F admitted for pharyngeal swelling secondary to s/p mandibular surgery. RD consulted for BMI 21.1 (borderline low for age). Spoke with SHIP CONSTRUCTION TEACHER, pt is to start a pureed diet with [place] thick liquid until swelling goes down. After SHIP CONSTRUCTION TEACHER consult, quickly met with pt to give pureed diet handout to make the transition at home easier and support nutrition status. Diet: 10/09/22 Dinner Low Sodium Diet (2gm) Diet Modifications: Soft foods only Safety Tray needed?: No Nutrition Percent Meal Consumed 75% 10/09/22 18:16 Percent Meal Consumed ice chips 10/08/22 17:43 Electronically Signed by: Jade Moffett 10/10/22 10:34 Clinical Dietitian [address] [id number]
--- NOTE | 2022-10-10 11:30 | P.DS_ITS ---
History of Present Illness History of Present Illness Date Patient Seen: 10/10/22 Chief complaint: post jaw surgery, trouble breathing, can't swallow Discharge Providers Provider Date of admission: 10/07/22 20:06 Discharge Date: 10/10/22 Primary care physician: Deejay Gann MD Consults: 10/07/22 20:09 Consult to Tele-black top roller Routine Comment: Consulting Provider: Jennifer Tele-intensivists Reason for consultation: Collaborative Physician services Has provider been notified: Yes 10/07/22 20:15 Consult to Dietitian, Adult Routine Comment: Reason For Exam: BMI 21.1 10/07/22 20:16 Consult to Discharge Planning Routine Comment: 10/08/22 02:32 Consult to Physician Routine Comment: Consulting Provider: Beltran Zamora Reason for consultation: Pharyngeal swelling Has provider been notified: Yes 10/08/22 14:49 Consult to Speech Therapy Evaluate & Treat Comment: to ensure adequate for sufficient fluid intake Physician Instructions: Evaluate and treat Discharge provider: Emily Flores MD Summary Hospital Course Discharge Diagnosis: Pharyngeal swelling, secondary to s/p mandibular surgery, acute, present on admission Dysphagia requiring pureed food and thickened liquids at the time of discharge Hypertension, essential, chronic, present on admission Coverage with antibiotic treatment of Cipro and metronidazole to prevent postoperative wound infection Contusion and swelling left face and neck Chronic back pain (~2003) Colitis (~2000) Colon polyps (~2000) Crohn's disease (~2000) Hearing deficit Irritable bowel syndrome (~2015) Knee pain, left history Menopause Ovarian cyst history Scoliosis Skin cancer (~2014) Burn of arm history History of cystoscopy History of neck surgery (~2004) S/P colon resection Status post hysterectomy (~2007) Status post laparoscopic cholecystectomy (~1979) Hospital Course: Lindsay Felix is a 62-year-old female with a medical history of hyperlipidemia, Crohn's disease, IBS, who underwent mandible surgery at [facility] and was discharged on the day of presentation to [facility]. She came into the ED with extreme difficulty breathing and shortness of breath with increased left- sided facial swelling bruising, inability to swallow, with a muffled voice and airway swelling and compromise.? In the ED Dr. Austin consulted anesthesiology Dr. Cameron, ENT Dr. Zamora,? surgeon Dr. Orozco, and Dr. Shover tele i ntensivist.? It was determined that the patient was able to protect her airway and required IV steroids and fluids for approximately 48-72 hours. It was recommended that she not be intubated but that if she did require airway support to place a nasopharyngeal airway.? No nasopharyngeal airway was necessary. Patient improved following epinephrine and steroid medication. Patient was continued on dexamethasone 8 mg IV every 8 hours until the time of discharge at that time she was transitioned to oral prednisone with the 1st dose of 60 mg to be taken at the times the prescriptions then tapering by 10 mg daily with the final 2 days being 5 mg only. CAMERA OPERATOR evaluated the patient and due to her dysp hagia it was recommended that the patient be on pureed food on discharge with thickened fluids. Is very cognizant of the sensation with swallowing that is causing the problem and once this settles the patient can introduce other foods following discharge. Small prescription of oxycodone 5 mg was prescribed on discharge for pain control. At the time of discharge, the patient remained to have significant bruising and some swelling left side face and left neck. On the day prior to discharge patient was having some bleeding with in her mouth area no was advised to suck Black Tea bag at home if there was any purpose persistent bleeding with the tannic acid of the Tea helping control the bleed ing. If this does not control the bleeding then the patient should seek medical attention. She was able to open her mouth approximately 1.5 cm between teeth. Patient to follow-up with both her family physician and dental/oral surgery team after discharge. Status at Discharge Cognitive/behavioral status at discharge: at baseline, oriented Functional status at discharge: independent ambulation Overall status at discharge: patient is progressing back to baseline Time Spent with Patient Time spent: Greater than 30 minutes Exam Vital Signs (past 8 hours): - 10/10/22 04:00 10/10/22 08:30 Temperature 99.1 F 99.3 F Pulse Rate 80 74 Respiratory Rate 19 21 Blood Pressure 149/83 H 158/76 H Pulse Oximetry 97 98 Oxygen Flow Rate 0 Fraction of Inspired Oxygen 21 SaO2/FiO2 Ratio 466 Oxygen Delivery Method Room Air Oxygen Flow Rate 0 Narrative Exam Narrative: General:? Patient is a well-developed, well-nourished in no distress at this time. HEENT:? Normocephalic, patient has noted severe bruising and inflammation to l eft side of face, around left orbital, along left jawline, unable to visualize oropharynx, lips are bruised and left neck is bruised. She is able to speak in full and complete sentences without shortness of breath, speech is not muffled.? Swelling appears to be decreasing. Chest:? Normal AP diameter and contour without kyphoscoliosis, no nasal flaring, retractions, or tachypneic labored breathing Lungs:? Auscultation of all lung mccracken are clear without adventitious sounds, wheezes, rhonchi, or rales. Cardio:? S1 & S2 with regular rate and rhythm without murmur, rubs, or gallops, no carotid bruit, no cardiac pulsations present. Abdomen:? Soft nontender, negative for organomegaly, or masses.? Bowel sounds are present in all 4 quadrants without guarding or rebound, no CVA tenderness. Musculoskeletal:? Muscle strength and tone are equal within normal limits, no deformity, crepitus, effusions, cyanosis, clubbing or edema present.? Full range of motion intact radial and pedal pulses are normal. Skin:? Warm dry and intact without rashes, ulcerations or petechiae.? Neuro:? Alert and orientated x3, strength is +5/5 in all extremities, sensation to touch intact, no gross deficits noted of cranial nerves. Psych:? Patient has a well-kept appearance, appropriate affect, mental status attitude thought context and judgment are appropriate for age Objective Labs 10/10/22 04:09 10/10/22 04:09 Labs: Laboratory Results - last 24 hr 10/10/22 10/10/22 04:09 04:09 WBC 15.3 H RBC 2.83 L Hgb 9.2 L Hct 27.3 L MCV 96.4 MCH 32.4 MCHC 33.6 RDW 12.9 Plt Count 238 Neut % (Auto) 91.3 H Lymph % (Auto) 6.1 L [place] % (Auto) 2.6 L Eos % (Auto) 0.0 L Baso % (Auto) 0.0 Neut # (Auto) 65229 H Lymph # (Auto) 900 L [place] # (Auto) 400 Eos # (Auto) 0 Baso # (Auto) 0 Sodium 138 Potassium 3.6 Chloride 110 H Carbon Dioxide 22 BUN 15 Creatinine 0.52 Estimated GFR > 60 BUN/Creatinine Ratio 28.8 H Glucose 150 H Calcium 8.2 L PFSH Medical History Chronic back pain (~2003) Colitis (~2000) Colon polyps (~2000) Crohn's disease (~2000) Hearing deficit Irritable bowel syndrome (~2015) Knee pain, left Menopause Ovarian cyst Scoliosis Skin cancer (~2014) Surgical History Anesthesia Burn of arm History of cystoscopy History of neck surgery (~2004) History of surgery History of surgery (~03/2013) S/P colon resection Status post hysterectomy (~2007) Status post laparoscopic cholecystectomy (~1979) Family History Father Age: 84 Hypertension Grandfather Stroke Grandmother Breast CA Mother Age: 81 Hypertension Obesity Grandmother Colon cancer Social History marital status: household members: spouse lives independently: Yes caregiver/support person: No housing: house Smoking Status: Former smoker second hand exposure: No alcohol intake: current substance use type: does not use Discharge Plan Discharge Plan Patient Disposition: Home Discharge orders & Medications Prescriptions: New losartan 50 mg Tablet 50 mg PO DAILY Qty: 30 0RF pantoprazole 40 mg Tablet,Delayed Release (Dr/Ec) 40 mg PO 0600 Qty: 30 0RF prednisone 20 mg tablet 60 mg PO DAILY 1 Days Qty: 3 0RF Rx Instructions: Take on October 10 when obtained from pharmacy. Dose on October 10 is 60 mg ciprofloxacin HCl [Cipro] 500 mg tablet 500 mg PO BID Qty: 16 0RF Rx Instructions: Start evening of October 10 metronidazole 500 mg tablet 500 mg PO TID Qty: 24 0RF Rx Instructions: Take 1st pill when obtained from pharmacy on October 10 and then 2nd pill evening of October 10 prior to bed. prednisone 50 mg tablet 50 mg PO DAILY Qty: 1 0RF Rx Instructions: Take in the morning of October 11 prednisone 20 mg tablet 40 mg PO DAILY Qty: 2 0RF Rx Instructions: Take entire dose in the morning of October 12 prednisone 10 mg tablet 10 mg PO DIRECTED Qty: 7 0RF Rx Instructions: Take 3 tablets October 13 Take 2 tablets October 14 Take 1 tablet Oct 15 Take 1/2 tablet October 16 Take 1/2 tablet October 17 oxycodone 5 mg tablet 5 mg PO Q8H PRN (Reason: pain) Qty: 10 0RF Continued scopolamine base 1 mg over 3 days patch 3 day 1 patch transdermal Q72H Qty: 1 1RF estradiol 0.05 mg/24 hr patch semiweekly See Rx Instructions .ROUTE .COMPLEX Qty: 24 3RF Dose Instruction: APPLY 1 PATCH TO SKIN FOR 3 DAYS ALTERNATING WITH 1 PATCH FOR 4 DAYS EACH WEEK Rx Instructions: APPLY 1 PATCH TO SKIN FOR 3 DAYS ALTERNATING WITH 1 PATCH FOR 4 DAYS EACH WEEK naproxen 500 mg tablet 500 mg PO BID Qty: 90 0RF alprazolam 1 mg tablet 1 mg PO BEDTIME PRN (Reason: anxiety) aspirin 81 mg tablet,delayed release (DR/EC) 325 mg PO DAILY CMP Testosterone Cream 2mg See Rx Instructions .ROUTE .COMPLEX Qty: 30 3RF Rx Instructions: Apply once a day to rotating sites, Makers; multivitamin Tablet 1 tab PO DAILY Linzess 72 mcg capsule 75 mcg PO DAILY PRN (Reason: Constipation) Patient Comments: TAKE 1 CAPSULE BY MOUTH EVERY DAY. Rx Instructions: pt only takes 75 mcg other quijano higher doses causes severe diarrhea Discontinued losartan 25 mg tablet 25 mg PO DAILY Qty: 90 3RF ertapenem 1 gram Recon Soln 1 g IV DAILY Patient Comments: started 09/14/22 Follow up/Referrals: Deejay Gann MD [Primary Care Provider] - Diet/Activity/Treatments Diet comment: [place] thick liquids with soft pureed foods Visit Report/Discharge Packet Instructions: DI for Anaphylaxis Stand Alone Forms: Patient Portal/API, Stroke Signs & Symptoms Discharge Data Primary Care Provider: Deejay Gann Quality VTE Deep Vein Thrombosis/Pulmonary Embolism Present on Admission: No
[2022-10-10] MEDS: polyethylene glycoL 3350 17 GM POWD.PACK PO (12:32)
[2022-10-10] MEDS: OXYCODONE IR 5 MG TABLET PO (14:01)
[2022-10-10] MEDS: LORazepam 1 MG TABLET PO ×2 (14:02→19:35)
[2022-10-10] MEDS: HYDRALAZINE 25 MG TABLET PO ×2 (14:08→18:27)
--- NOTE | 2022-10-10 15:28 | CM.DPC ---
DCP Discharge Home Per MD, pt is medically stable to d/c home today and no identified barriers to discharge. ST completed swallow eval with pt and recommending pt start a pureed diet with [place] thick liquid until swelling goes down and instructed on getting the packets to thicken liquids once home. Per Mink Rancher, met bedside with pt and provided handouts for recommended diet and answered questions. Plan: Patient to d/c home today via spouse POV and outpt f/u and no further SW needs at this time. DANIKA Meza
--- NOTE | 2022-10-10 18:12 | ST.IPCSEOM ---
Visit Care Team Role Provider Type Ernst Angel MD Other Providers Physician Specialty: Medical Address: Phone: Fax: Email: Olga Helm MD Other Providers Physician Specialty: Medical Address: Phone: Fax: Email: Brown Damon MD Other Providers Physician Specialty: Medical Address: [address] [place], [address] Phone: Fax: Email: Naresh Carvalho MD Other Providers Physician Specialty: Internal Medicine Address: Phone: Fax: Email: Thomas Vazquez MD Other Providers Physician Specialty: Medical Address: Phone: Fax: Email: Jaelyn Herndon MD Other Providers Physician Specialty: Anesthesiology Internal Medicine Address: [address] [place], [address] Fax: Email: [email or web address] Peter Garcia MD Other Providers Physician Specialty: Internal Medicine Address: [address] [place], [address] Phone: Fax: Email: [email or web address] Zamora MD Other Providers Physician Specialty: Ear, Nose, Throat Address: [address] [place] [address], [address] Email: [email or web address] Sundar Paez MD Other Providers Physician Specialty: Internal Medicine Address: Phone: Fax: Email: Suhail Seymour MD Other Providers Physician Specialty: Medical Address: Phone: Fax: Email: Navneet Onofre MD Other Providers Physician Specialty: Internal Medicine Address: [address] [place], [address] Phone: Fax: Email: Yunior Perez MD Other Providers Physician Specialty: Medical Address: [address], [address] Phone: Fax: Email: Alexis Quiles MD Other Providers Physician Specialty: Medical Address: Phone: Fax: Email: Lalita Ann Other Providers Physician Specialty: Medical Address: Phone: Fax: Email: Jazmin Negron MD Other Providers Physician Specialty: Internal Medicine Address: Phone: Fax: Email: Deejay Gann MD Family Provider Physician Primary Care Provider Specialty: Family Practice Address: [address] [place] [address] Email: [email or web address] DO Emergency Provider Physician Referring Provider Specialty: Emergency Medicine Address: [address] [place] [address], [facility] Email: [email or web address] Admit Provider Physician Attending Provider Specialty: Hospitalist Internal Medicine Address: [address] [place] [address], [address] Email: Current Diagnoses Essential (primary) hypertension (10/07/22) Other diseases of pharynx (10/07/22) Past Medical History (Last Reviewed 10/08/22 @ 20:33 by Emily Flores MD) Chronic back pain (Medical ~2003) Colitis (Medical ~2000) Colon polyps (Medical ~2000) Crohn's disease (Medical ~2000) Hearing deficit (Medical) Irritable bowel syndrome (Medical ~2015) Knee pain, left (Medical) Menopause (Medical) Ovarian cyst (Medical) Scoliosis (Medical) Skin cancer (Medical ~2014) Speech-Language Pathology Swallow Evaluation [facility]AD [facility] Clinical Swallow Evaluation Start: 10/10/22 10:50 Freq: Status: Active Protocol: Document 10/10/22 10:53 DEB (Rec: 10/10/22 11:03 DEB [id number]) Clinical Swallow Evaluation Session Time Visit Start Time 09:22 Visit Stop Time 09:40 Total Visit Minutes 18 Setting Assessment Location Acute Care Visit Type Note Type Initial evaluation Next Note Type Next Note Type Re-evaluation Patient Information Identification Type Name History Per H&P: Lindsay Felix is a 62-year-old female with a medical history of hyperlipidemia, Crohn's disease, IBS, who underwent mandible surgery at [facility] and was discharged earlier today who came into the ED with extreme difficulty breathing and shortness of breath with increased left- sided facial swelling bruising , inability to swallow, with a muffled voice and airway swelling and compromise. In the ED Dr. Austin consulted anesthesiology Dr. Cameron, ENT Dr. Zamora, surgeon Dr. Orozco, and Dr. Ann tele cap blocker. It was determined that the patient was able to protect her airway required IV steroids and fluids for approximately 48-72 hours it was recommended that she not be intubated but that if she did require airway support to place a nasopharyngeal airway. Currently the patient is using attempted mask to add moisture hydration and oxygen support. Patient improved following epinephrine and steroid medication. On admit patient notes that her shortness of breath has improved, swelling is decreasing, she is able to speak in full sentences without compromise, she is having significant amount of fluid accumulation and mild difficulty clearing her airway . denies chest pain, headache, changes in vision, weakness, numbness, tingling, difficulty with ambulation, recent falls, head injury, LOC , fever, body aches, chills, recent exposure to illness, abdominal pain, nausea, vomiting, urinary incontinence /retention, dysuria, frequency , urgency, hematuria, bowel changes, constipation, incontinence, melena, rashes, recent changes to medication. Pt had jaw surgery and per progress note today: Patient continues to feel improved today and can open her mouth slightly more. Able to swallow apple sauce and pills better than fluid in his pending [facility] evaluation.? Feels that the corticosteroid is slowly improving symptoms.? When patient can take in enough fluid so that she can maintain hydration at home, then at that time to be best time to discharge.? Will need to be on tapering prednisone dose at discharge.? Also based on tissue swelling/significant left cheek contusion antibiotics were initiated. Subjective Observations Pt was seated upright at edge of bed when LEAD CARGOMAN arrived. She reported numbness/tingling in her jaw and lower lip as well as limited movement secondary to jaw surgery. The left side of her face had large, dark purple bruising present, which extended down to her neck. Mouth was open at rest and pt observed to have orthodontia on her lower teeth. Reported by Patient Other Symptoms Choking,Difficulty swallowing liquids,Difficulty swallowing pills,Difficulty swallowing solids Current Diet Dysphagia mechanical,Thin liquids Baseline Feeding Method Independent in self-feeding Objective Assessment Mental Status Alert,Responsive,Cooperative Oral Integrity WFL Lip Function Moderate impairment Observation of Lips at Rest Symmetrical Pucker Reduced range of motion, Reduced strength Lip Retraction Reduced range of motion Alternating Pucker/Lip Retraction Reduced range of motion Tongue Function Moderate impairment Observations of Tongue at Rest Within normal limits Tongue Protrusion Reduced range of motion, Reduced strength Tongue Lateralization Reduced range of motion, Reduced strength Jaw Function Severe impairment Observations of Jaw at Rest Reduced range of motion Jaw Opening Reduced range of motion, Reduced strength Jaw Closing Reduced range of motion, Reduced strength Nasality Within normal limits Phonation Within normal limits Respiratory Sufficiency Within normal limits Comment Pt exhibited significant swelling on left side secondary to jaw surgery. Swelling extended to left side of mouth, though structures seemed relatively symmetrical despite swelling. All movements were limited, secondary to pain and swelling . Did not assess jaw strength or ROM due to swelling/pain/ jaw surgery. Due to limited ROM and strength, mastication is challenging and pt cannot accept large bolus sizes. She is limited to drinking through a straw due to lower lip numbness that results in anterior loss of bolus when drinking from an open cup. Food and Liquid Trials Position During Assessment Upright (90 degrees),In bed Liquids Trialed Thin,Winlock Solids Trialed Puree Administration Type Tea spoon,Cup single sip,Straw ,Self-feeding Oral Impairment Severely impaired Oral Phase Comments Did not complete trial with ice chips due to oral control and challenge presented with maintaining oral closure for prolonged period. Did not complete solid trials beyond puree due to oral bleeding reported by patient. Pt observed to take small bites/ sips due to limited ROM of jaw . No anterior loss of bolus observed. Did not assess mastication due to jaw swelling and pain. Recommend softer textures (e.g., puree) while mouth continues to heal from jaw surgery. Possible advancement of textures as oral bleeding resolves. Pharyngeal Phase Comments Throat clearing observed after every PO trial (i.e., thin water, NTLs, pudding). Wet/ gurgly vocal quality following thin liquids through straw cup. Latent throat clear present after NTLs, but no wet /gurgly vocal quality. Unable to assess silent aspiration with clinical swallow assessment. Per hospitalist, wait on completion of MBS. May complete MBS if overt signs of aspiration continue as jaw heals. Comment Unable to assess endurance due to limited trials completed. Response/Comments Attempted chin tuck which pt reported was not effective and painful positioning due to bruising from jaw surgery. Pt refused effortful swallow due to concerns for pain given jaw surgery. Findings Swallowing Function Oropharyngeal phase dysphagia Severity of Swallow Impairment Moderately-severely impaired Contributing Factors to Swallow Reduced oral strength/ Impairment coordination/sensation, Mastication inefficiency, Impaired oral-pharyngeal transport Prognosis Good Based on Comorbidities,Duration of symptoms/severity Comment The pt presents with moderately-severe oropharyngeal phase dysphagia secondary to jaw surgery. Significantly reduced ROM and strength in all oral structures which negatively impact mastication and a/p propulsion of bolus. She also exhibits difficulty with opening and closing mouth to accept boluses. All PO trials completed today were followed by throat clearing, indicating possible aspiration/ penetration. Waiting to complete MBS per hospitalist order and to see if aspiration risk subsides with continued recovery from jaw surgery. Recommend puree textures and NTLs to reduce risk of aspiration and increase comfort with oral intake. Recommend speech therapy to follow-up for monitoring of swallow safety and diet modifications as necessary to ensure adequate nutrition/ hydration. Impact on Safety and Functioning Risk for aspiration,Risk for inadequate nutrition/hydration Recommendations Instrumental Assessment No Swallowing Treatment Yes Frequency 1x per day Recommended Solids Puree Recommended Liquids Winlock Safety Precautions/Swallowing Feed only when alert,Reduce Recommendations distractions,Remain upright ( 90 degrees) during all oral intake,Upright position at least 30 minutes after meals, Small bites and sips when eating,Slow rate; swallow between bites,Sip by straw only,Multiple swallows Medication Recommendations Whole in Carrier Discharge Recommendations Home,Outpatient therapy Comments Outpatient speech therapy if continued swallow difficulty Education Patient/Caregiver Education Described results of evaluation,Patient expressed understanding of evaluation, Patient expressed agreement with goals & treatment plans, Patient expressed understanding of safety precautions,Patient expressed understanding of feeding recommendations,Patient requires further education/ training Goals Long-term Goals The pt will safely tolerate least restrictive diet to meet her nutrition and hydration needs.
--- NOTE | 2022-10-10 19:19 | PC.NURSE ---
Prior to discharge, patient began noticing sanguineous drainage from mouth. Upon palpation of inside of left cheek, a pocket of fluid was appreciated and immediately drained. MD aware. Mouth rinses per post op orders.
[2022-10-10] MEDS: predniSONE 20 MG TABLET 60 MG PO (19:50)
[2022-10-10 20:21] LABS: Enterococcus faecalis Not Detected (Not Detect); Enterococcus faecium Not Detected (Not Detect); Listeria monocytogenes Not Detected (Not Detect)
[2022-10-10 20:22] LABS: Acinetobacter calcoa-baumannii Not Detected (Not Detect); Bacteroides fragilis Not Detected (Not Detect); Candida albicans Not Detected (Not Detect); Candida auris Not Detected (Not Detect); Candida glabrata Not Detected (Not Detect); Candida krusei Not Detected (Not Detect); Candida parapsilosis Not Detected (Not Detect); Candida tropicalis Not Detected (Not Detect); Cryptococcus neoformans/gatti Not Detected (Not Detect); Enterobacter cloacae complex Not Detected (Not Detect); Enterobacterales Not Detected (Not Detect); Haemophilus influenzae Not Detected (Not Detect); Klebsiella aerogenes Not Detected (Not Detect); Neisseria meningitidis Not Detected (Not Detect); Proteus species Not Detected (Not Detect); Pseudomonas aeruginosa Not Detected (Not Detect); Salmonella species Not Detected (Not Detect); Serratia marcescens Not Detected (Not Detect); Staphylococcus epidermidis Not Detected (Not Detect); Staphylococcus lugdunensis Not Detected (Not Detect); Staphylococcus species Not Detected (Not Detect); Stenotrophomonas maltophilia Not Detected (Not Detect); Streptococcus agalactiae (Gr B Not Detected (Not Detect); Streptococcus pneumonia Not Detected (Not Detect); Streptococcus pyogenes (Gr A) Not Detected (Not Detect); Streptococcus species Not Detected (Not Detect)
--- NOTE | 2022-10-10 20:33 | PC.NURSE ---
Patient discharged via with all of her belongings. Discharge instructions discussed in depth with Yulissa COLEMAN, including medication regimen. 60 mg Prednisone given. Repeat BP 165/82, minimal bloody drainage from mouth.
== END 2022-10-10 20:35 | disposition home or self-care (01) | DRG 920 ==
LOC: ED 19:21 → AC 20:07 → ICU 20:45
PROVIDERS: Admitting Provider Nurse Practitioner Family; Emergency Provider Emergency Medicine; Family Provider Family Medicine; PCP Family Medicine; Referring Provider Emergency Medicine; Visit Provider Nurse Practitioner Family
DX: M96.89 Other intraoperative and postprocedural complications and disorders of the musculoskeletal system (principal); E44.1 Mild protein-calorie malnutrition; J39.2 Other diseases of pharynx; I10 Essential (primary) hypertension; Z68.21 Body mass index [BMI] 21.0-21.9, adult; Z20.822 Contact with and (suspected) exposure to COVID-19; Z87.891 Personal history of nicotine dependence
CPT/HCPCS: 36415; 70491; 71046; 80048; 80053; 82962; 83605; 83735; 84145; 85025; 85610; 85730; 87040; 87154; 87635; 87797; 92610; 96372; 96374; 96375; 96376; 99232; 99284; 99291; C9803; C9113; J0171; J0360; J0744; J1100; J1170; J1885; J2060; J2270; J2405

== ENCOUNTER → 2024-01-17 09:20 | Outpatient (CLI) | payer OTHER, SELFPAY ==
[2022-10-07 23:00] VITALS: BMI 21.2
[2024-01-17 10:31] LABS: Alanine Aminotransferase 15 IU/L (<35); Albumin 4.3 g/dL (3.5-5.0); Albumin Globulin Ratio 1.4 (1.0-2.8); Alkaline Phosphatase 61 U/L (38-126); Aspartate Aminotransferase 25 IU/L (14-36); BUN Creatinine Ratio 21.7 (6-22); Bilirubin Total 0.5 mg/dL (0.2-1.3); Blood Urea Nitrogen 15 mg/dL (7-17); Calcium 9.5 mg/dL (8.4-10.2); Carbon Dioxide 26 mmol/L (22-32); Chloride 107 mmol/L (98-107); Cholesterol 185 mg/dL (140-199); Estimated Glomerular Filt Rate > 60 mL/min (>60); Globulin 3.1 g/dL (1.7-4.1); Glucose 95 mg/dL (80-110); HDL Cholesterol 87 mg/dL (40-60); HEMOLYSIS < 15 (0-50); LDL Cholesterol Calculated 87 mg/dL (<100); Potassium 4.7 mmol/L (3.4-5.1); Sodium 138 mmol/L (137-145); Total Protein 7.4 g/dL (6.3-8.2); Triglycerides 55 mg/dL (35-150)
[2024-01-17 10:58] LABS: TSH w/ Reflex to FT4 0.46 uIU/mL (0.47-4.68)
[2024-01-17 11:28] LABS: Free T4, Direct Thyroxine 0.89 ng/dL (0.78-2.19)
[2024-01-17 15:00] LABS: Creatinine Urine Random 27.45 mg/dL
[2024-01-17 15:07] LABS: Microalbumin Urine Random < 0.6 mg/dL (0-1.6)
[2024-01-18 07:11] LABS: Apolipoprotein B 70 mg/dL (<90)
[2024-01-18 14:52] LABS: Hep C Virus Ab w/Reflex Quant NEGATIVE s/c (NEGATIVE)
== END ==
PROVIDERS: Family Provider Family Medicine; PCP Family Medicine; Referring Provider Family Medicine; Visit Provider Family Medicine
DX: Z00.00 Encounter for general adult medical examination without abnormal findings (principal); I10 Essential (primary) hypertension; K50.90 Crohn's disease, unspecified, without complications; M54.9 Dorsalgia, unspecified; G89.29 Other chronic pain
CPT/HCPCS: 36415; 80053; 80061; 82043; 82172; 82570; 84439; 84443; 86803

== ENCOUNTER → 2024-01-26 14:07 | Outpatient (CLI) | payer OTHER, SELFPAY ==
[2022-10-07 23:00] VITALS: BMI 21.2
== END ==
PROVIDERS: Family Provider Family Medicine; PCP Family Medicine; Visit Provider Nurse Practitioner Family
DX: R30.0 Dysuria (principal); N94.89 Other specified conditions associated with female genital organs and menstrual cycle
CPT/HCPCS: 87077; 87086; 87186; 87210